=== PATIENT | male | born 1995 | race American Indian/Alaskan Native ===

== ENCOUNTER 2017-03-12 05:49 | Emergency (ER) | payer BC, MEDICAID ==
[2017-03-12 05:49] VITALS: BMI 21.1
[2017-03-12 06:23] VITALS: BP 136/89; PULSE 78; RESP 18; TEMP 98.2; O2SAT 99
--- NOTE | 2017-03-12 06:31 | ED PDOC ---
Arrival/HPI <Erik Yu - Last Filed: 03/12/17 06:51> - General Historian: Patient <Joann Vizcarra - Last Filed: 03/12/17 06:55> - General Chief Complaint: Dental Pain Time Seen by Provider: 03/12/17 06:03 - History of Present Illness Narrative History of Present Illness (Text): 03/12/17 06:27 21 y/o M presents to the ED w/ c/o dental/mouth pain. Pt reports having his R lower wisdom tooth removed on . Pt was prescribed Advil 600mg, Percocet , and PCN. Pt reports taking all medications as prescribed; however, pain is increasing. Pt admits small area of numbness along R mandible as well as swollen glands in R neck. Pt denies F/C, sweating, body aches. Pt denies blooding beyond POD#1. Pt has been chewing gum daily and admits to taking a shot of EtOH last night in an attempt to relieve the pain, however pain worsened. (Joann Vizcarra) Past Medical History - Provider Review Nursing Documentation Reviewed: Yes - Cardiac Hx Cardiac Disorders: No - Pulmonary Hx Respiratory Disorders: No - Neurological Hx Neurological Disorder: No - HEENT Hx HEENT Disorder: No - Renal Hx Renal Disorder: No - Endocrine/Metabolic Hx Endocrine Disorders: No - Hematological/Oncological Hx Blood Disorders: No - Integumentary Hx Dermatological Disorder: Yes Other/Comment: Abcess removed from R arm - Musculoskeletal/Rheumatological Hx Musculoskeletal Disorders: No - Gastrointestinal Hx Gastrointestinal Disorders: No - Genitourinary/Gynecological Hx Genitourinary Disorders: No - Psychiatric Hx Psychophysiologic Disorder: No Hx Substance Use: No - Surgical History Other/Comment: Abcess removal from R arm - Anesthesia Hx Anesthesia: Yes Hx Anesthesia Reactions: No Hx Malignant Hyperthermia: No <Joann Vizcarra - Last Filed: 03/12/17 06:55> Family/Social History - Physician Review Nursing Documentation Reviewed: Yes Family/Social History: No Known Family HX Smoking Status: Never Smoked Hx Alcohol Use: Yes Hx Substance Use: No <Joann Vizcarra - Last Filed: 03/12/17 06:55> Allergies/Home Meds <Erik Yu - Last Filed: 03/12/17 06:51> <Joann Vizcarra - Last Filed: 03/12/17 06:55> Allergies/Adverse Reactions: Allergies No Known Allergies Allergy (Verified 04/13/16 15:54) Review of Systems - Physician Review All systems were reviewed & negative as marked: Yes - Review of Systems Constitutional: absent: Fevers Respiratory: absent: SOB <Joann Vizcarra - Last Filed: 03/12/17 06:55> Physical Exam Vital Signs Reviewed: Yes Temperature: Afebrile Blood Pressure: Normal Pulse: Regular Respiratory Rate: Normal Appearance: Positive for: Non-Toxic, Uncomfortable Pain Distress: Moderate Mental Status: Positive for: Alert and Oriented X 3 - Systems Exam Head: Present: Atraumatic, Normocephalic Pupils: Present: PERRL Extroacular Muscles: Present: EOMI Conjunctiva: Present: Normal Mouth: Present: Moist Mucous Membranes, Normal Lips, Normal Tounge, Other (R manibular wisdom tooth removed. inflammed, erythematous, edematous. buccal swelliing) Pharnyx: Present: Normal. No: TONSILS ENLARGED, Peritonsilar Swelling Nose (External): Present: Atraumatic Neck: Present: Lymphadenopathy (R anterior/submandibular) Cardiovascular: Present: Regular Rate and Rhythm, Normal S1, S2. No: Murmurs Neurological: Present: GCS=15, Speech Normal Skin: Present: Warm, Dry, Normal Color Lymphatic: Present: Cervical Adenopathy Psychiatric: Present: Alert, Oriented x 3, Normal Affect, Normal Mood <Joann Vizcarra - Last Filed: 03/12/17 06:55> Vital Signs Temp Pulse Resp BP Pulse Ox 03/12/17 06:20 98.2 F 78 18 136/89 99 Medical Decision Making <Erik Yu - Last Filed: 03/12/17 06:51> <Joann Vizcarra - Last Filed: 03/12/17 06:55> ED Course and Treatment: Impression: Pt seen and evaluated with resident. Pt presented for dental pain. Pt states he had right lower wisdom tooth removed on 3 days ago and prescribed Advil and Percocet. Pt states dental pain has worsened since then. Aware and agree with HPI, clinical findings, plan, and management. Plan: -- Cleocin -- Toradol -- Reassess and disposition Progress Notes: (Erik Yu) 03/12/17 06:38 21 y/o M s/p R mandibular tooth extraction - clindamycin 300mg Q6hr x7days - Toradol 30mg Stat - f/u w/ dental surgeon (Joann Vizcarra) - Medication Orders Current Medication Orders: Discontinued Medications Clindamycin HCl (Cleocin) 300 mg PO STAT STA PRN Reason: Protocol Stop: 03/12/17 06:49 Ketorolac Tromethamine (Toradol) 60 mg IM STAT STA Stop: 03/12/17 06:49 - PA / [employer] / Resident Statement JESSE has reviewed & agrees with the documentation as recorded. / has examined the patient and agrees with the treatment plan. <Erik Yu - Last Filed: 03/12/17 06:51> Disposition/Present on Arrival <Erik Yu - Last Filed: 03/12/17 06:51> - Present on Arrival Any Indicators Present on Arrival: No History of DVT/PE: No History of Uncontrolled Diabetes: No Urinary Catheter: No History of Decub. Ulcer: No History Surgical Site Infection Following: None - Disposition Have Diagnosis and Disposition been Completed?: Yes Disposition Time: 06:52 <Joann Vizcarra - Last Filed: 03/12/17 06:55> - Disposition Diagnosis: S/P wisdom tooth extraction Disposition: HOME/ ROUTINE Condition: GOOD Discharge Instructions (ExitCare): Dry Socket (ED), Tooth Extraction (ED) Additional Instructions: follow up w/ Dental surgery stop taking Penicillin Take all of Clindamycin Stop gum chewing until cleared by dentist. do not mix narcotics and alcohol do not drive or operate machinery while taking narcotics Prescriptions: Clindamycin [Cleocin] 300 mg PO Q6 #28 cap
== END 2017-03-12 07:07 | disposition home or self-care (01) ==
LOC: ED 05:49
DX: K08.409 Partial loss of teeth, unspecified cause, unspecified class (principal)
CPT/HCPCS: 96372; 99282; J1885

== ENCOUNTER 2018-01-05 17:10 | Inpatient (IN) | payer BC ==
[2018-01-05 17:14] VITALS: BMI 21.9
[2018-01-05] MEDS ORDERED: Sodium Chloride 0.9% 1,000 ML IV STA ×2 (17:38→20:29)
--- NOTE | 2018-01-05 17:39 | ED PDOC ---
Arrival/HPI - General Chief Complaint: GI Problem Time Seen by Provider: 01/05/18 17:29 Historian: Patient - History of Present Illness Narrative History of Present Illness (Text): 01/05/18 17:49 22yo male who was bib EMS with complaint of epigastric abdominal pain, nausea, vomiting since last night. The girlfriend by the bedside states he was [place] [facility] [place] and he was told he have gastritis. States he was discharged with Zofran prescription, but have not been able to picker feeder the prescription. States abdominal pain started after multiple episodes of nonbloody /billious vomiting. +chills. Denies fever, diarrhea, constipation, chest pain, melena, hematemesis, sick contact, travel, any other complaint. Past Medical History - Provider Review Nursing Documentation Reviewed: Yes - Infectious Disease Hx of Infectious Diseases: None - Cardiac Hx Cardiac Disorders: No - Pulmonary Hx Respiratory Disorders: No - Neurological Hx Neurological Disorder: No - HEENT Hx HEENT Disorder: No - Renal Hx Renal Disorder: No - Endocrine/Metabolic Hx Endocrine Disorders: No - Hematological/Oncological Hx Blood Disorders: No - Integumentary Hx Dermatological Disorder: Yes Other/Comment: Abcess removed from R arm - Musculoskeletal/Rheumatological Hx Musculoskeletal Disorders: No - Gastrointestinal Hx Gastrointestinal Disorders: No - Genitourinary/Gynecological Hx Genitourinary Disorders: No - Psychiatric Hx Psychophysiologic Disorder: No Hx Substance Use: Yes - Surgical History Other/Comment: Abcess removal from R arm - Anesthesia Hx Anesthesia: Yes Hx Anesthesia Reactions: No Hx Malignant Hyperthermia: No Family/Social History - Physician Review Nursing Documentation Reviewed: Yes Family/Social History: Unknown Family HX Smoking Status: Light Smoker < 10 Cigarettes Daily Hx Alcohol Use: Yes Frequency of alcohol use: Socially Hx Substance Use: Yes Substance used: marijuana; percocet Allergies/Home Meds Allergies/Adverse Reactions: Allergies No Known Allergies Allergy (Verified 04/13/16 15:54) Home Medications: Home Meds Medication Instructions Recorded Confirmed No Known Home Med 01/05/18 01/05/18 Review of Systems - Physician Review All systems were reviewed & negative as marked: Yes - Review of Systems Constitutional: Normal Eyes: Normal ENT: Normal Respiratory: Normal Cardiovascular: Normal Gastrointestinal: Abdominal Pain, Nausea, Vomiting. absent: Constipation, Diarrhea, Hematochezia, Hematemesis Genitourinary Male: Normal Musculoskeletal: Normal Skin: Normal Neurological: Normal Endocrine: Normal Hemo/Lymphatic: Normal Psychiatric: Normal Physical Exam Vital Signs Reviewed: Yes Vital Signs Temp Pulse Resp BP Pulse Ox 01/05/18 17:23 97.6 F 58 L 18 138/95 H 100 Temperature: Afebrile Blood Pressure: Normal Pulse: Regular Respiratory Rate: Normal Appearance: Positive for: Well-Appearing, Non-Toxic, Comfortable Pain Distress: None Mental Status: Positive for: Alert and Oriented X 3 - Systems Exam Head: Present: Atraumatic, Normocephalic Pupils: Present: PERRL Extroacular Muscles: Present: EOMI Conjunctiva: Present: Normal Mouth: Present: Moist Mucous Membranes Neck: Present: Normal Range of Motion Respiratory/Chest: Present: Clear to Auscultation, Good Air Exchange. No: Respiratory Distress, Accessory Muscle Use Cardiovascular: Present: Regular Rate and Rhythm, Normal S1, S2. No: Murmurs Abdomen: Present: Tenderness (Epigastric tenderness), Normal Bowel Sounds, Other (soft). No: Distention, Peritoneal Signs, Rebound, Guarding, McBurney's Point Tender, Rovsing's Sign Present Back: Present: Normal Inspection Upper Extremity: Present: Normal Inspection. No: Cyanosis, Edema Lower Extremity: Present: Normal Inspection. No: Edema Neurological: Present: GCS=15, CN II-XII Intact, Speech Normal Skin: Present: Warm, Dry, Normal Color. No: Rashes Psychiatric: Present: Alert, Oriented x 3, Normal Insight, Normal Concentration Medical Decision Making ED Course and Treatment: 01/05/18 19:58 IMPRESSION: There is infiltration of fat noted adjacent to the descending colon. Question diverticulitis versus colitis due to infectious versus inflammatory. 01/05/18 20:52 Pt continued to vomit in ED after antiemesis was given at different times in ED. He was hydrated. Leukocytosis without a shift was noted. abdominal/pelvis CT as noted above. Pt was admitted secondary to his intra table vomiting. Flagyl and cipro was given in ED Case was JULIETTE Womack and he accepted pt to his service. - Lab Interpretations Lab Results: 01/05/18 17:20 01/05/18 17:20 Lab Results 01/05/18 17:35: PT 12.2, INR 1.07, APTT 32.3 01/05/18 17:20: Urine Opiates Screen Negative, Urine Methadone Screen Negative, Ur Barbiturates Screen Negative, Ur Phencyclidine Scrn Negative, Ur Amphetamines Screen Negative, U Benzodiazepines Scrn Negative, U Oth Cocaine Metabols Negative, U Cannabinoids Screen Positive H 01/05/18 17:20: Sodium 142, Potassium 4.1, Chloride 105, Carbon Dioxide 22, Anion Gap 19, BUN 11, Creatinine 0.9, Est GFR ( Amer) > 60, Est GFR (Non- Af Amer) > 60, Random Glucose 118 H, Calcium 10.5, Total Bilirubin 0.9, AST 40, ALT 34, Alkaline Phosphatase 71, Total Protein 8.6 H, Albumin 5.0 H, Globulin 3.6, Albumin/Globulin Ratio 1.4, Lipase 37 01/05/18 17:20: Urine Color Yellow, Urine Appearance Clear, Urine pH 7.0, Ur Specific [place] 1.020, Urine Protein Negative, Urine Glucose (UA) Negative, Urine Ketones Trace H, Urine Blood Negative, Urine Nitrate Negative, Urine Bilirubin Negative, Urine Urobilinogen 0.2, Ur Leukocyte Esterase Negative 01/05/18 17:20: WBC 13.7 H, RBC 5.66, Hgb 16.7, Hct 44.6, MCV 78.8 L, MCH 29.5, MCHC 37.4 H, RDW 13.9, Plt Count 280, MPV 10.2, Gran % 67.9, Lymph % (Auto) 24.9 , [place] % (Auto) 3.4, Eos % (Auto) 3.7, Baso % (Auto) 0.1, Gran # 9.27 H, Lymph # (Auto) 3.4, [place] # (Auto) 0.5, Eos # (Auto) 0.5, Baso # (Auto) 0.02 - RAD Interpretation Radiology Orders: 01/05/18 18:06 ABD & PELVIS IV CONTRAST ONLY [CT] Stat - Medication Orders Current Medication Orders: Ciprofloxacin (Cipro 400mg/200ml Dsw) 400 mg in 200 mls @ 133.3 mls/hr IVPB STAT STA PRN Reason: Protocol Stop: 01/05/18 21:40 Metronidazole (Flagyl) 500 mg in 100 mls @ 100 mls/hr IVPB STAT STA PRN Reason: Protocol Stop: 01/05/18 21:09 Last Admin: 01/05/18 20:26 Dose: 100 mls/hr eMAR Start Stop Document 01/05/18 20:26 CNR (Rec: 01/05/18 20:26 CNR [id number]) Intravenous Solution Start Date 01/05/18 Start Time 20:26 End Date 01/05/18 End time 21:26 Total Infusion Time 60 Sodium Chloride (Sodium Chloride 0.9%) 1,000 mls @ 999 mls/hr IV .Q1H1M STA Stop: 01/05/18 21:29 Last Admin: 01/05/18 20:50 Dose: 999 mls/hr eMAR Start Stop Document 01/05/18 20:50 CNR (Rec: 01/05/18 20:50 CNR [id number]) Intravenous Solution Start Date 01/05/18 Start Time 20:50 Discontinued Medications Famotidine (Pepcid) 20 mg IVP STAT STA Stop: 01/05/18 17:39 Last Admin: 01/05/18 17:52 Dose: 20 mg IVP Administration Document 01/05/18 17:52 SF (Rec: 01/05/18 17:52 [email or web address] Charges for Administration # of IVP Administrations 1 Sodium Chloride (Sodium Chloride 0.9%) 1,000 mls @ 1,000 mls/hr IV .Q1H STA Stop: 01/05/18 18:37 Last Admin: 01/05/18 17:53 Dose: 1,000 mls/hr eMAR Start Stop Document 01/05/18 17:53 SF (Rec: 01/05/18 17:53 SF [facility] [email or web address]) Intravenous Solution Start Date 01/05/18 Start Time 17:53 End Date 01/05/18 End time 18:53 Total Infusion Time 60 Metoclopramide HCl (Reglan) 10 mg IVP STAT STA Stop: 01/05/18 19:10 Last Admin: 01/05/18 19:45 Dose: 10 mg IVP Administration Document 01/05/18 19:45 CNR (Rec: 01/05/18 19:45 CNR [id number]) Charges for Administration # of IVP Administrations 1 Ondansetron HCl (Zofran Inj) 4 mg IVP STAT STA Stop: 01/05/18 17:39 Last Admin: 01/05/18 17:52 Dose: 4 mg IVP Administration Document 01/05/18 17:52 SF (Rec: 01/05/18 17:52 SF [email or web address]) Charges for Administration # of IVP Administrations 1 Ondansetron HCl (Zofran Inj) 4 mg IVP STAT STA Stop: 01/05/18 20:27 Last Admin: 01/05/18 20:50 Dose: 4 mg IVP Administration Document 01/05/18 20:50 CNR (Rec: 01/05/18 20:50 CNR [id number]) Charges for Administration # of IVP Administrations 1 Pantoprazole Sodium (Protonix Inj) 40 mg IVP STAT STA Stop: 01/05/18 20:28 Last Admin: 01/05/18 20:50 Dose: 40 mg IVP Administration Document 01/05/18 20:50 CNR (Rec: 01/05/18 20:50 CNR [id number]) Charges for Administration # of IVP Administrations 1 Disposition/Present on Arrival - Present on Arrival Any Indicators Present on Arrival: No History of DVT/PE: No History of Uncontrolled Diabetes: No Urinary Catheter: No History of Decub. Ulcer: No History Surgical Site Infection Following: None - Disposition Have Diagnosis and Disposition been Completed?: Yes Diagnosis: Diverticulitis, Colitis, Intractable vomiting Disposition: HOSPITALIZED Disposition Time: 20:15 Patient Plan: Admission Patient Problems: Current Active Problems Problem Status Onset Colitis Acute Diverticulitis Acute Intractable vomiting Acute Condition: FAIR Forms: Team My Mobile (Ukrainian)
[2018-01-05 18:03] LABS: BASO # 0.02 K/mm3 (0.0-2.0); BASO % 0.1 % (0.0-3.0); EOS # 0.5 (0.0-0.7); EOS % 3.7 % (1.5-5.0); GRAN # 9.27 (1.4-6.5); GRAN % 67.9 % (50.0-68.0); HEMOGLOBIN 16.7 g/dL (14.0-18.0); LYMPH # 3.4 (1.2-3.4); LYMPH % 24.9 % (22.0-35.0); MEAN CELL VOLUME 78.8 fl (80.0-105.0); MEAN CORPUSCULAR HEMOGLOBIN 29.5 pg (25.0-35.0); MEAN CORPUSCULAR HGB CONC 37.4 g/dl (31.0-37.0); MEAN PLATELET VOLUME 10.2 fl (7.0-11.0); MONO # 0.5 (0.1-0.6); MONO % 3.4 % (1.0-6.0); RBC 5.66 10^6/uL (3.5-6.1); RED CELL DISTRIBUTION WIDTH 13.9 % (11.5-14.5); WHITE BLOOD COUNT 13.7 10^3/ul (4.5-11.0)
[2018-01-05 18:04] LABS: URINE BILIRUBIN NEGATIVE (NEGATIVE); URINE BLOOD NEGATIVE (NEGATIVE); URINE GLUCOSE (UA) NEGATIVE (NEGATIVE); URINE LEUKOCYTE ESTERASE NEGATIVE Leu/uL (NEGATIVE); URINE PROTEIN NEGATIVE mg/dL (<30 mg/dL); URINE UROBILINOGEN 0.2 E.U./dL (<1 E.U./dL)
[2018-01-05 18:05] LABS: URINE APPEARANCE CLEAR (CLEAR); URINE COLOR YELLOW (YELLOW)
[2018-01-05 18:10] LABS: ALB/GLOB RATIO 1.4 (1.1-1.8); CALCIUM 10.5 mg/dL (8.4-10.5); GFR AFRICAN-AMERICAN > 60; GFR NON-AFRICAN AMERICAN > 60; LIPASE 37 U/L (23-300)
[2018-01-05 18:11] LABS: INR 1.07 (0.93-1.08); PARTIAL THROMBOPLASTIN TIME 32.3 Seconds (25.1-36.5); PROTHROMBIN TIME 12.2 SECONDS (9.4-12.5)
[2018-01-05 18:12] LABS: ALT/SGPT 34 U/L (7-56); AST/SGOT 40 U/L (17-59); BLOOD UREA NITROGEN 11 mg/dL (7-21)
[2018-01-05] MEDS ORDERED: Iohexol 350 MG/100 ML VIAL ONE (18:12)
[2018-01-05 19:00] LABS: BARBITURATES, UR NEGATIVE (NEGATIVE); BENZODIAZEPINES, UR NEGATIVE (NEGATIVE); OPIATES, UR NEGATIVE (NEGATIVE); PHENCYCLIDINE, UR NEGATIVE (NEGATIVE)
[2018-01-05] MEDS ORDERED: Ciprofloxacin 400mg/200ml D5W 400 MG/200 ML BAG IVPB STA (20:10)
[2018-01-05] MEDS ORDERED: metroNIDAZOLE IV 500 mg/100 ml 500 MG/100 ML BAG IVPB STA (20:10)
[2018-01-05] MEDS: Dextrose 5%/0.9% NS 1,000 ML IV SCH (22:09)
--- NOTE | 2018-01-05 23:00 | CP.PCM.HP ---
<Pk Heredia - Last Filed: 01/05/18 22:52> History of Present Illness - History of Present Illness History of Present Illness: CC: Nausea and Vomiting Pt is a 22 yo M with no significant PMH presents to [facility] [place] due to a 1 day history of abdominal pain, nausea, and vomiting. Pt states that symptoms started late last night and have been continuous all through the day today. Pt states that vomiting was initially clear, but has progressively become more frequent and yellow in color. Pt states that he is experiencing chills and starting to see some streaks of blood in his vomit this evening. Pt states that abdominal is sharp in epigastric region. Pt states that he ate chicken for dinner last night and does not believe he has food poisoning. Pt denies any recent travel or sick contacts. [place] [facility] [place] and was discharged with a diagnosis of gastritis and a prescription for Zofran. Of note, patient admits to daily marijuana use and social EtOH use. Pt states that he has been dealing with some back pain for the last month and has been taking 2 percocets daily, last dose was 3 days ago. Pt denies CP, SOB, diarrhea, constipation, urinary symptoms, fever, [place], or dizziness. PMH: Denied Surg: Denied All: NKDA SH: 1-2 cigarettes/day for 3 yrs, social EtOH use, and marijuana use daily FHx: Non-contributory Present on Admission - Present on Admission Any Indicators Present on Admission: No Review of Systems - Review of Systems Review of Systems: 12 point ROS reviewed and is negative other than what is stated in HPI. Past Patient History - Infectious Disease Hx of Infectious Diseases: None - Past Social History Smoking Status: Light Smoker < 10 Cigarettes Daily - CARDIAC Hx Cardiac Disorders: No - PULMONARY Hx Respiratory Disorders: No - NEUROLOGICAL Hx Neurological Disorder: No - HEENT Hx HEENT Problems: No - RENAL Hx Chronic Kidney Disease: No - ENDOCRINE/METABOLIC Hx Endocrine Disorders: No - HEMATOLOGICAL/ONCOLOGICAL Hx Blood Disorders: No - INTEGUMENTARY Hx Dermatological Problems: Yes Other/Comment: Abcess removed from R arm - MUSCULOSKELETAL/RHEUMATOLOGICAL Hx Musculoskeletal Disorders: No - GASTROINTESTINAL Hx Gastrointestinal Disorders: No - GENITOURINARY/GYNECOLOGICAL Hx Genitourinary Disorders: No - PSYCHIATRIC Hx Psychophysiologic Disorder: No Hx Substance Use: Yes - SURGICAL HISTORY Other/Comment: Abcess removal from R arm - ANESTHESIA Hx Anesthesia: Yes Hx Anesthesia Reactions: No Hx Malignant Hyperthermia: No Meds Allergies/Adverse Reactions: Allergies Allergy/AdvReac Type Severity Reaction Status Date / Time No Known Allergies Allergy Verified 04/13/16 15:54 Physical Exam - Constitutional Appears: In Acute Distress - Head Exam Head Exam: NORMAL INSPECTION - Eye Exam Eye Exam: Normal appearance - ENT Exam ENT Exam: Mucous Membranes Moist - Neck Exam Neck exam: Positive for: Normal Inspection - Respiratory Exam Respiratory Exam: Clear to Auscultation Bilateral. absent: Rales, Rhonchi, Wheezes - Cardiovascular Exam Cardiovascular Exam: RRR, +S1, +S2. absent: Diastolic murmur, Gallop, Rubs, Systolic Murmur - GI/Abdominal Exam GI & Abdominal Exam: Guarding, Tenderness (diffuse, greatest in epigastric region). absent: Distended, Rebound - Extremities Exam Extremities exam: Positive for: normal inspection - Back Exam Back exam: NORMAL INSPECTION - Neurological Exam Neurological exam: Alert, CN II-XII Intact, Oriented x3 - Psychiatric Exam Psychiatric exam: Normal Affect, Normal Mood - Skin Skin Exam: Dry, Intact, Normal Color, Warm Results - Vital Signs Recent Vital Signs: Last Vital Signs Temp 97.9 F 01/05/18 21:30 Pulse 64 01/05/18 21:30 Resp 18 01/05/18 21:30 BP 142/86 01/05/18 21:30 Pulse Ox 100 01/05/18 21:30 - Labs Result Diagrams: 01/05/18 17:20 01/05/18 17:20 Assessment & Plan - Assessment and Plan (Free Text) Assessment: 22 yo M with no significant PMH admitted for intractable abdominal pain, nausea , vomiting. Plan: 1. Abdominal pain with persistent nausea and vomiting - Possible marijuana withdrawal vs. enteric infectious/inflammatory process - CT abdomen/pelvis showed questionable diverticulitis vs. colitis due to infectious vs inflammatory - UDS positive for cannabinoids - Hepatitis panel, HIV, and RPR ordered - D5NS at 125 cc/hr - Zofran 4 mg q4h prn for nausea - Protonix 40 mg IVP q12h - Zosyn IVPB q6h - NPO - GI consulted 2. Possible alcohol withdrawal - [facility] protocol - Ativan 1mg q2h prn - Haldol 2 mg IM q8h prn - Thiamine IV daily 3. Tobacco abuse - Nicotine patch GI/DVT PPx - Protonix - SCDs/AE hose <Ron Womack U - Last Filed: 01/09/18 12:08> Results - Vital Signs Recent Vital Signs: Last Vital Signs Temp 98 F 01/09/18 07:45 Pulse 60 01/09/18 07:45 Resp 20 01/09/18 07:45 BP 99/55 L 01/09/18 07:45 Pulse Ox 98 01/09/18 07:45 - Labs Result Diagrams: 01/08/18 06:00 01/08/18 06:00 Attending/Attestation - Attestation I have personally seen and examined this patient.: Yes I have fully participated in the care of the patient.: Yes I have reviewed all pertinent clinical information: Yes
[2018-01-06] MEDS: Dextrose 5%/0.9% NS 1,000 ML IV SCH ×2 (05:17→18:01)
[2018-01-06 08:01] LABS: BASO # 0.02 K/mm3 (0.0-2.0); BASO % 0.1 % (0.0-3.0); EOS % 0.1 % (1.5-5.0); GRAN # 15.29 (1.4-6.5); GRAN % 84.5 % (50.0-68.0); HEMOGLOBIN 14.4 g/dL (14.0-18.0); MEAN CELL VOLUME 77.5 fl (80.0-105.0); MEAN CORPUSCULAR HEMOGLOBIN 28.6 pg (25.0-35.0); MEAN CORPUSCULAR HGB CONC 36.9 g/dl (31.0-37.0); MEAN PLATELET VOLUME 10.2 fl (7.0-11.0); MONO # 0.8 (0.1-0.6); MONO % 4.3 % (1.0-6.0); RBC 5.03 10^6/uL (3.5-6.1); RED CELL DISTRIBUTION WIDTH 13.6 % (11.5-14.5); WHITE BLOOD COUNT 18.1 10^3/ul (4.5-11.0)
[2018-01-06 08:11] LABS: ALB/GLOB RATIO 1.4 (1.1-1.8); ALT/SGPT 28 U/L (7-56); AST/SGOT 34 U/L (17-59); BILIRUBIN,DIRECT 0.2 mg/dL (0.0-0.4); BLOOD UREA NITROGEN 8 mg/dL (7-21); CALCIUM 9.4 mg/dL (8.4-10.5); GFR AFRICAN-AMERICAN > 60; GFR NON-AFRICAN AMERICAN > 60
[2018-01-06] MEDS: Piperacillin/Tazobact 3.375 gm 100 ML IVPB SCH ×2 (08:45→08:50)
--- NOTE | 2018-01-06 09:13 | CT ---
PROCEDURE: CT Abdomen and Pelvis with contrast HISTORY: abdominal pain COMPARISON: None. TECHNIQUE: Contrast dose: 100 cc Omnipaque 350 Radiation dose: Total exam DLP = 228.36 mGy-cm. This CT exam was performed using one or more of the following dose reduction techniques: Automated exposure control, adjustment of the mA and/or kV according to patient size, and/or use of iterative reconstruction technique. FINDINGS: LOWER THORAX: Unremarkable. LIVER: Unremarkable. No gross lesion or ductal dilatation. GALLBLADDER AND BILE DUCTS: Unremarkable. PANCREAS: Unremarkable. No gross lesion or ductal dilatation. SPLEEN: Unremarkable. ADRENALS: Unremarkable. No mass. KIDNEYS AND URETERS: Unremarkable. No hydronephrosis. No solid mass. VASCULATURE: Unremarkable. No aortic aneurysm. BOWEL: Inflammatory changes in the fat adjacent to the descending colon likely epiploic appendagitis. APPENDIX: Normal appendix. PERITONEUM: Unremarkable. No free fluid. No free air. LYMPH NODES: Unremarkable. No enlarged lymph nodes. BLADDER: Unremarkable. REPRODUCTIVE: Unremarkable. BONES: No acute fracture. OTHER FINDINGS: None. IMPRESSION: Inflammatory changes adjacent to the descending colon, short segment consistent with epiploic appendagitis. Concordant results (preliminary interpretation) provided by [facility] [facility]. Procedure Completed: 19:04 Preliminary ([facility]) Report: Dictated and Authenticated: 19:48 Final Interpretation: 09:11 January 06, 2018.
[2018-01-06] MEDS: Thiamine 100 mg/ml Inj IV SCH (09:25)
[2018-01-06] MEDS: Cefepime 1gm in NS 100ml 1 GM/100 ML BAG IVPB SCH ×3 (09:26→21:54)
[2018-01-06] MEDS: metroNIDAZOLE IV 500 mg/100 ml 500 MG/100 ML BAG IVPB SCH ×3 (09:26→21:54)
--- NOTE | 2018-01-06 10:37 | RAD ---
HISTORY: LEUCOCYTOSIS COMPARISON: No prior. TECHNIQUE: Chest PA and lateral FINDINGS: LUNGS: No active pulmonary disease. PLEURA: No significant pleural effusion identified. No pneumothorax apparent. CARDIOVASCULAR: Normal. OSSEOUS STRUCTURES: No significant abnormalities. VISUALIZED UPPER ABDOMEN: Normal. OTHER FINDINGS: None. IMPRESSION: No active disease.
[2018-01-06 11:39] LABS: HEPATITIS B SURFACE AG Negative (NEGATIVE)
[2018-01-06 11:44] LABS: HEPATITIS A IGM NEGATIVE (NEGATIVE); HEPATITIS B CORE AB NEGATIVE (NEGATIVE)
[2018-01-06 11:56] LABS: HEPATITIS C ANTIBODY NEGATIVE (NEGATIVE)
--- NOTE | 2018-01-06 13:54 | PN ---
patient is seen in room 570, bed 2. The patient is lying in the bed and complaining of nausea, but the patient is not throwing up at present. Overnight nurses' notes were reviewed. The patient required Ativan IV push for a CIWA score of 15 and the patient slept well overnight. OBJECTIVE VITAL SIGNS: T-max 99.4; heart rate 63, 64, 58 100; blood pressure 117/79, 117/71, 142/86, 138/95; respirations 20 to 18; O2 sat 98% to 100%. GENERAL: The patient is seen lying in the bed. HEENT: Head examination, normocephalic and atraumatic. HEENT examination shows pink conjunctivae. Anicteric sclerae. No oropharyngeal lesion. Dry oral mucosa. No neck rigidity. CHEST: Symmetrical. LUNGS: Shows no rales, crackles or wheezing. CARDIOVASCULAR: S1, S2. Regular rhythm. Abdomen: Soft. Positive bowel sound. Positive left lower quadrant, left periumbilical, suprapubic tenderness noted. No rebound tenderness noted. No costovertebral angle tenderness. GENITALIA: Male. RECTAL: Deferred. EXTREMITIES: Shows no pitting edema, no calf tenderness, no Homans' sign. SKIN: Examination shows multiple tattoos noted on the upper extremity and the trunk. MUSCULOSKELETAL: Examination shows a body mass index of 22. Cranial nerves II-XII limited. Gait examination is not tested. Motor strength is 5/5, upper and lower extremity. PSYCHIATRIC: Examination is negative for anxiety, depression. Negative for suicidal and homicidal ideation. Negative for auditory and visual hallucination. DIAGNOSTIC DATA: From January 06, WBC 18.1, hemoglobin/hematocrit 14.4 and 39, platelets 261,000. Granulocytes 84% segs. Sodium 141, potassium 3.6, chloride 107, CO2 24, anion gap 13, BUN 8, creatinine 0.8. GFR greater than 60, glucose 146, calcium 9.4, phosphorus 2.7, magnesium 1.8. LFTs are normal. Urine drug screen positive for cannabinoids. CT of the abdomen and pelvis was noted. IMPRESSION AND PLAN 1. Questionable and possible systemic inflammatory response syndrome. 2. Leukocytosis. 3. Descending colon diverticulitis versus colitis with infiltration of the adjacent fat. 4. History of marijuana, alcohol and nicotine dependence. 5. Granulocytosis. 6. Hyperglycemia. 7. Microscopic hematuria. 8. Urine drug screen positive for cannabinoids. 9. Questionable marijuana versus alcohol withdrawal with symptoms of nausea vomiting and abdominal pain. 10. Active nicotine, alcohol and marijuana use. PLAN: At this time, the patient has been ordered hepatitis serologies; repeat CMP, LFT, magnesium, phosphorus ordered. HIV results are pending. HIV and RPR is ordered, but not done yet since yesterday. Current consultation, Gastroenterology. The patient is on presently on CIWA protocol, Ativan 1 mg IV every 2 to 4 hours p.r.n., D5 normal saline at 125 mL an hour, Haldol 2 mg IM every 8 hours p.r.n., nicotine patch 21 mg daily, Protonix 40 mg IV every 12 hours, , thiamine 100 mg IV daily, Zofran 4 mg IV every 4 hours p.r.n. The patient is on n.p.o. diet. The patient is on alcohol withdrawal protocol. The patient is on aspiration precaution. The patient is on neuro checks. Out of bed, SCDs, VÍCTOR stockings. The patient has been counseled about cessation of smoking, alcohol and marijuana use. The patient's repeat lab work will be ordered. At present, the patient is awaiting evaluation and recommendation by Gastroenterology. The patient will be continued on IV antibiotics, which the patient was placed on yesterday. Zosyn was given to the patient. The patient will be started empirically on cefepime and Flagyl since Zosyn requires ID clearance. The patient will be started on . At present, the patient will be ordered blood and urine cultures if not done. Procalcitonin level will be ordered. Lactic acid will be ordered. Chest x-ray will be ordered if not done. As mentioned, the patient has been counseled about cessation of smoking, alcohol, drug use. The patient's further management will be dependent upon the patient's clinical condition, hemodynamic status and as per the patient response to therapeutic intervention, as per the patient's diagnostic test results and as per recommendation by all the physicians involved in the care of the patient. Dictated and electronically signed, not read. Ron Womack MD [facility] # [id number] MTDD
--- NOTE | 2018-01-06 23:54 | CON ---
DATE: 01/06/2018 HISTORY OF PRESENT ILLNESS: I saw Mr. Echevarria this morning. He is a 22-year-old black male, no significant GI history or any history for that matter, presenting to the hospital with a one-half day complaints of severe abdominal pain, increasing in intensity. Patient also noted significant amount of nausea and vomiting. Patient states the pain started abruptly and then continued, not associated with significant amount of bleeding or hematemesis. He has never had this type of pain before. Patient noted with walking an increased intensity of discomfort. He has noted increase in constipation over the past couple of weeks due to analgesics for back pain. PHYSICAL EXAMINATION: VITAL SIGNS: I reviewed this patient's vital signs. HEENT: Noncontributory. LUNGS: Clear to auscultation. HEART: Regular rhythm. ABDOMEN: Soft. Bowel sounds are within the left periumbilical area and the left lower quadrant. Right upper quadrant and right lower quadrant are noncontributory. LABORATORY DATA: Indicated white count today of 18,000 with H and H of 14 and 39, platelet count of 261. Chemistry indicates a glucose of 146. Rest of his comprehensive metabolic is noncontributory. Toxicology indicates positive for cannabinoids. Hepatitis profile is negative. Review of the abdominopelvic CT scan indicates inflammatory changes in the fat adjacent to the descending colon. This was read as epiploic appendagitis. ASSESSMENT: A 22-year-old black male here with increasing abdominal pain. I thought the pain in his case is [id number] with periumbilical, also moderately severe in the epigastric area. Symptoms suggestive of inflammatory condition in the area of the descending colon. Interpretation of the CT noted above. In view of the orders for this particular patient, Dr. Womack has placed this patient on pantoprazole b.i.d. as well as cefepime and metronidazole, which is adequate. Patient is on n.p.o. diet; consider ordering very small volume of ice chips if nausea permits. Edouard Stewart DO, PhD POPPY
[2018-01-07] MEDS ORDERED: Simethicone 40 mg/0.6 ml Liquid (30 ml) PO ONE (01:55)
[2018-01-07] MEDS: HYDROmorphone 1 mg/ml ISec IVP PRN ×2 (04:57→20:58)
[2018-01-07] MEDS: Dextrose 5%/0.9% NS 1,000 ML IV SCH ×3 (05:05→15:30)
[2018-01-07] MEDS: metroNIDAZOLE IV 500 mg/100 ml 500 MG/100 ML BAG IVPB SCH ×3 (05:45→22:22)
[2018-01-07] MEDS: Cefepime 1gm in NS 100ml 1 GM/100 ML BAG IVPB SCH ×3 (05:57→21:00)
[2018-01-07 08:12] LABS: BASO # 0.02 K/mm3 (0.0-2.0); BASO % 0.2 % (0.0-3.0); EOS # 0.2 (0.0-0.7); EOS % 1.4 % (1.5-5.0); GRAN # 7.79 (1.4-6.5); GRAN % 72.5 % (50.0-68.0); HEMOGLOBIN 13.6 g/dL (14.0-18.0); LYMPH # 2.2 (1.2-3.4); LYMPH % 20.7 % (22.0-35.0); MEAN CELL VOLUME 78.2 fl (80.0-105.0); MEAN CORPUSCULAR HEMOGLOBIN 28.8 pg (25.0-35.0); MEAN CORPUSCULAR HGB CONC 36.8 g/dl (31.0-37.0); MEAN PLATELET VOLUME 10.4 fl (7.0-11.0); MONO # 0.6 (0.1-0.6); MONO % 5.2 % (1.0-6.0); RBC 4.73 10^6/uL (3.5-6.1); RED CELL DISTRIBUTION WIDTH 13.6 % (11.5-14.5); WHITE BLOOD COUNT 10.8 10^3/ul (4.5-11.0)
[2018-01-07 08:22] LABS: ALB/GLOB RATIO 1.3 (1.1-1.8); ALBUMIN 3.6 g/dL (3.0-4.8); ALT/SGPT 36 U/L (7-56); AST/SGOT 36 U/L (17-59); BILIRUBIN,DIRECT 0.2 mg/dL (0.0-0.4); BLOOD UREA NITROGEN 7 mg/dL (7-21); CALCIUM 9.1 mg/dL (8.4-10.5); GFR AFRICAN-AMERICAN > 60; GFR NON-AFRICAN AMERICAN > 60
[2018-01-07] MEDS ORDERED: Potassium Chloride 20 mEq ER Tab PO ONE (09:00)
[2018-01-07] MEDS: Thiamine 100 mg/ml Inj IV SCH (09:32)
--- NOTE | 2018-01-07 11:07 | PN ---
DATE: SUBJECTIVE: I saw Mr. Echevarria this morning. This is a 22-year-old black male, admitted with complaints of abdominal pain. The patient was found to have fat stranding in the area of the distal descending colon. He had a CT scan suggestive of diverticulitis in the lateral area. At bedside this morning, the patient still complains of abdominal pain in the range of 6/10 to 7/10. He has no analgesic ordered. In addition, the patient was complaining of epigastric discomfort. Intake of very, very small amounts of ice chips yesterday produced some discomfort I guess. He was advised to be very discretionary about the amount of ice chips or liquids taken. The patient denies any hematemesis or rectal bleeding. PHYSICAL EXAMINATION VITAL SIGNS: I reviewed this patient's vital signs. HEENT: Significant for dry mouth. LUNGS: Clear to auscultation. HEART: Regular rhythm. ABDOMEN: Soft. No tenderness elicited in the right upper or right lower quadrant. Palpation of the left paraumbilical and left lower quadrant produces a fullness, also grade 5/10 to 6/10 abdominal pain. He is also very tender in the epigastric area. OVERALL ASSESSMENT: This is a 22-year-old black male, admitted with complaints of abdominal pain for symptoms and findings suggestive of diverticulitis of the distal descending colon. The patient is currently on antibiotic therapy in the form of cefepime and metronidazole as per Dr. Womack. The patient has Zofran ordered for nausea. Evaluation of the patient this morning, due to abdominal pain, I ordered low-dose which can be titrated to pain control. He is currently on 1 mg every 6 hours. Now, the patient will be evaluated by Dr. Womack later on this morning. Dictation on behalf of Dr. Moody Lowe, who is on vacation. Edouard Stewart DO
--- NOTE | 2018-01-07 19:56 | PN ---
DATE: 01/07/2018 SUBJECTIVE: The patient is seen lying in the bed in room 570, bed 2. According to the patient's nurses, the patient had intermittent left-sided abdominal pain. The patient had belching. The patient yesterday was given Reglan and Zofran with improvement. Today, the patient had complained of some headache, for which the patient requires Tylenol. The patient was seen by me. The patient categorically denies any nausea or vomiting in the last more than 12 hours and almost 24 hours. The patient says his symptoms have significantly improved. The patient is seen lying in the bed. OBJECTIVE: VITAL SIGNS: T-max 99.4, down to 98; heart rate 84, 56, 159; blood pressure 132/77, 142/89, 117/79; respirations 16; O2 sat 99%, 98%, 100%. HEENT: Head examination: Normocephalic, atraumatic. HEENT examination shows pink conjunctivae. Anicteric sclerae. No oropharyngeal lesion. NECK: No neck rigidity. CHEST: Symmetrical. LUNGS: Show no rales, crackles, or wheezing. CARDIOVASCULAR: S1 and S2, regular rhythm. ABDOMEN: Soft. Positive bowel sounds. No guarding noted. No rebound tenderness noted in upper and lower abdominal quadrant. No costovertebral angle tenderness. GENITALIA: Male. RECTAL: Deferred. EXTREMITIES: Show no pitting edema, no calf numbness, no Homans sign. SKIN: Multiple skin tattoos noted on the body. MUSCULOSKELETAL: Shows a body mass index of 22. NEUROLOGIC: The patient is alert, awake, and oriented x3. Cranial nerves II through XII intact. No asterixis noted. No fasciculation, tremors noted. DIAGNOSTICS: 01/07: WBC count is 10.8 down from 18.1, hemoglobin and hematocrit 13.6 and 37, platelets 247. Granulocytes, 72% segs. Sodium 140, potassium 3.1, chloride 108, CO2 of 26, anion gap 9. BUN 7, creatinine 0.8. GFR is greater than 60. Glucose 90. Lactic acid 1.1. LFTs are normal. Calcium 9.1, phosphorus 2.6, magnesium 1.9. LFTs are normal. Procalcitonin level less than 0.05. Trace ketone in the urinalysis. RPR nonreactive. Hepatitis A, B, C serologies negative. Blood urine cultures negative 24 hours. IMPRESSION: 1. Questionable systemic inflammatory response syndrome with leukocytosis, low grade fever, tachycardia. 2. Transient hypertension. 3. Leukocytosis with granulocytosis. 4. Microcytic anemia. 5. Hypokalemia. 6. Ketonuria. 7. Urine drug screen positive for cannabinoids. 8. Nicotine, alcohol, and marijuana use and dependence. 9. Possible epiploic appendagitis with inflammatory changes adjacent to the descending colon. 1. Questionable and possible systemic inflammatory response syndrome. 2. Leukocytosis. 3. Descending colon diverticulitis versus colitis with infiltration of the adjacent fat. 4. History of marijuana, alcohol and nicotine dependence. 5. Granulocytosis. 6. Hyperglycemia. 7. Microscopic hematuria. 8. Urine drug screen positive for cannabinoids. 9. Questionable marijuana versus alcohol withdrawal with symptoms of nausea vomiting and abdominal pain. 10. Active nicotine, alcohol and marijuana use. PLAN: At this time, the patient has been ordered repeat labs. The patient's HIV is pending. Hepatitis serologies, RPR is negative. The patient is on CIWA protocol, Ativan 1 mg IV every 2 hours p.r.n. This patient is on D5 normal saline at 125 mL/hour, Dilaudid 1 mg IV every 6 hours p.r.n., Flagyl 500 IV every 8 hours, Haldol 2 mg IM every 8 hours p.r.n. The patient is ordered potassium riders 20 mEq x2. The patient has been ordered cefepime 1 g IV every 8 hours. The patient was given simethicone one dose. The patient is on nicotine patch 21 mg daily, Protonix 40 IV every 12 hours, Reglan 10 mg IV every 6 hours x8 doses, Tylenol 650 mg p.o. suppository every 6 hours p.r.n., thiamine 100 mg IV daily, Zofran 4 mg IV every 4 hours daily. The patient was started on liquid diet as the patient is totally abdominal pain free and the patient has no nausea and vomiting for more than 12 to 24 hours. The patient has been counseled about cessation of smoking, alcohol, and drug use, which he acknowledged understanding. All questions concerned answered. The patient updated about his condition in layman's language. Dictated and electronically signed, not read. Ron MD [facility] # [id number] POPPY
[2018-01-08] MEDS: Dextrose 5%/0.9% NS 1,000 ML IV SCH ×2 (03:55→17:01)
[2018-01-08] MEDS: Cefepime 1gm in NS 100ml 1 GM/100 ML BAG IVPB SCH ×3 (05:05→21:20)
[2018-01-08] MEDS: HYDROmorphone 1 mg/ml ISec IVP PRN (05:46)
[2018-01-08] MEDS: metroNIDAZOLE IV 500 mg/100 ml 500 MG/100 ML BAG IVPB SCH ×3 (06:26→21:20)
[2018-01-08 07:05] LABS: BASO # 0.03 K/mm3 (0.0-2.0); BASO % 0.4 % (0.0-3.0); EOS # 0.8 (0.0-0.7); EOS % 9.1 % (1.5-5.0); GRAN # 3.99 (1.4-6.5); GRAN % 48.6 % (50.0-68.0); HEMOGLOBIN 15.1 g/dL (14.0-18.0); LYMPH # 2.9 (1.2-3.4); LYMPH % 35.4 % (22.0-35.0); MEAN CELL VOLUME 77.7 fl (80.0-105.0); MEAN CORPUSCULAR HEMOGLOBIN 29.3 pg (25.0-35.0); MEAN CORPUSCULAR HGB CONC 37.8 g/dl (31.0-37.0); MEAN PLATELET VOLUME 10.5 fl (7.0-11.0); MONO # 0.5 (0.1-0.6); MONO % 6.5 % (1.0-6.0); RBC 5.15 10^6/uL (3.5-6.1); RED CELL DISTRIBUTION WIDTH 13.5 % (11.5-14.5); WHITE BLOOD COUNT 8.2 10^3/ul (4.5-11.0)
[2018-01-08 07:11] LABS: ALB/GLOB RATIO 1.3 (1.1-1.8); ALBUMIN 3.9 g/dL (3.0-4.8); ALT/SGPT 36 U/L (7-56); AST/SGOT 39 U/L (17-59); BILIRUBIN,DIRECT 0.2 mg/dL (0.0-0.4); BLOOD UREA NITROGEN 7 mg/dL (7-21); CALCIUM 9.3 mg/dL (8.4-10.5); GFR AFRICAN-AMERICAN > 60; GFR NON-AFRICAN AMERICAN > 60
[2018-01-08] MEDS ORDERED: HYDROmorphone 1 mg/ml ISec IVP PRN (08:17)
[2018-01-08] MEDS: HYDROmorphone 0.5 mg/0.5 ml ISec IVP PRN ×3 (10:47→21:19)
[2018-01-08] MEDS: Thiamine 100 mg/ml Inj IV SCH (10:51)
--- NOTE | 2018-01-08 10:59 | PN ---
DATE: 01/08/2018 This progress note is being dictated on behalf of Dr. Moody Lowe, who is still on vacation. SUBJECTIVE: I evaluated Mr. Zhao this morning. This is a 22-year-old black male, who has complaints of abdominal pain, which has improved significantly on the current therapeutic regimen, which includes cefepime ordered by Dr. Womack for diverticulitis type presentation. Pain is decreased to a level of roughly 2 to 3/10. No rectal bleeding or hematemesis noted. The patient is currently on a liquid diet. PHYSICAL EXAMINATION: VITAL SIGNS: I reviewed this patient's vital signs. HEENT: Noncontributory. LUNGS: Clear to auscultation. HEART: Regular rhythm. ABDOMEN: Soft. Not tender in the right upper quadrant, right lower quadrant or above the umbilicus. He still has moderate degree of epigastric discomfort. There is still fullness noted in the left periumbilical and the left lower quadrant. LABORATORY DATA: Over the past couple of days reviewed. yesterday morning the patient was hypokalemic, this will be addressed by Dr. Womack. ASSESSMENT: A 22-year-old black male admitted and being treated for problem of diverticulitis type presentation involving the left lower quadrant and sigmoid. Since the patient has been doing extremely well, may consider advance of diet possibly to very small portions of soft. One might also consider either very late today or tomorrow, possibly discharging the patient to complete regimen on an outpatient basis. The patient also would need a colonoscopy at some later date as well. This would probably be suggested in the range of 6 to 8 weeks after completion of antibiotic therapy. Antibiotic therapy should be roughly for about 10 days after discharge. Edouard Stewart DO
--- NOTE | 2018-01-08 12:31 | CP.PCM.PN ---
<Ed Correa - Last Filed: 01/08/18 13:21> Subjective - Date & Time of Evaluation Date of Evaluation: 01/08/18 Time of Evaluation: 07:40 - Subjective Subjective: Ed Correa D.O. PGY-2, Internal Medicine, Dr. Womack Service 22 year old male with no significant PMH who presented to [facility] with complaints abdominal pain, nausea, and vomiting for 1 day. Patient was seen and examined at bedside. Doing better with diet. Pain also well managed. Objective - Vital Signs/Intake and Output Vital Signs (last 24 hours): Temp Pulse Resp BP Pulse Ox 97.8 F 69 20 114/77 100 01/08/18 08:25 01/08/18 08:25 01/08/18 08:25 01/08/18 08:25 01/08/18 08:25 Intake and Output: 01/08/18 01/08/18 06:59 18:59 Intake Total 480 Balance 480 - Medications Medications: Current Medications Acetaminophen (Tylenol 325mg Tab) 650 mg PO Q6 PRN PRN Reason: TEMP>=99.5F Acetaminophen (Tylenol 650 Mg Supp) 650 mg RC Q6H PRN PRN Reason: TEMP>=99.5F Haloperidol Lactate (Haldol) 2 mg IM Q8H PRN PRN Reason: Agitation Hydromorphone HCl (Dilaudid) 0.5 mg IVP Q4H PRN PRN Reason: Pain, severe (8-10) Last Admin: 01/08/18 10:47 Dose: 0.5 mg Dextrose/Sodium Chloride (Dextrose 5%/0.9% Ns 1000 Ml) 1,000 mls @ 125 mls/hr IV .Q8H CLARISSE Last Admin: 01/08/18 03:55 Dose: 125 mls/hr Metronidazole (Flagyl) 500 mg in 100 mls @ 100 mls/hr IVPB Q8 CLARISSE PRN Reason: Protocol Last Admin: 01/08/18 06:26 Dose: 100 mls/hr Cefepime HCl (Maxipime 1gm) 1 gm in 100 mls @ 100 mls/hr IVPB Q8 CLARISSE PRN Reason: Protocol Last Admin: 01/08/18 05:05 Dose: 100 mls/hr Lorazepam (Ativan) 1 mg IVP Q2H PRN; Protocol PRN Reason: Symptoms of alcohol withdrawl Last Admin: 01/07/18 22:22 Dose: 1 mg Metoclopramide HCl (Reglan) 10 mg IVP Q6 PRN PRN Reason: Nausea/Vomiting Stop: 01/08/18 18:01 Last Admin: 01/08/18 10:48 Dose: 10 mg Nicotine (Nicoderm Cq) 1 patch TD DAILY [facility] Last Admin: 01/08/18 10:51 Dose: 1 patch Ondansetron HCl (Zofran Inj) 4 mg IVP Q4H PRN PRN Reason: Nausea/Vomiting Last Admin: 01/06/18 18:01 Dose: 4 mg Pantoprazole Sodium (Protonix Inj) 40 mg IVP Q12 [facility] Last Admin: 01/08/18 10:50 Dose: 40 mg Thiamine HCl (Vitamin B1 Inj) 100 mg IV DAILY [facility] Last Admin: 01/08/18 10:51 Dose: 100 mg - Labs Labs: 01/08/18 06:00 01/08/18 06:00 PT 12.2 SECONDS (9.4-12.5) 01/05/18 17:35 INR 1.07 (0.93-1.08) 01/05/18 17:35 APTT 32.3 Seconds (25.1-36.5) 01/05/18 17:35 - Constitutional Appears: Well, No Acute Distress - Head Exam Head Exam: NORMAL INSPECTION - Eye Exam Eye Exam: Normal appearance - ENT Exam ENT Exam: Mucous Membranes Moist - Neck Exam Neck exam: Positive for: Normal Inspection - Respiratory Exam Respiratory Exam: Clear to Auscultation Bilateral. absent: Rales, Rhonchi, Wheezes - Cardiovascular Exam Cardiovascular Exam: RRR, +S1, +S2. absent: Diastolic murmur, Gallop, Rubs, Systolic Murmur - GI/Abdominal Exam GI & Abdominal Exam: Guarding, Tenderness (improved epigastric ). absent: Distended, Rebound - Extremities Exam Extremities exam: Positive for: normal inspection - Neurological Exam Neurological exam: Alert, CN II-XII Intact, Oriented x3 - Psychiatric Exam Psychiatric exam: Normal Affect, Normal Mood - Skin Skin Exam: Dry, Intact, Normal Color, Warm Assessment and Plan - Assessment and Plan (Free Text) Assessment: 22 year old male with no significant PMH who presented to [facility] with complaints abdominal pain, nausea, and vomiting for 1 day. Plan: 1. SIRS with possible epiploic appendagitis by descending colon Inflammatory changes seen on CT abd/pelvis On cefepime day 3 Cont pain control Advancing diet as tolerated Cont IV hydration GI following, recs appreciated, will need f/u as outpatient after D/C for colonoscopy 6-8 weeks 2. Possible alcohol withdrawal Cont CIWA protocol Cont Ativan 1mg q2h prn Cont Haldol 2 mg IM q8h prn Cont Thiamine IV daily 3. Tobacco abuse Cont Nicotine patch Counseled on cessation GI/DVT PPx: Protonix/SCDs/AE hose Patient was seen and examined and case was discussed at length with attending physician. <Ron Womack U - Last Filed: 01/09/18 12:10> Objective - Vital Signs/Intake and Output Vital Signs (last 24 hours): Temp Pulse Resp BP Pulse Ox 98 F 60 20 99/55 L 98 01/09/18 07:45 01/09/18 07:45 01/09/18 07:45 01/09/18 07:45 01/09/18 07:45 Intake and Output: 01/09/18 01/09/18 06:59 18:59 Intake Total 660 Balance 660 - Labs Labs: 01/08/18 06:00 01/08/18 06:00 PT 12.2 SECONDS (9.4-12.5) 01/05/18 17:35 INR 1.07 (0.93-1.08) 01/05/18 17:35 APTT 32.3 Seconds (25.1-36.5) 01/05/18 17:35 Attending/Attestation - Attestation I have personally seen and examined this patient.: Yes I have fully participated in the care of the patient.: Yes I have reviewed all pertinent clinical information, including history, physical exam and plan: Yes Notes (Text): Please see/read my dictated notes.
[2018-01-08 16:00] VITALS: O2SAT 98
--- NOTE | 2018-01-08 16:26 | PN ---
DATE: 01/08/2018 SUBJECTIVE: The patient is seen in room 570, bed 2. Overnight nurse's notes were reviewed. The patient had 1 or 2 episodes of abdominal pain for which the patient required IV Dilaudid. The patient denied any nausea, vomiting, diarrhea. The patient tolerated liquid diet, which was ordered yesterday. The patient is alert, awake, responsive, appears to be more comfortable. PHYSICAL EXAMINATION: VITAL SIGNS: T-max 98; heart rate 54, 59; blood pressure 129/91; respirations 18; O2 sat 100%. As mentioned, the patient had 1 episode of abdominal pain for which the patient required Dilaudid. After that the pain resolved. No episodes of nausea, vomiting documented. The patient is seen lying in the bed. HEENT: Head examination normocephalic, atraumatic. HEENT examination shows pink conjunctivae. Anicteric sclerae. No oropharyngeal lesion. No neck rigidity. CHEST: Symmetrical. LUNGS: Shows no rales, crackles or wheezing. CARDIOVASCULAR: S1, S2. Regular rhythm. ABDOMEN: Soft. No rebound tenderness noted in the left quadrant. No guarding. No rigidity. No costovertebral angle tenderness. Questionable mild voluntary guarding noted in the left lower quadrant. No rebound tenderness. No suprapubic tenderness. No right and left upper quadrant tenderness noted. No periumbilical or epigastric tenderness noted. GENITALIA: Male. RECTAL: Deferred. EXTREMITIES: Shows no pitting edema, no calf tenderness, no Homans' sign. NEUROLOGIC: The patient is alert, awake, oriented x3. Motor strength is 5/5 in upper and lower extremity. MUSCULOSKELETAL: Shows a body mass index of 21. Cranial nerves II through XII grossly intact. VASCULAR: Palpable pulses. DIAGNOSTICS: On 01/08/2018, WBC 8.2, hemoglobin and hematocrit 15.1 and 40.0, platelet 226. Sodium 140, potassium 3.7, chloride 109, CO2 of 22, BUN 7, creatinine 0.8, glucose 99, calcium 9.3, phosphorus 3.4, magnesium 2.0. IMPRESSION AND PLAN: 1. Abdominal pain (resolved versus resolving). 2. Questionable and possible left descending colon diverticulitis versus colitis versus epiploic appendagitis. 3. History of nicotine, alcohol and marijuana use and dependence. 4. Status post leukocytosis. 5. Questionable systemic inflammatory response syndrome, leukocytosis, tachycardia and granulocytosis. 6. Abdominal pain secondary to above. 1. Questionable systemic inflammatory response syndrome with leukocytosis, low grade fever, tachycardia. 2. Transient hypertension. 3. Leukocytosis with granulocytosis. 4. Microcytic anemia. 5. Hypokalemia. 6. Ketonuria. 7. Urine drug screen positive for cannabinoids. 8. Nicotine, alcohol, and marijuana use and dependence. 9. Possible epiploic appendagitis with inflammatory changes adjacent to the descending colon. 1. Questionable and possible systemic inflammatory response syndrome. 2. Leukocytosis. 3. Descending colon diverticulitis versus colitis with infiltration of the adjacent fat. 4. History of marijuana, alcohol and nicotine dependence. 5. Granulocytosis. 6. Hyperglycemia. 7. Microscopic hematuria. 8. Urine drug screen positive for cannabinoids. 9. Questionable marijuana versus alcohol withdrawal with symptoms of nausea vomiting and abdominal pain. 10. Active nicotine, alcohol and marijuana use. Plan at this time, the patient will be started on GI altered diet. The patient is presently on IV fluid. The patient is on IV fluid D5 normal saline at 125 mL an hour, Ativan 1 mg IV every 2 p.r.n., Dilaudid 0.5 to 1 mg IV every 6 p.r.n., Flagyl 500 IV every 8, Haldol 2 mg IM every 8 hours p.r.n., cefepime 1 g IV every 8, nicotine patch 21 mg daily, , Reglan 10 mg IV every 6 hours for total of 8 doses, Tylenol 650 mg p.o. suppository every 8 and every 6 p.r.n., thiamine 100 mg IV daily. The patient is on Zofran 4 mg IV q. 4 p.r.n. At present, the patient's diet will be advanced to altered GI hepatic diet and the patient will be monitored for tolerance. If the patient is able to tolerate diet and has complete resolution of abdominal pain and no recurrence of nausea, vomiting, the patient will be considered for discharge very soon on p.o. antibiotics. The patient has been again re-counseled about cessation of smoking, alcohol and recreational drug use. Which he acknowledged and understand. The patient has been updated about his diagnoses, test results and recommendation by all the physicians involved in the care of the patient, which he acknowledged and understand. Dictated and electronically signed, not read. Ron Womack MD [facility]
[2018-01-08 23:08] VITALS: RESP 20
[2018-01-09] MEDS ORDERED: Simethicone 80 mg Chewtab PO ONE (02:21)
[2018-01-09] MEDS: metroNIDAZOLE IV 500 mg/100 ml 500 MG/100 ML BAG IVPB SCH (05:39)
[2018-01-09] MEDS: Cefepime 1gm in NS 100ml 1 GM/100 ML BAG IVPB SCH (05:40)
[2018-01-09 07:46] VITALS: BP 99/55; PULSE 60; TEMP 98
--- NOTE | 2018-01-09 10:38 | PN ---
DATE: SUBJECTIVE: I saw Mr. Echevarria this morning. He is a 22-year-old black male with complaints of severe abdominal pain, found to have diverticulitis-type picture in the area of the distal descending colon and sigmoid. The patient is improved on current therapeutic regimen and will be going home this morning on antibiotics for duration of at least 8 or 9 days and probably would be beneficial for the patient of significant discretion with his diet. He tolerated the soft diet yesterday with no problems. PHYSICAL EXAMINATION VITAL SIGNS: I reviewed this patient's vital signs. HEENT: Noncontributory. LUNGS: Clear to auscultation. HEART: Regular rhythm. ABDOMEN: Soft with negative tenderness in the area of the left paraumbilical and left lower quadrant. OVERALL ASSESSMENT: A 22-year-old black male with no significant gastrointestinal history, here with a diverticulitis-type scenario, improved with antibiotic therapy. Otherwise, the patient to follow up with his private medical doctor's office within one week, utilize the antibiotic regimen as prescribed by Dr. Womack. The patient probably will need colonoscopy at a later date, probably six to eight weeks after completion of antibiotics. We will sign off the case today. Edouard Stewart DO
== END 2018-01-09 09:16 | disposition home or self-care (01) | DRG 392 ==
LOC: ED 17:10 → ERH 20:28 → 5RSO 22:36 → OBSVTOIN 01-06 15:20
PROVIDERS: ADMIT Internal Medicine; ATTEND Internal Medicine
DX: K57.32 Diverticulitis of large intestine without perforation or abscess without bleeding (principal); R65.10 Systemic inflammatory response syndrome (SIRS) of non-infectious origin without acute organ dysfunction; K52.9 Noninfective gastroenteritis and colitis, unspecified; K29.70 Gastritis, unspecified, without bleeding; D50.9 Iron deficiency anemia, unspecified; E87.6 Hypokalemia; K63.89 Other specified diseases of intestine; R82.4 Acetonuria; F10.20 Alcohol dependence, uncomplicated; F12.20 Cannabis dependence, uncomplicated; F17.210 Nicotine dependence, cigarettes, uncomplicated; R31.29 Other microscopic hematuria; R73.9 Hyperglycemia, unspecified

== ENCOUNTER 2018-01-10 04:15 | Emergency (ER) | payer BC ==
[2018-01-10 04:39] VITALS: BP 156/69; PULSE 69; TEMP 97.7; O2SAT 99; BMI 20.7
--- NOTE | 2018-01-10 04:41 | ED PDOC ---
Arrival/HPI - General Time Seen by Provider: 01/10/18 04:16 Historian: Patient - History of Present Illness Narrative History of Present Illness (Text): 01/10/18 04:35 Ravinder Zhao is a 22 year old male who presents to the Emergency department complaining of intermittent lower back pain for the past few months, worsening over the past few days. Patient denies any recent trauma/injury. Patient was recently admitted for diverticulitis and notes all that pain has resolved, but presented for lower back pain he has been experiencing since September. 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 Patient states his PMD suggested XRs. Patient denies any saddle paresthesia, lower extremity weakness, bowel/urinary incontinence, headache, dizziness, neck pain, or any other complaints. Symptom Onset: Gradual Symptom Course: Intermittent Activities at Onset: Light Context: Home Past Medical History - Provider Review Nursing Documentation Reviewed: Yes - Infectious Disease Hx of Infectious Diseases: None - Cardiac Hx Cardiac Disorders: No - Pulmonary Hx Respiratory Disorders: No - Neurological Hx Neurological Disorder: No - HEENT Hx HEENT Disorder: No - Renal Hx Renal Disorder: No - Endocrine/Metabolic Hx Endocrine Disorders: No - Hematological/Oncological Hx Blood Disorders: No - Integumentary Hx Dermatological Disorder: Yes Other/Comment: Abcess removed from R arm - Musculoskeletal/Rheumatological Hx Musculoskeletal Disorders: No Hx Falls: No - Gastrointestinal Hx Gastrointestinal Disorders: No - Genitourinary/Gynecological Hx Genitourinary Disorders: No - Psychiatric Hx Psychophysiologic Disorder: No Hx Substance Use: Yes - Surgical History Other/Comment: Abcess removal from R arm - Anesthesia Hx Anesthesia: Yes Hx Anesthesia Reactions: No Hx Malignant Hyperthermia: No Family/Social History - Physician Review Nursing Documentation Reviewed: Yes Family/Social History: Unknown Family HX Smoking Status: Light Smoker < 10 Cigarettes Daily Hx Alcohol Use: Yes Hx Substance Use: Yes Substance used: marijuana; percocet Allergies/Home Meds Allergies/Adverse Reactions: Allergies No Known Allergies Allergy (Verified 01/10/18 04:29) Review of Systems - Physician Review All systems were reviewed & negative as marked: Yes - Review of Systems Constitutional: Normal. absent: Fevers Eyes: Normal ENT: Normal Respiratory: Normal. absent: SOB, Cough Cardiovascular: Normal. absent: Chest Pain Gastrointestinal: Normal. absent: Abdominal Pain, Diarrhea, Nausea, Vomiting Genitourinary Male: Normal. absent: Dysuria, Frequency, Hematuria Musculoskeletal: Back Pain. absent: Neck Pain Skin: Normal. absent: Rash Neurological: Normal. absent: Headache, Dizziness, Focal Weakness Endocrine: Normal Hemo/Lymphatic: Normal Psychiatric: Normal Physical Exam Vital Signs Reviewed: Yes Vital Signs Temp Pulse BP Pulse Ox 01/10/18 04:30 97.7 F 69 156/69 H 99 Temperature: Afebrile Blood Pressure: Normal Pulse: Regular Respiratory Rate: Normal Appearance: Positive for: Well-Appearing, Non-Toxic, Comfortable Pain Distress: None Mental Status: Positive for: Alert and Oriented X 3 - Systems Exam Head: Present: Atraumatic, Normocephalic Pupils: Present: PERRL Extroacular Muscles: Present: EOMI Conjunctiva: Present: Normal Mouth: Present: Moist Mucous Membranes Neck: Present: Normal Range of Motion. No: Meningeal Signs, MIDLINE TENDERNESS , Paraspinal Tenderness Respiratory/Chest: Present: Clear to Auscultation, Good Air Exchange. No: Respiratory Distress, Accessory Muscle Use Cardiovascular: Present: Regular Rate and Rhythm, Normal S1, S2. No: Murmurs Abdomen: No: Tenderness, Distention, Peritoneal Signs Back: Present: Paraspinal Tenderness (Paralumbar tenderness), Pain with Leg Raise Upper Extremity: Present: Normal Inspection. No: Cyanosis, Edema Lower Extremity: Present: Normal Inspection. No: Edema Neurological: Present: GCS=15, CN II-XII Intact, Speech Normal Skin: Present: Warm, Dry, Normal Color. No: Rashes Psychiatric: Present: Alert, Oriented x 3, Normal Insight, Normal Concentration Medical Decision Making ED Course and Treatment: 01/10/18 04:35 Impression: 22 year old male complaining of lower back pain since September. Plan: -- Toradol -- Flexeril -- Reassess and disposition Progress Notes: Pt refused XRs. Pt with paralumbar tenderness, no saddle parasthesia, no bowel/ urinary incontinence, no urinary complaints. - Medication Orders Current Medication Orders: Discontinued Medications Cyclobenzaprine HCl (Flexeril) 10 mg PO STAT STA Stop: 01/10/18 04:35 Last Admin: 01/10/18 04:47 Dose: 10 mg Ketorolac Tromethamine (Toradol) 30 mg IM STAT STA Stop: 01/10/18 04:35 Last Admin: 01/10/18 04:49 Dose: 30 mg MAR Pain Assessment Document 01/10/18 04:49 RG (Rec: 01/10/18 04:50 RG [id number]) Pain Reassessment Is this a pain reassessment? Yes Sleep Is patient sleeping during reassessment? No Presence of Pain Presence of Pain Yes Pain Scale Used Pain Scale Used Numeric Location Upper or Lower Lower Pain Location Body Site Back Description Description Constant IM Administration Charges Document 01/10/18 04:49 RG (Rec: 01/10/18 04:50 RG [id number]) Injection Site MAR Injection Site Right Deltoid Charges for Administration # of IM Administrations 1 - Scribe Statement The provider has reviewed the documentation as recorded by the Hi Morales Provider Scribe Attestation: All medical record entries made by the Scribe were at my direction and personally dictated by me. I have reviewed the chart and agree that the record accurately reflects my personal performance of the history, physical exam, medical decision making, and the department course for this patient. I have also personally directed, reviewed, and agree with the discharge instructions and disposition. Disposition/Present on Arrival - Present on Arrival Any Indicators Present on Arrival: No History of DVT/PE: No History of Uncontrolled Diabetes: No Urinary Catheter: No History Surgical Site Infection Following: None - Disposition Have Diagnosis and Disposition been Completed?: Yes Diagnosis: Back pain Disposition: HOME/ ROUTINE Disposition Time: 07:00 Condition: STABLE Discharge Instructions (ExitCare): Low Back Pain (DC) Additional Instructions: please followup with your doctor. return to er with worsening symptoms or concerns. Prescriptions: Cyclobenzaprine [Cyclobenzaprine HCl] 10 mg PO DAILY PRN #10 tab PRN Reason: Muscle Spasm Naproxen 500 mg PO BID PRN #14 tablet PRN Reason: Pain, Mild (1-3) Referrals: Artemio Gold MD [Staff Provider] - Follow up with primary Forms: [employer] (Mauritanian)
== END 2018-01-10 05:10 | disposition home or self-care (01) ==
LOC: ED 04:15
DX: M54.5 Low back pain (principal); F17.210 Nicotine dependence, cigarettes, uncomplicated
CPT/HCPCS: 96372; 99283; J1885

== ENCOUNTER 2018-02-27 09:39 | Observation (INO) | payer BC ==
--- NOTE | 2018-02-27 10:00 | ED PDOC ---
Arrival/HPI - General Time Seen by Provider: 02/27/18 09:45 Historian: Patient - History of Present Illness Narrative History of Present Illness (Text): 02/27/18 09:57 Ravinder Zhao is a 22 year old male, whose past medical history includes recent admission for abdominal pain and "colitis", who presents to the emergency department complaining of abdominal pain, chills, nausea, vomiting for the past 3 days. Patient states that pain is persistent and worsened overnight. Pain is crampy, upper abdomen. Denies any hematemesis. Denies bloody or dark stool. Patient notes that he cannot tolerate any oral intake over the past day "I throw up whenever I try to drink or eat something". Denies lightheadedness or dizziness. Reports feeling shaky over past 1-2 days. Denies recent travel. Denies recent surgeries. Denies recent antibiotic usage. Time/Duration: < week Symptom Onset: Gradual Symptom Course: Unchanged Activities at Onset: Light Context: Home Past Medical History - Provider Review Nursing Documentation Reviewed: Yes - Infectious Disease Hx of Infectious Diseases: None - Cardiac Hx Cardiac Disorders: No - Pulmonary Hx Respiratory Disorders: No - Neurological Hx Neurological Disorder: No - HEENT Hx HEENT Disorder: No - Renal Hx Renal Disorder: No - Endocrine/Metabolic Hx Endocrine Disorders: No - Hematological/Oncological Hx Blood Disorders: No - Integumentary Hx Dermatological Disorder: Yes Other/Comment: Abcess removed from R arm - Musculoskeletal/Rheumatological Hx Musculoskeletal Disorders: No Hx Falls: No - Gastrointestinal Hx Gastrointestinal Disorders: No - Genitourinary/Gynecological Hx Genitourinary Disorders: No - Psychiatric Hx Psychophysiologic Disorder: No Hx Substance Use: Yes - Surgical History Other/Comment: Abcess removal from R arm - Anesthesia Hx Anesthesia: Yes Hx Anesthesia Reactions: No Hx Malignant Hyperthermia: No Family/Social History - Physician Review Nursing Documentation Reviewed: Yes Family/Social History: No Known Family HX Smoking Status: Light Smoker < 10 Cigarettes Daily Hx Alcohol Use: Yes Hx Substance Use: Yes Substance used: marijuana; percocet Allergies/Home Meds Allergies/Adverse Reactions: Allergies No Known Allergies Allergy (Verified 02/27/18 10:03) Review of Systems - Review of Systems Constitutional: Fatigue, Other (shaky yesterday). absent: Fevers, Night Sweats Eyes: absent: Vision Changes ENT: absent: Hearing Changes Respiratory: absent: SOB, Cough Cardiovascular: absent: Chest Pain Gastrointestinal: Abdominal Pain, Constipation (no bowel movement for 2 days), Nausea, Vomiting, Appetite Changes, Food Intolerance. absent: Diarrhea, Hematochezia, Hematemesis Genitourinary Male: absent: Dysuria, Urinary Output Changes Musculoskeletal: absent: Arthralgias, Joint Swelling Skin: absent: Rash, Pruritis Neurological: absent: Headache, Dizziness, Focal Weakness Endocrine: absent: Diaphoresis Hemo/Lymphatic: absent: Adenopathy Psychiatric: absent: Anxiety, Depression Physical Exam - Physical Exam Narrative Physical Exam (Text): Head: Atraumatic. Normocephalic. Eyes: PERRL. EOMI. Conjunctivae are not pale. ENT: Mucous membranes are dry. Oropharynx is clear and symmetric. Neck: Supple. Full ROM. No JVD. No lymphadenopathy. Cardiovascular: Regular rate. Regular rhythm. Systolic murmur. Distal pulses are 2+ and symmetric. Pulmonary/Chest: No evidence of respiratory distress. Clear to auscultation bilaterally. No wheezing, rales or rhonchi. Abdominal: Focal tenderness to epigastric and LUQ of abdomen. No rebound, guarding, or rigidity. No organomegaly. No pulsatile masses. Back: No CVA tenderness. Extremities: No edema. No cyanosis. No clubbing. Full range of motion in all extremities. No calf tenderness. Skin: Skin is warm and dry. No petechiae. No purpura. Neurological: Alert, awake, and oriented to person, place, time, and situation. Normal speech. No tremors. Motor and sensory exam intact. No meningeal signs. Psychiatric: Good eye contact. Normal interaction, affect, and behavior. Denies depression or suicidal ideation. Vital Signs Reviewed: Yes Vital Signs Temp Pulse Resp BP Pulse Ox 02/27/18 16:00 70 16 123/79 02/27/18 14:02 73 16 120/74 02/27/18 12:13 68 18 122/83 02/27/18 10:17 97.7 F 02/27/18 10:04 67 18 109/79 100 Appearance: Positive for: Uncomfortable Pain Distress: Moderate Medical Decision Making ED Course and Treatment: 02/27/18 10:03 Impression: 22 year old male complaining of abdominal pain, chills, nausea, and vomiting for the past 3 days. Differential Diagnosis included but are not limited to: Diverticulitis vs. colitis vs. inflammatory bowel disease Plan: -- EKG -- Abdomen and Pelvis CT with IV contrast -- VBG -- Urinalysis -- Labs -- Dilaudid, Pepcid, Zofran, and IV fluids -- Reassess and disposition Prior Visits: Notes and results from previous visits were reviewed. Patient was last seen in the emergency department on 01/10/18 intermittent lower back pain. Patient was discharged home. Progress Notes: I reviewed patient's recent admission, as well as past CT abdomen results and consultation from tool shaper setup operator Dr. Stewart. Patient on initial exam is diaphoretic, diffuse upper and left sided abdominal pain. Not febrile. Denies chest pain or shortness of breath. EKG ordered for initial assessment of electrolyte abnormality. EKG reveals normal sinus rhythm rate of 60 with voltage criteria for left ventricular hypertrophy. He denies any chest pain or shortness of breath. There is no prior EKG for comparison. Patient informs me that he was "told I had a heart mumur when I was younger" and that he saw a sausage smoker "a few years ago". I advised him of abnormal EKG , although currently do not feel symptoms are cardiac related as he presents with palpable abdominal pain or nausea. 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 He expresses understanding of this. Patient initially denies drug or alcohol abuse. Given his severe pain on exam, IV fluids, dilaudid and CT ordered. CT results reviewed, unremarkable. Patient on re-exam still nauseous and with persistent upper abdominal pain. Additional zofran, iv fluids given with persistent nausea but improved pain as of 17:14. Ultrasound unremarkable. On re-exam, patient admits that "I was taking Percocet twice a day since September" and that he "stopped using Percocet 3 days ago." He denies overdose of medication. Tylenol level ordered, although LFTs currently unremarkable. CPK mildly elevated. IV fluids continued. He is urinating without difficulty. Patient's case reviewed with his PMD Dr. Womack. At this time, will continue symptomatic treatment in Emergency department, reassess. Currently not tremulous or tachycardic. 02/27/18 17:08 02/27/18 19:10 On re-evaluation, abdominal pain resolved. No chest pain, no shortness of breath. BP stable. Not hypotensive. Stressed risks of alcohol and drug abuse. Patient denies suicidal or homicidal ideation. Will d/c with Fe, advised f/u with Dr. Womack tomorrow. Informed of need for cardiology follow-up, although no chest pain or sob or leg edema. 02/27/18 19:17 Labs reviewed with patient. Advised follow-up of liver enzymes and bilirubin. Patient comfortable, denies overdose. - Lab Interpretations Lab Results: 02/27/18 10:30 02/27/18 10:30 Lab Results 02/27/18 18:20: Alcohol, Quantitative < 10 02/27/18 18:20: Salicylates < 1 L, Acetaminophen < 10.0 L 02/27/18 14:00: Salicylates < 1 L 02/27/18 14:00: Urine Opiates Screen Positive H, Urine Methadone Screen Negative , Ur Barbiturates Screen Negative, Ur Phencyclidine Scrn Negative, Ur Amphetamines Screen Negative, U Benzodiazepines Scrn Negative, U Oth Cocaine Metabols Negative, U Cannabinoids Screen Positive H 02/27/18 14:00: Magnesium 2.1, Lactate Dehydrogenase 500, Total Creatine Kinase 577 H, CK-MB (CK-2) 2.8, CK-MB (CK-2) % Cancelled, Troponin I < 0.01, Amylase 109, Lipase 53 02/27/18 14:00: Urine Color Yellow, Urine Appearance Clear, Urine pH 7.0, Ur Specific [place] <= 1.005, Urine Protein Trace H, Urine Glucose (UA) Negative, Urine Ketones 40 H, Urine Blood Negative, Urine Nitrate Negative, Urine Bilirubin Negative, Urine Urobilinogen 1.0 H, Ur Leukocyte Esterase Negative, Urine RBC Negative, Urine WBC 0 - 2, Ur Epithelial Cells None, Urine Bacteria Few 02/27/18 10:30: Sodium 146, Chloride 104, Potassium 4.0, Carbon Dioxide 25, Anion Gap 20, BUN 11, Creatinine 0.8, Est GFR ( Amer) > 60, Est GFR (Non- Af Amer) > 60, Random Glucose 97, Calcium 10.3, Total Bilirubin 1.4 H, AST 59 D , ALT 80 H, Alkaline Phosphatase 81, Total Protein 9.2 H, Albumin 5.3 H, Globulin 3.9, Albumin/Globulin Ratio 1.4 02/27/18 10:30: pO2 25 L, VBG pH 7.38, VBG pCO2 46.0, VBG HCO3 27.2, VBG Total CO2 28.6 H, VBG O2 Sat (Calc) 53.6, VBG Base Excess 1.5, VBG Potassium 3.9, Sodium 138.0, Chloride 105.0, Glucose 100, Lactate 1.1, FiO2 21.0, Venous Blood Potassium 3.9 02/27/18 10:30: PT 12.1, INR 1.05, APTT 39.0 H 02/27/18 10:30: WBC 7.0, RBC 5.95, Hgb 17.2 D, Hct 46.2, MCV 77.6 L, MCH 28.9, MCHC 37.2 H, RDW 13.7, Plt Count 285, MPV 10.0, Gran % 67.7, Lymph % (Auto) 24.9 , Citrus % (Auto) 4.5, Eos % (Auto) 2.3, Baso % (Auto) 0.6, Gran # 4.77, Lymph # ( Auto) 1.8, Citrus # (Auto) 0.3, Eos # (Auto) 0.2, Baso # (Auto) 0.04 I have reviewed the lab results: Yes - RAD Interpretation Radiology Orders: 02/27/18 10:05 ABD & PELVIS IV CONTRAST ONLY [CT] Stat 02/27/18 13:36 CHEST PORTABLE [RAD] Stat 02/27/18 14:23 ABDOMEN COMPLETE [US] Stat - Medication Orders Current Medication Orders: Discontinued Medications Famotidine (Pepcid) 20 mg IVP STAT STA Stop: 02/27/18 10:06 Last Admin: 02/27/18 10:24 Dose: 20 mg IVP Administration Document 02/27/18 10:24 JADEN (Rec: 02/27/18 10:24 JADEN [id number]) Charges for Administration # of IVP Administrations 1 Hydromorphone HCl (Dilaudid) 1 mg IVP STAT STA Stop: 02/27/18 10:06 Last Admin: 02/27/18 10:21 Dose: 1 mg MAR Pain Assessment Document 02/27/18 10:21 JADEN (Rec: 02/27/18 10:21 JADEN [id number]) Pain Reassessment Is this a pain reassessment? Yes Presence of Pain Presence of Pain Yes Pain Scale Used Pain Scale Used Numeric Location Pain Location Body Site Abdomen Description Description Cramping Intensity of Pain at present 7 Pain Behavior Moaning Guarding IVP Administration Document 02/27/18 10:21 JADEN (Rec: 02/27/18 10:21 JADEN [id number]) Charges for Administration # of IVP Administrations 1 Hydromorphone HCl (Dilaudid) 1 mg IVP STAT STA Stop: 02/27/18 14:23 Last Admin: 02/27/18 15:12 Dose: 1 mg MAR Pain Assessment Document 02/27/18 15:12 JADEN (Rec: 02/27/18 15:13 JADEN [id number]) Pain Reassessment Is this a pain reassessment? Yes Presence of Pain Presence of Pain Yes Pain Scale Used Pain Scale Used Numeric Location Pain Location Body Site Abdomen Description Description Cramping Intensity of Pain at present 8 IVP Administration Document 02/27/18 15:12 JADEN (Rec: 02/27/18 15:[id number]) Charges for Administration # of IVP Administrations 1 Re-Assess: MAR Pain Assessment Document 02/27/18 16:02 JADEN (Rec: 02/27/18 16:02 JADEN [id number]) Pain Reassessment Is this a pain reassessment? Yes Presence of Pain Presence of Pain Yes Location Pain Location Body Site Abdomen Description Description Cramping Intensity of Pain at present 4 Sodium Chloride (Sodium Chloride 0.9%) 1,000 mls @ 1,000 mls/hr IV .Q1H STA Stop: 02/27/18 11:04 Last Admin: 02/27/18 10:20 Dose: 1,000 mls/hr eMAR Start Stop Document 02/27/18 10:20 JADEN (Rec: 02/27/18 10:21 JADEN [id number]) Intravenous Solution Start Date 02/27/18 Start Time 10:20 End Date 02/27/18 End time 11:20 Total Infusion Time 60 Sodium Chloride (Sodium Chloride 0.9%) 1,000 mls @ 1,000 mls/hr IV .Q1H STA Stop: 02/27/18 12:40 Last Admin: 02/27/18 12:04 Dose: 1,000 mls/hr eMAR Start Stop Document 02/27/18 12:04 JADEN (Rec: 02/27/18 12:08 JADEN [id number]) Intravenous Solution Start Date 02/27/18 Start Time 12:04 End Date 02/27/18 End time 13:04 Total Infusion Time 60 Sodium Chloride (Sodium Chloride 0.9%) 1,000 mls @ 1,000 mls/hr IV .Q1H STA Stop: 02/27/18 14:35 Last Admin: 02/27/18 14:02 Dose: 1,000 mls/hr eMAR Start Stop Document 02/27/18 14:02 JADEN (Rec: 02/27/18 14:02 [id number] Intravenous Solution Start Date 02/27/18 Start Time 14:02 End Date 02/27/18 End time 15:02 Total Infusion Time 60 Ondansetron HCl (Zofran Inj) 4 mg IVP ONCE ONE Stop: 02/27/18 10:06 Last Admin: 02/27/18 10:23 Dose: 4 mg IVP Administration Document 02/27/18 10:23 JADEN (Rec: 02/27/18 10:23 [id number]) Charges for Administration # of IVP Administrations 1 Ondansetron HCl (Zofran Inj) 4 mg IVP ONCE ONE Stop: 02/27/18 11:42 Last Admin: 02/27/18 12:04 Dose: 4 mg IVP Administration Document 02/27/18 12:04 JADEN (Rec: 02/27/18 12:04 [id number][facility] Charges for Administration # of IVP Administrations 1 Ondansetron HCl (Zofran Inj) 4 mg IVP ONCE ONE Stop: 02/27/18 17:00 Last Admin: 02/27/18 18:19 Dose: 4 mg IVP Administration Document 02/27/18 18:19 JADEN (Rec: 02/27/18 18:19 [id number][facility] Charges for Administration # of IVP Administrations 1 - Scribe Statement The provider has reviewed the documentation as recorded by the Scribe Ivy Dilip Provider Scribe Attestation: All medical record entries made by the iH were at my direction and personally dictated by me. I have reviewed the chart and agree that the record accurately reflects my personal performance of the history, physical exam, medical decision making, and the department course for this patient. I have also personally directed, reviewed, and agree with the discharge instructions and disposition. Disposition/Present on Arrival - Present on Arrival Any Indicators Present on Arrival: No History of DVT/PE: No History of Uncontrolled Diabetes: No Urinary Catheter: No History Surgical Site Infection Following: None - Disposition Have Diagnosis and Disposition been Completed?: Yes Diagnosis: Vomiting, Abdominal pain, Gastritis Disposition: HOME/ ROUTINE Disposition Time: 19:12 Patient Plan: Discharge Patient Problems: Current Active Problems Problem Status Onset Abdominal pain Acute Gastritis Acute Vomiting Acute Condition: GOOD Discharge Instructions (ExitCare): Gastritis (DC), Acute Abdomen (Belly Pain), Adult (DC) Additional Instructions: Do not take Percocet or drink alcohol or use any recreational drugs inappropriately, as we discussed. For any fevers, any chest pain, any shortness of breath, any abdominal pain, any bloody urine or stool, any return of vomiting or nausea, any shakiness, any chills, any persistent or worsening of symptoms, get rechecked. Follow-up with Dr. Womack tomorrow. I have discussed your EKG results with you. If you have any chest pain, shortness of breath, palpitations, dizziness, get rechecked. You must follow-up with a sausage smoker for clearance for any strenuous activity or sports. Prescriptions: Famotidine [Pepcid] 20 mg PO DAILY #7 tab Referrals: Ron Womack MD [Family Provider] - Follow up with primary Forms: WORK NOTE
[2018-02-27 10:03] VITALS: BMI 21.7
[2018-02-27] MEDS ORDERED: Sodium Chloride 0.9% 1,000 ML IV STA ×3 (10:05→13:36)
[2018-02-27] MEDS ORDERED: HYDROmorphone 1 mg/ml ISec IVP STA ×2 (10:05→14:22)
[2018-02-27] MEDS ORDERED: Iohexol 350 MG/100 ML VIAL ONE (10:27)
[2018-02-27 10:47] LABS: VENOUS BLOOD GAS BASE EXCESS 1.5 mmol/L (0.0-2.0); VENOUS BLOOD GAS PO2 25 mm/Hg (30-55); VENOUS BLOOD PH 7.38 (7.32-7.43)
[2018-02-27 10:53] LABS: BASO # 0.04 K/mm3 (0.0-2.0); BASO % 0.6 % (0.0-3.0); EOS # 0.2 (0.0-0.7); EOS % 2.3 % (1.5-5.0); GRAN # 4.77 (1.4-6.5); GRAN % 67.7 % (50.0-68.0); HEMOGLOBIN 17.2 g/dL (14.0-18.0); LYMPH # 1.8 (1.2-3.4); LYMPH % 24.9 % (22.0-35.0); MEAN CELL VOLUME 77.6 fl (80.0-105.0); MEAN CORPUSCULAR HEMOGLOBIN 28.9 pg (25.0-35.0); MEAN CORPUSCULAR HGB CONC 37.2 g/dl (31.0-37.0); MONO # 0.3 (0.1-0.6); MONO % 4.5 % (1.0-6.0); RBC 5.95 10^6/uL (3.5-6.1); RED CELL DISTRIBUTION WIDTH 13.7 % (11.5-14.5)
[2018-02-27 10:59] LABS: ALB/GLOB RATIO 1.4 (1.1-1.8); ALBUMIN 5.3 g/dL (3.0-4.8); ALT/SGPT 80 U/L (7-56); AST/SGOT 59 U/L (17-59); BLOOD UREA NITROGEN 11 mg/dL (7-21); CALCIUM 10.3 mg/dL (8.4-10.5); GFR AFRICAN-AMERICAN > 60; GFR NON-AFRICAN AMERICAN > 60
[2018-02-27 11:10] LABS: INR 1.05 (0.93-1.08); PROTHROMBIN TIME 12.1 SECONDS (9.4-12.5)
--- NOTE | 2018-02-27 12:37 | CT ---
PROCEDURE: CT Abdomen and Pelvis with contrast HISTORY: severe left sided abdominal pain COMPARISON: None. TECHNIQUE: Contrast dose: 100 cc of Omni 350 Radiation dose: Total exam DLP = 225 mGy-cm. This CT exam was performed using one or more of the following dose reduction techniques: Automated exposure control, adjustment of the mA and/or kV according to patient size, and/or use of iterative reconstruction technique. There is a small amount of intra-abdominal fat which limits the evaluation of inflammatory changes. FINDINGS: LOWER THORAX: Unremarkable. LIVER: Unremarkable. No gross lesion or ductal dilatation. GALLBLADDER AND BILE DUCTS: Unremarkable. PANCREAS: Unremarkable. No gross lesion or ductal dilatation. SPLEEN: Unremarkable. ADRENALS: Unremarkable. No mass. KIDNEYS AND URETERS: Unremarkable. No hydronephrosis. No solid mass. VASCULATURE: Unremarkable. No aortic aneurysm. BOWEL: Unremarkable. No obstruction. No gross mural thickening. APPENDIX: Normal appendix. PERITONEUM: Unremarkable. No free fluid. No free air. LYMPH NODES: Unremarkable. No enlarged lymph nodes. BLADDER: Unremarkable. REPRODUCTIVE: Unremarkable. BONES: No acute fracture. OTHER FINDINGS: None. IMPRESSION: No acute intra-abdominal findings
--- NOTE | 2018-02-27 12:55 | CARD ---
APPROVED REPORT EKG Measurement Heart [id number] ID [id number] <Conclusion> Normal sinus rhythm Voltage criteria for left ventricular hypertrophy Abnormal ECG
[2018-02-27 14:12] LABS: AMYLASE 109 U/L (35-125); LIPASE 53 U/L (23-300)
[2018-02-27 14:24] LABS: TROPONIN I < 0.01 ng/mL
[2018-02-27 14:30] LABS: CK-MB 2.8 ng/mL (0.0-3.6)
[2018-02-27 14:32] LABS: URINE BILIRUBIN NEGATIVE (NEGATIVE); URINE BLOOD NEGATIVE (NEGATIVE); URINE GLUCOSE (UA) NEGATIVE (NEGATIVE); URINE LEUKOCYTE ESTERASE NEGATIVE Leu/uL (NEGATIVE); URINE PROTEIN TRACE mg/dL (<30 mg/dL)
[2018-02-27 14:39] LABS: URINE APPEARANCE CLEAR (CLEAR); URINE COLOR YELLOW (YELLOW)
[2018-02-27 14:42] LABS: URINE RBC NEGATIVE /hpf (0-2)
[2018-02-27 14:43] LABS: URINE BACTERIA FEW (NEG); URINE WBC 0 - 2 /hpf (0-6)
[2018-02-27 14:53] LABS: BARBITURATES, UR NEGATIVE (NEGATIVE); BENZODIAZEPINES, UR NEGATIVE (NEGATIVE); OPIATES, UR POSITIVE (NEGATIVE); PHENCYCLIDINE, UR NEGATIVE (NEGATIVE)
--- NOTE | 2018-02-27 14:55 | RAD ---
HISTORY: epigastric pain COMPARISON: 01/06/2018 FINDINGS: LUNGS: No active pulmonary disease. PLEURA: No significant pleural effusion identified, no pneumothorax apparent. CARDIOVASCULAR: Normal. OSSEOUS STRUCTURES: No significant abnormalities. VISUALIZED UPPER ABDOMEN: Normal. OTHER FINDINGS: None. IMPRESSION: No active disease.
--- NOTE | 2018-02-27 15:59 | US ---
HISTORY: upper abdominal pain COMPARISON: None. TECHNIQUE: Sonographic evaluation of the abdomen. FINDINGS: LIVER: Measures 16.1 cm. Normal echogenicity of the liver parenchyma. No mass. No intrahepatic bile duct dilatation. GALLBLADDER: Unremarkable. No gallstones. COMMON BILE DUCT: Measures 3.3 mm. No stones. No dilatation. PANCREAS: Unremarkable as visualized. No mass. No ductal dilatation. RIGHT KIDNEY: Measures 10.9 x 3.9 x 6.2cm. Normal echogenicity. No calculus, mass, or hydronephrosis. LEFT KIDNEY: Measures 11.2 x 5.6 x 6.8cm. Normal echogenicity. No calculus, mass, or hydronephrosis. SPLEEN: Normal in size and contour. No mass. 0.6 x 3.5 x 3.7 cm AORTA: No aneurysmal dilatation. IVC: Unremarkable. OTHER FINDINGS: None. IMPRESSION: Unremarkable abdominal sonogram.
[2018-02-27 18:48] LABS: ACETAMINOPHEN < 10.0 ug/ml (10.0-20.0); SALICYLATE < 1 mg/dL (2.0-20.0)
[2018-02-27] MEDS: Lactated Ringer's 1,000 ML IV SCH (21:00)
--- NOTE | 2018-02-27 21:28 | CP.PCM.HP ---
<Oracio Vasquez - Last Filed: 02/27/18 22:03> History of Present Illness - History of Present Illness History of Present Illness: 22 year old male with a past medical history of opiod use disorder, alcohol use disorder, marijuana, and reported history of colitis who presents with 3 days nausea, heaves, runny nose, and constipation after he stopped taking Oxycodone 30 mg twice a day. At 3 AM today he developed epigastric pain and intractable nausea and vomiting which prompted him to come to [facility]. He reports the vomit as yellowish, non-bloody. He reports the only alleviating factors for his symptoms were the pain medication he received in the ED. 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 He denies fever, chills, chest pain, hematemesis, diarrhea, recentt trauma. He admits to drinking two shots of liquor a day, smoking two black and milds daily, and smoking marijuana 3 times a day. Otherwise, 12 point review of system is negative. PMH: Opiod use disorder Past Surgical History: right arm abscess removed at age of 5 Allergies: Denies Social: works for [employer], smokes Marijuana three times daily, smokes two black and milds daily, two shots of alcohol daily, using Oxycodone 30 mg twice a day since September of this year; denies PMD: Dr. Womack Present on Admission - Present on Admission Any Indicators Present on Admission: No Review of Systems - Review of Systems All systems: reviewed and no additional remarkable complaints except (as per HPI ) Past Patient History - Infectious Disease Hx of Infectious Diseases: None - Past Social History Smoking Status: Light Smoker < 10 Cigarettes Daily - CARDIAC Hx Cardiac Disorders: No - PULMONARY Hx Respiratory Disorders: No - NEUROLOGICAL Hx Neurological Disorder: No - HEENT Hx HEENT Problems: No - RENAL Hx Chronic Kidney Disease: No - ENDOCRINE/METABOLIC Hx Endocrine Disorders: No - HEMATOLOGICAL/ONCOLOGICAL Hx Blood Disorders: No - INTEGUMENTARY Hx Dermatological Problems: Yes Other/Comment: Abcess removed from R arm - MUSCULOSKELETAL/RHEUMATOLOGICAL Hx Falls: No - GASTROINTESTINAL Hx Gastrointestinal Disorders: Yes (colitis) - GENITOURINARY/GYNECOLOGICAL Hx Genitourinary Disorders: No - PSYCHIATRIC Hx Substance Use: Yes (jose mariafátima) - SURGICAL HISTORY Hx Surgeries: Yes Other/Comment: Abcess removal from R arm - ANESTHESIA Hx Anesthesia: Yes Hx Anesthesia Reactions: No Hx Malignant Hyperthermia: No Meds Allergies/Adverse Reactions: Allergies Allergy/AdvReac Type Severity Reaction Status Date / Time No Known Allergies Allergy Verified 02/27/18 10:03 Physical Exam - Constitutional Appears: Non-toxic - Head Exam Head Exam: ATRAUMATIC, NORMOCEPHALIC - Eye Exam Eye Exam: EOMI, Normal appearance - Neck Exam Additional comments: darker pigmented spots on anterior neck and chest - Respiratory Exam Respiratory Exam: Clear to Auscultation Bilateral, NORMAL BREATHING PATTERN. absent: Accessory Muscle Use - Cardiovascular Exam Cardiovascular Exam: RRR, +S1, +S2 - GI/Abdominal Exam GI & Abdominal Exam: Tenderness (epigastrium) - Extremities Exam Extremities exam: Positive for: normal inspection. Negative for: calf tenderness - Back Exam Back exam: NORMAL INSPECTION. absent: CVA tenderness (L), CVA tenderness (R) - Neurological Exam Neurological exam: Alert, Oriented x3 - Psychiatric Exam Psychiatric exam: Normal Affect, Normal Mood - Skin Skin Exam: Dry, Intact, Normal Color, Warm Results - Vital Signs Recent Vital Signs: Last Vital Signs Temp 97.5 F L 02/27/18 21:05 Pulse 52 L 02/27/18 21:05 Resp 16 02/27/18 21:05 BP 127/83 02/27/18 21:05 Pulse Ox 100 02/27/18 20:30 - Labs Result Diagrams: 02/27/18 10:30 02/27/18 10:30 Assessment & Plan - Assessment and Plan (Free Text) Assessment: 22 year old male with a past medical history of opioid use disorder who presents with epigastric pain, nausea, and vomiting after discontinuing his opioids. Plan: 1) Abdominal pain, nausea, and vomiting - CT of abdomen and pelvis showed no acute intra-abdominal findings - Abdominal US negative for any acute findings - GI consulted, Dr. Lowe - Urea breath test: important to note the sensitivity of this test may be affected by the use of PPIs - Zofran 4 mg q4h PRN for nausea - Reglan 5 mg q6h [facility] - Liquid diet - Chest X- ray shows NAD - EKG reads as NSR with LVH by voltage criteria 2) Drug withdrawal: narcotics and alcohol - [facility] protocol - Seizure precautions - Ativan 1 mg q4h PRN for alcohol withdrawal symptoms - fall precautions - UDS positive for Cannibinoids and Opioids - Last drink of Alcohol was on Monday 3) GI/DVT prophylaxis: - Protonix 40 mg q12h [facility] - SCD Case reviewed and discussed with attending physician, Dr. Womack - Date & Time Date: 02/27/18 Time: 22:06 <Ron Womack - Last Filed: 02/28/18 20:17> Results - Vital Signs Recent Vital Signs: Last Vital Signs Temp 98.2 F 02/28/18 19:00 Pulse 74 02/28/18 19:00 Resp 16 02/28/18 19:00 BP 114/80 02/28/18 19:00 Pulse Ox 100 02/28/18 19:00 - Labs Result Diagrams: 02/28/18 06:35 02/28/18 06:35 Labs: Laboratory Results - last 24 hr 02/27/18 02/28/18 02/28/18 22:07 06:35 06:35 WBC 8.4 RBC 5.21 Hgb 14.5 D Hct 40.2 L MCV 77.2 L MCH 27.8 MCHC 36.1 RDW 13.7 Plt Count 251 MPV 9.7 Gran % 63.0 Lymph % (Auto) 29.9 [place] % (Auto) 4.7 Eos % (Auto) 2.0 Baso % (Auto) 0.4 Gran # 5.26 Lymph # (Auto) 2.5 [place] # (Auto) 0.4 Eos # (Auto) 0.2 Baso # (Auto) 0.03 Sodium 141 Potassium 3.8 Chloride 108 H Carbon Dioxide 22 Anion Gap 15 BUN 9 Creatinine 0.8 Est GFR ( Amer) > 60 Est GFR (Non-Af Amer) > 60 Random Glucose 87 Calcium 8.8 Magnesium 1.7 Total Bilirubin 1.1 Direct Bilirubin 0.0 AST 38 ALT 54 Alkaline Phosphatase 60 Total Protein 6.7 Albumin 3.9 Globulin 2.8 Albumin/Globulin Ratio 1.4 H. pylori Urease Test Detected H Assessment & Plan - Assessment and Plan (Free Text) Plan: IMPRESSION & PLAN: 1. Abdominal pain (resolved versus resolving). 2. HISTORY OF Questionable and possible left descending colon diverticulitis versus colitis versus epiploic appendagitis. 3. History of nicotine, alcohol and marijuana use and dependence. 4. Status post leukocytosis. 5. HISTORY OF systemic inflammatory response syndrome, leukocytosis, tachycardia and granulocytosis. 6. Abdominal pain secondary to above. 1. Questionable systemic inflammatory response syndrome with leukocytosis, low grade fever, tachycardia. 2. Transient hypertension. 3. Leukocytosis with granulocytosis. 4. Microcytic anemia. 5. Hypokalemia. 6. Ketonuria. 7. Urine drug screen positive for cannabinoids. 8. Nicotine, alcohol, and marijuana use and dependence. 9. Possible epiploic appendagitis with inflammatory changes adjacent to the descending colon. 1. Questionable and possible systemic inflammatory response syndrome. 2. Leukocytosis. 3. Descending colon diverticulitis versus colitis with infiltration of the adjacent fat. 4. History of marijuana, alcohol and nicotine dependence. 5. Granulocytosis. 6. Hyperglycemia. 7. Microscopic hematuria. 8. Urine drug screen positive for cannabinoids. 9. Questionable marijuana versus alcohol withdrawal with symptoms of nausea vomiting and abdominal pain. PLAN; PER ORDERS
[2018-02-28] MEDS: Thiamine 100 mg/ml Inj IV SCH ×3 (02:02→10:35)
--- NOTE | 2018-02-28 03:14 | CP.PCM.PN ---
Subjective - Date & Time of Evaluation Date of Evaluation: 02/28/18 Time of Evaluation: 03:12 - Subjective Subjective: Pt has very poor veins,needs iv access. Objective - Vital Signs/Intake and Output Vital Signs (last 24 hours): Temp Pulse Resp BP Pulse Ox 97.5 F L 52 L 16 127/83 100 02/27/18 21:05 02/27/18 21:05 02/27/18 21:05 02/27/18 21:05 02/27/18 20:30 Intake and Output: 02/27/18 02/28/18 18:59 06:59 Output Total 300 Balance -300 - Medications Medications: Current Medications Chlordiazepoxide (Librium) 25 mg PO Q4H PRN PRN Reason: Withdrawl Clonidine HCl (Catapres) 0.1 mg PO Q4H PRN PRN Reason: Symptoms of alcohol withdrawl Enoxaparin Sodium (Lovenox) 40 mg SC DAILY [facility] PRN Reason: Protocol Folic Acid (Folic Acid) 1 mg PO DAILY [facility] Haloperidol Lactate (Haldol) 2 mg IM Q8H PRN PRN Reason: Agitation Lactated Ringer's (Lactated Ringer's) 1,000 mls @ 100 mls/hr IV .Q10H [facility] Last Admin: 02/27/18 21:00 Dose: 100 mls/hr Lorazepam (Ativan) 1 mg IVP Q4H PRN; Protocol PRN Reason: Symptoms of alcohol withdrawl Last Admin: 02/28/18 00:53 Dose: 1 mg Metoclopramide HCl (Reglan) 5 mg IVP Q6H [facility] Last Admin: 02/28/18 02:07 Dose: 5 mg Multivitamins/Minerals (Therapeutic-M Tab) 1 tab PO DAILY [facility] Nicotine (Nicoderm Cq) 1 patch TD DAILY [facility] Last Admin: 02/28/18 02:01 Dose: Not Given Ondansetron HCl (Zofran Inj) 4 mg IVP Q4H PRN PRN Reason: Nausea/Vomiting Last Admin: 02/28/18 00:54 Dose: 4 mg Pantoprazole Sodium (Protonix Inj) 40 mg IVP Q12 [facility] Last Admin: 02/27/18 22:01 Dose: Not Given Thiamine HCl (Vitamin B1 Inj) 100 mg IV DAILY [facility] Stop: 03/02/18 10:01 Last Admin: 02/28/18 02:07 Dose: 100 mg Thiamine HCl (Vitamin B1 Tab) 100 mg PO DAILY [facility] Trazodone HCl (Desyrel) 50 mg PO HS PRN PRN Reason: Insomnia - Labs Labs: PT 12.1 SECONDS (9.4-12.5) 02/27/18 10:30 INR 1.05 (0.93-1.08) 02/27/18 10:30 APTT 39.0 Seconds (25.1-36.5) H 02/27/18 10:30 - Constitutional Appears: No Acute Distress Assessment and Plan - Assessment and Plan (Free Text) Assessment: Poor venous access. Plan: Hep lock inserted in the L hand. #22 angiocath used.
[2018-02-28] MEDS: Lactated Ringer's 1,000 ML IV SCH ×2 (05:47→21:13)
[2018-02-28 06:49] LABS: BASO # 0.03 K/mm3 (0.0-2.0); BASO % 0.4 % (0.0-3.0); EOS # 0.2 (0.0-0.7); GRAN # 5.26 (1.4-6.5); HEMOGLOBIN 14.5 g/dL (14.0-18.0); LYMPH # 2.5 (1.2-3.4); LYMPH % 29.9 % (22.0-35.0); MEAN CELL VOLUME 77.2 fl (80.0-105.0); MEAN CORPUSCULAR HEMOGLOBIN 27.8 pg (25.0-35.0); MEAN CORPUSCULAR HGB CONC 36.1 g/dl (31.0-37.0); MEAN PLATELET VOLUME 9.7 fl (7.0-11.0); MONO # 0.4 (0.1-0.6); MONO % 4.7 % (1.0-6.0); RBC 5.21 10^6/uL (3.5-6.1); RED CELL DISTRIBUTION WIDTH 13.7 % (11.5-14.5); WHITE BLOOD COUNT 8.4 10^3/ul (4.5-11.0)
[2018-02-28 07:35] LABS: ALB/GLOB RATIO 1.4 (1.1-1.8); ALBUMIN 3.9 g/dL (3.0-4.8); ALT/SGPT 54 U/L (7-56); AST/SGOT 38 U/L (17-59); BLOOD UREA NITROGEN 9 mg/dL (7-21); CALCIUM 8.8 mg/dL (8.4-10.5); GFR AFRICAN-AMERICAN > 60; GFR NON-AFRICAN AMERICAN > 60
[2018-02-28] MEDS: Enoxaparin 40 mg Syringe SC SCH (10:36)
[2018-02-28] MEDS: Multivitamin With Minerals Tab PO SCH (10:37)
[2018-02-28 12:20] LABS: UREA BREATH TEST(UBIT) Detected (Not Detected)
[2018-02-28] MEDS ORDERED: HYDROmorphone 0.5 mg/0.5 ml ISec SC PRN (16:52)
[2018-02-28] MEDS: HYDROmorphone 0.5 mg/0.5 ml ISec IVP PRN ×2 (17:13→23:59)
--- NOTE | 2018-02-28 19:02 | CP.PCM.PN ---
Subjective - Date & Time of Evaluation Date of Evaluation: 02/28/18 Time of Evaluation: 10:00 - Subjective Subjective: Medicine progress note: Dr. Womack Patient seen and examined at bedside. Patient still complaining of extensive pain and nausea, and is requesting pain medications. Patient takes oxy 30 at home, per patient. Objective - Vital Signs/Intake and Output Vital Signs (last 24 hours): Temp Pulse Resp BP Pulse Ox 97.9 F 68 20 120/78 100 02/28/18 17:44 02/28/18 17:44 02/28/18 17:44 02/28/18 17:44 02/28/18 17:44 Intake and Output: 02/28/18 02/28/18 06:59 18:59 Intake Total 120 360 Output Total 650 3 Balance -530 357 - Medications Medications: Current Medications Chlordiazepoxide (Librium) 25 mg PO Q4H PRN PRN Reason: Withdrawl Clonidine HCl (Catapres) 0.1 mg PO Q4H PRN PRN Reason: Symptoms of alcohol withdrawl Enoxaparin Sodium (Lovenox) 40 mg SC DAILY [facility] PRN Reason: Protocol Last Admin: 02/28/18 10:36 Dose: Not Given Folic Acid (Folic Acid) 1 mg PO DAILY [facility] Last Admin: 02/28/18 10:36 Dose: 1 mg Haloperidol Lactate (Haldol) 2 mg IM Q8H PRN PRN Reason: Agitation Hydromorphone HCl (Dilaudid) 0.5 mg IVP Q6H PRN PRN Reason: Pain, moderate (4-7) Last Admin: 02/28/18 17:13 Dose: 0.5 mg Lactated Ringer's (Lactated Ringer's) 1,000 mls @ 100 mls/hr IV .Q10H [facility] Last Admin: 02/28/18 05:47 Dose: 100 mls/hr Lorazepam (Ativan) 1 mg IVP Q4H PRN; Protocol PRN Reason: Symptoms of alcohol withdrawl Last Admin: 02/28/18 14:26 Dose: 1 mg Metoclopramide HCl (Reglan) 10 mg IVP ACHS [facility] Last Admin: 02/28/18 17:13 Dose: 10 mg Multivitamins/Minerals (Therapeutic-M Tab) 1 tab PO DAILY [facility] Last Admin: 02/28/18 10:37 Dose: 1 tab Nicotine (Nicoderm Cq) 1 patch TD DAILY [facility] Last Admin: 02/28/18 02:01 Dose: Not Given Ondansetron HCl (Zofran Inj) 8 mg IVP Q4H PRN PRN Reason: Nausea/Vomiting Last Admin: 02/28/18 14:27 Dose: 8 mg Pantoprazole Sodium (Protonix Inj) 40 mg IVP Q12 [facility] Last Admin: 02/28/18 10:36 Dose: 40 mg Thiamine HCl (Vitamin B1 Inj) 100 mg IV DAILY [facility] Stop: 03/02/18 10:01 Last Admin: 02/28/18 10:35 Dose: 100 mg Thiamine HCl (Vitamin B1 Tab) 100 mg PO DAILY [facility] Trazodone HCl (Desyrel) 50 mg PO HS PRN PRN Reason: Insomnia - Labs Labs: 02/28/18 06:35 02/28/18 06:35 PT 12.1 SECONDS (9.4-12.5) 02/27/18 10:30 INR 1.05 (0.93-1.08) 02/27/18 10:30 APTT 39.0 Seconds (25.1-36.5) H 02/27/18 10:30 - Constitutional Appears: Well - Head Exam Head Exam: ATRAUMATIC, NORMAL INSPECTION, NORMOCEPHALIC - Eye Exam Eye Exam: EOMI, Normal appearance, PERRL Pupil Exam: NORMAL ACCOMODATION, PERRL - ENT Exam ENT Exam: Mucous Membranes Moist, Normal Exam - Neck Exam Neck Exam: Full ROM, Normal Inspection. absent: Lymphadenopathy - Respiratory Exam Respiratory Exam: Clear to Ausculation Bilateral, NORMAL BREATHING PATTERN - Cardiovascular Exam Cardiovascular Exam: REGULAR RHYTHM, +S1, +S2. absent: Murmur - GI/Abdominal Exam GI & Abdominal Exam: Soft, Normal Bowel Sounds. absent: Tenderness - Extremities Exam Extremities Exam: Full ROM, Normal Capillary Refill, Normal Inspection. absent : Joint Swelling, Pedal Edema - Back Exam Back Exam: NORMAL INSPECTION - Neurological Exam Neurological Exam: Alert, Awake, CN II-XII Intact, Normal Gait, Oriented x3 - Psychiatric Exam Psychiatric exam: Normal Affect, Normal Mood - Skin Skin Exam: Dry, Intact, Normal Color, Warm Assessment and Plan - Assessment and Plan (Free Text) Assessment: 22 year old male with a past medical history of opioid use disorder who presents with epigastric pain, nausea, and vomiting after discontinuing his opioids. CT abdomen and pelvis negative for findings as well as abdominal ultrasound. Chest XR showed no acute disease. Vitals and Labs stable; UDS positive for cannibinoids and opioids EKG did show LVH by voltage criteria. Plan LVH, possibly 2/2 drug abuse - ECHO Abdominal Pain with associated nausea and vomiting, likely 2/2 Marijuana Hyperemesis Syndrome - Zofran 4 q4 PRN, Reglan 5 q6 [facility] - Dilaudid q6h - Urea breath test pending - GI Consult: Dr. Lowe - NPO Alcohol and Drug Withdrawal - CIWA protocol, Seizure precautions, Aspiration precautions, Fall Precautions - Librium 25 mg q4h PRN for alcohol withdrawal symptoms Drug Abuse - Advised cessation Alcohol Abuse - Advised cessation GI/DVT prophylaxis - Protonix 40 mg q12h [facility] - SCD
--- NOTE | 2018-02-28 20:18 | CON ---
DATE: 02/28/2018 GASTROENTEROLOGY CONSULTATION This consult is for Dr. Stewart, Dr. Lowe requesting. REASON FOR CONSULTATION: I have been asked to see this 22-year-old male who was admitted to the hospital for abdominal pain, nausea, and vomiting for 3 days associated with chills. The pain is somewhat persistent. The patient vomited earlier this morning. The patient states that he was unable to take anything by mouth at home. He also reports feeling tremulous and shaky over the last 2 days. The patient has been taking Percocet which he gets "from a friend" for low back pain. He has been doing this for the last 3 months. He stopped several days ago. He also smokes marijuana on a regular basis. CT scan of the abdomen and pelvis was negative for any acute changes. Ultrasound of the abdomen was negative for gallstones or abnormalities in the liver. The patient was admitted approximately 6 weeks ago for a left-sided abdominal pain as it was found to have appendagitis epiploicae at the end of December and was treated by Dr. Stewart. He currently denies any fevers. PAST MEDICAL HISTORY: Notable for appendagitis epiploicae, right arm abscess. PAST SURGICAL HISTORY: Notable for drainage of right arm abscess. SOCIAL HISTORY: He consumes alcohol on a regular basis. He smokes marijuana daily. He has been taking Percocet "from a friend" twice a day for the last 3 months for chronic back pain. He smokes less than a half pack of cigarettes per day. FAMILY HISTORY: Noncontributory. REVIEW OF SYSTEMS: Fourteen-point review of systems is notable for abdominal pain, nausea, vomiting, shaking, tremulousness. MEDICATIONS: At home, Percocet twice a day for several months, which he stopped several days ago. PHYSICAL EXAMINATION: GENERAL: Well-developed male lying in bed, appearing comfortable. He has a flat affect. VITAL SIGNS: Reveal temperature of 98.5, blood pressure 120/74, heart rate 64. HEENT: Reveal sclerae to be white. Conjunctivae pink. NECK: Supple. CHEST: Reveals lungs to be clear. HEART: Reveals regular rate and rhythm. ABDOMEN: Soft, mild diffuse tenderness. No rebound No guarding. EXTREMITIES: Show no edema. LABORATORY DATA: Reveals white blood cell count 8.4; hemoglobin 14.5, this is down from 17.2 on admission. Chemistries reveal chloride of 108. AST, ALT, alk phos were all normal. IMPRESSION: A 22-year-old male with 3 days of abdominal pain, nausea, vomiting, chills, clinically dehydrated with a negative computed tomography scan of the abdomen and pelvis as well as a negative ultrasound. The patient has been taking Percocet twice a day for 3 months. I suspect that his symptoms are partly related to opiate withdrawal. There are no acute findings on CAT scan and ultrasound. RECOMMENDATIONS: 1. Would continue IV fluids. 2. Continue close observation for development of DTs as he does have a history of alcohol use. 3. Continue antiemetics. Moody Lowe MD
[2018-02-28] MEDS ORDERED: CLARITHROMYCIN 250 MG/5 ML PO SCH (22:00)
[2018-02-28] MEDS ORDERED: Clarithromycin Susp 125 MG/5 ML PO SCH (22:00)
--- NOTE | 2018-03-01 01:12 | PN ---
DATE: 02/28/2018 SUBJECTIVE: The patient is seen lying in bed in room 362, bed 2. The patient is complaining of nausea, upper abdominal pain, discomfort. The patient denies any chest pain. PHYSICAL EXAMINATION: VITAL SIGNS: T-max 98.2, pulse 74, blood pressure , respiration 16, O2 sat 100%. HEENT: Head examination, normocephalic, atraumatic. HEENT examination shows pink conjunctivae. Anicteric sclerae. No oropharyngeal lesion. No neck rigidity. CHEST: Kyphosis. LUNGS: Shows no rales, crackles or wheezing. CARDIOVASCULAR: S1, S2, regular rhythm. ABDOMEN: Soft. Positive bowel sounds. Positive epigastric periumbilical tenderness noted. GENITALIA: Male. RECTAL: Deferred. EXTREMITIES: Shows no pitting edema, no calf tenderness, no Homans' sign. MUSCULOSKELETAL: Shows body mass index of 21. NEUROLOGIC: Cranial nerves II through XII intact. Gait examination not tested. DIAGNOSTICS: 02/28, WBC 8.4, hemoglobin and hematocrit 14.5 and 40.2, platelet 251. Sodium 141, potassium 3.8, chloride 108, CO2 22, anion gap 15, BUN 9, creatinine 0.8, GFR greater than 60, glucose 87, calcium 8.8, magnesium 1.7. LFTs are normal. is positive. Urine drug screen positive for opiates and cannabinoids. IMPRESSION: 1. Abdominal pain associated with nausea and vomiting. 2. Severely symptomatic opiate and marijuana withdrawal versus dependence with symptoms of abdominal pain, nausea, vomiting. 3. Active alcohol, nicotine, marijuana and narcotic abuse and dependence. 4. Transient transaminitis. 5. Mild rhabdomyolysis. 6. Urine drug screen positive for opiates and cannabinoids. 7. Most probably Helicobacter pylori gastritis. 8. Left ventricular hypertrophy. 9. History of opioid, alcohol and marijuana use disorder. 10. History of narcotic abuse and dependence. PLAN: At this time, patient has been ordered repeat labs. The patient is started on amoxicillin 1 g every 12 hours. The patient is on Ativan 1 mg IV every 4 hours p.r.n., Biaxin 500 mg twice a day, clonidine 0.1 mg every 4 hours p.r.n., trazodone 50 mg at bedtime p.r.n., Dilaudid 0.5 mg IV every 6 hours p.r.n., Folic acid 1 mg daily, Haldol 2 mg IM every 8 hours p.r.n., Ringer's lactate 100 mL an hour, Librium 25 mg p.o. every 4 hours p.r.n., Lovenox 40 mg subcutaneous daily, Nicotine patch 14 mg daily, Protonix 40 mg IV every 12 hours, Reglan 10 mg IV before meals and at bedtime, which will be changed to every 6 hours. Reglan 10 mg IV every 6 hours. The patient is on thiamine 100 mg IV daily. The patient is on Zofran 4 mg IV every 4 hours, which has been increased to 8 mg IV every [address] Lowe. The patient has been ordered echo with Doppler for evaluation of left ventricular hypertrophy. The patient has been ordered out of bed to chair, ambulate. The patient has been counseled about cessation of smoking, alcohol, marijuana and narcotic use, which the patient acknowledged and understand. Dictated and electronically signed, not read. Ron Womack MD
[2018-03-01] MEDS: Lactated Ringer's 1,000 ML IV SCH (03:06)
[2018-03-01 06:28] LABS: BASO # 0.01 K/mm3 (0.0-2.0); BASO % 0.1 % (0.0-3.0); GRAN # 9.6 (1.4-6.5); GRAN % 79.3 % (50.0-68.0); HEMOGLOBIN 14.2 g/dL (14.0-18.0); LYMPH % 16.8 % (22.0-35.0); MEAN CORPUSCULAR HEMOGLOBIN 28.1 pg (25.0-35.0); MEAN PLATELET VOLUME 10.1 fl (7.0-11.0); MONO # 0.5 (0.1-0.6); MONO % 3.8 % (1.0-6.0); RBC 5.05 10^6/uL (3.5-6.1); RED CELL DISTRIBUTION WIDTH 13.5 % (11.5-14.5); WHITE BLOOD COUNT 12.1 10^3/ul (4.5-11.0)
[2018-03-01 07:35] LABS: ALB/GLOB RATIO 1.5 (1.1-1.8); ALBUMIN 4.3 g/dL (3.0-4.8); ALT/SGPT 58 U/L (7-56); AST/SGOT 40 U/L (17-59); BLOOD UREA NITROGEN 11 mg/dL (7-21); CALCIUM 8.9 mg/dL (8.4-10.5); GFR AFRICAN-AMERICAN > 60; GFR NON-AFRICAN AMERICAN > 60
[2018-03-01 07:36] VITALS: BP 117/76; PULSE 64; RESP 18; TEMP 98.7; O2SAT 97
[2018-03-01 08:12] LABS: CK-MB 1.7 ng/mL (0.0-3.6)
[2018-03-01] MEDS: Multivitamin With Minerals Tab PO SCH (09:30)
[2018-03-01] MEDS: Enoxaparin 40 mg Syringe SC SCH (09:30)
[2018-03-01] MEDS: Thiamine 100 mg/ml Inj IV SCH (09:30)
[2018-03-01] MEDS: Magnesium Sulfate 2 GM in Sodium Chloride 0.9% 100 ML IVPB SCH ×2 (09:31→11:27)
--- NOTE | 2018-03-01 10:23 | PN ---
DATE: 03/01/2018 SUBJECTIVE: The patient is lying in bed face down. He is feeling better. He denies any vomiting overnight. He vomited yesterday requiring that he be made n.p.o. His Reglan was increased to 10 mg IV every 6 hours and Zofran 8 mg IV every 4 hours as needed. He feels better. He denies any abdominal pain. He is hungry and asking for something to eat. OBJECTIVE: VITAL SIGNS: Reveal temperature of 98.7, blood pressure 117/76, heart rate 64. HEENT: Reveal sclerae to be white. Conjunctivae pink. Oral mucosa moist. NECK: Supple. CHEST: Reveal lungs to be clear. HEART: Reveals regular rate and rhythm. ABDOMEN: Soft, nontender. No mass. EXTREMITIES: Show no edema. DATA: Laboratory data reveal white blood cell count 12.1; hemoglobin 14.2, down from 17.2. Chemistries reveal potassium 3.5, magnesium 1.6, ALT 58, AST 40, alkaline phosphatase 59. CK of 454. His H. pylori urease test was positive. CURRENT MEDICATIONS: Include amoxicillin 500 mg 2 tablets b.i.d.; Ativan 1 mg IV every 4 hours; Biaxin 500 mg b.i.d.; Catapres 0.1 mg p.o. every 4 hours as needed for alcohol withdrawal; Desyrel 50 mg at bedtime; Dilaudid 0.5 mg IV every 6 hours p.r.n. moderate abdominal pain; folic acid 1 mg daily; Haldol 2 mg IM every 8 hours p.r.n. agitation; Librium 25 mg p.o. every 4 hours p.r.n. withdrawal symptoms; Lovenox 40 mg subcutaneous daily; magnesium sulfate 2 g IV; NicoDerm-CQ patch one every 3 days; pantoprazole 40 mg IV every 12 hours; Reglan 10 mg IV at bedtime; MDI, thiamine 100 mg IV daily; Zofran 8 mg IV every 4 hours. IMPRESSION: This is a 22-year-old male with intractable nausea, vomiting, abdominal cramps and dizziness secondary to opiate withdrawal. The patient has been taking Percocet twice a day for three months. This was not prescribed to him, but he "was taking it from a "friend." His nausea and vomiting has improved. He denies any further abdominal pain. CT and ultrasound imaging show no acute changes. RECOMMENDATIONS: 1. Continue IV Reglan and IV Zofran as needed. 2. We will advance to clear liquid diet and then, advance to a low-fat, low residue diet. If clear liquids are tolerated, he can be discharged home once his diet is tolerated. Moody Lowe MD
[2018-03-01] MEDS: HYDROmorphone 0.5 mg/0.5 ml ISec IVP PRN (11:39)
--- NOTE | 2018-03-01 15:22 | CARD ---
APPROVED REPORT EXAM: Two-dimensional and M-mode echocardiogram with Doppler and color Doppler. INDICATION Chest Pain 2D DIMENSIONS Left Atrium (2D)3.4 (1.6-4.0cm)IVSd1.0 (0.7-1.1cm) LVDd3.8 (3.9-5.9cm)PWd1.0 (0.7-1.1cm) LVDs2.8 (2.5-4.0cm)FS (%) 25.7 % LVEF (%)51.3 (>50%) M-Mode DIMENSIONS Aortic Root2.20 (2.2-3.7cm)Aortic Cusp Exc.1.50 (1.5-2.0cm) Aortic Valve AoV Peak Kwhroiyn702.0cm/Gopi Peak GR.7mmHg Mitral Valve MV E Qlyojrtt49.5cm/sMV A Utupqdna44.7cm/sE/A ratio1.8 TDI E/Lateral E'0.0E/Medial E'0.0 Tricuspid Valve TR Peak [id number]/sRAP [id number] Peak Gr.19mmHg [id number] LEFT VENTRICLE The left ventricle is normal size. There is normal left ventricular wall thickness. The left ventricular function is normal.EF-55-60% There is normal LV segmental wall motion. The left ventricular diastolic function is normal. No left ventricle thrombus noted on this study. There is no ventricular septal defect visualized. There is no left ventricular aneurysm. There is no mass noted in the left ventricle. RIGHT VENTRICLE The right ventricle is normal size. There is normal right ventricular wall thickness. The right ventricular systolic function is normal. ATRIA The left atrium size is normal. The right atrium size is normal. The interatrial septum is intact with no evidence for an atrial septal defect. AORTIC VALVE The aortic valve is normal in structure. No aortic regurgitation is present. There is no aortic valvular stenosis. There is no aortic valvular vegetation. MITRAL VALVE The mitral valve is thickened but opens well. Mitral regurgitation is trace to mild. There is no mitral valve stenosis. There is no evidence of mitral valve prolapse. TRICUSPID VALVE The tricuspid valve leaflets are thickened , but open well. There is trace to mild tricuspid regurgitation. There is no tricuspid valve stenosis. There is no tricuspid valve prolapse or vegetation. PULMONIC VALVE The pulmonary valve is normal in structure. There is trace pulmonic valvular regurgitation. There is no pulmonic valvular stenosis. GREAT VESSELS The aortic root is normal in size. The ascending aorta is normal in size. The pulmonary artery is normal. The IVC is normal in size and collapses >50% with inspiration. PERICARDIAL EFFUSION There is no pleural effusion. There is no pericardial effusion. <Conclusion> Normal Chamber Size. EF-55-60% Trace to Mild MR/TR RVSP_29 mmof Hg. No Vegetation or thrombus noted,
--- NOTE | 2018-03-02 00:03 | DS ---
FINAL PROGRESS NOTE AND DISCHARGE SUMMARY The patient is seen in room 362, bed 2. The patient states that he is feeling much better. The patient was able to tolerate liquid diet, which was advanced to altered GI hepatic diet, which the patient tolerated and the patient was seen by Dr. Lowe today and the patient was cleared from GI perspective for discharge after the patient tolerates the diet. PHYSICAL EXAMINATION: VITAL SIGNS: T-max 98.7, pulse 64, blood pressure 117/76, respirations 18, O2 sat 97%-99%. Body mass index is 22. HEAD: Normocephalic, atraumatic. EENT: Shows pinkish conjunctivae, anicteric sclerae, dry oral mucosa. No neck rigidity. CHEST: Kyphosis. LUNGS: Show no rales, crackles, or wheezing. CARDIOVASCULAR: S1, S2, regular rhythm. ABDOMEN: Soft. Positive bowel sounds, much decreased epigastric and periumbilical tenderness. No guarding. No rigidity. No rebound tenderness. GENITALIA: Male. RECTAL: Deferred. EXTREMITIES: Show no pitting edema, no calf tenderness, no Homans sign. NEUROLOGIC: The patient is alert, awake, oriented x3. Cranial nerves II-XII intact. Gait examination is independent. VASCULAR: Palpable pulses. PSYCHIATRIC: Negative. DIAGNOSTICS: On 03/01/2018, WBC 12.1, hemoglobin and hematocrit 14.2 and 38.4, platelet 258. Granulocytes 79% segs. Sodium 141, potassium 3.5, chloride 102, CO2 of 24, anion gap 18, BUN 11, creatinine 0.8, GFR greater than 60, glucose 104, calcium 8.9, magnesium 1.6. ALT 58, CPK 454, total protein 7.2, albumin 4.3. H. Pylori urea breath test is positive. Echocardiogram results are available now, shows ejection fraction of 51%. Mild mitral regurgitation noted. Mild tricuspid regurgitation noted. FINAL IMPRESSION, PLAN, AND DISCHARGE DIAGNOSES: 1. History of nicotine, alcohol, marijuana, opiate, and narcotic abuse and dependence. 2. Severely symptomatic narcotic, opiates, and marijuana withdrawal with symptoms of abdominal pain and cramping, nausea, and vomiting. 3. Leukocytosis with granulocytosis. 4. Hypokalemia. 5. Hypomagnesemia. 6. Mildly elevated ALT. 7. Trace proteinuria. 8. Ketonuria. 9. Bacteriuria. 10. Urine drug screen positive for opiate and cannabinoid. 11. Helicobacter pylori gastritis with Helicobacter pylori urease breath test positive. 12. Left ventricular ejection fraction of 51%. 13. Mild mitral regurgitation, mild tricuspid regurgitation, and trace pulmonic regurgitation. 14. Left ventricular hypertrophy by voltage criteria on EKG. 15. Possible marijuana-induced hyper emesis syndrome. PLAN: At this time, the patient has been ordered supplementation of potassium and magnesium. The patient has been ordered magnesium sulfate rider. The patient has been ordered potassium riders x2. The patient's diet has been advanced to altered GI, which the patient tolerated and the patient will be considered for discharge. The patient's current medications are amoxicillin 1000 mg p.o. every 12 hours, Ativan 1 mg IV every 4 hours p.r.n., Biaxin 500 mg twice a day, clonidine 0.1 mg every 4 hours p.r.n., trazodone 50 mg at bedtime p.r.n., Dilaudid 0.5 mg IV every 6 hours p.r.n., folic acid 1 mg daily, Haldol 2 mg IM every 8 hours p.r.n., Librium 25 mg p.o. every 4 hours p.r.n., Lovenox 40 mg subcu daily, magnesium sulfate riders 2 g x2, nicotine patch 14 mg daily, K-Dur riders 20 mEq x2 riders, Protonix 40 mg IV every 12 hours, Reglan 10 mg IV every 6 hours, multivitamin 1 tablet daily, thiamine 100 mg IV daily, Zofran 8 mg every 4 hours p.r.n. The patient has been cleared for discharge. The patient's discharge medications are amoxicillin 1000 mg every 12 hours, Biaxin 500 every 12 hours, omeprazole 40 mg twice a day. The patient is to be discharged home. The patient is to be followed up with Dr. Womack within 1 week. The patient is counseled about cessation of smoking, alcohol drinking, and cessation of Percocet narcotic and marijuana use, which he acknowledged and understood. Time spent in the entire discharge process more than 45 minutes. Dictated and electronically signed, not read. Ron Womack MD
== END 2018-03-01 13:49 | disposition home or self-care (01) ==
LOC: ED 09:39 → ERH 19:36 → 3RSO 20:40 → 3RNO 22:16 → INTOOBSV 03-01 10:49 → OBSVTOIN 03-01 10:49
PROVIDERS: ADMIT Internal Medicine; ATTEND Internal Medicine
DX: F11.23 Opioid dependence with withdrawal (principal); F12.288 Cannabis dependence with other cannabis-induced disorder; D72.829 Elevated white blood cell count, unspecified; E87.6 Hypokalemia; E83.42 Hypomagnesemia; R82.71 Bacteriuria; R82.4 Acetonuria; I08.1 Rheumatic disorders of both mitral and tricuspid valves; F17.210 Nicotine dependence, cigarettes, uncomplicated; K29.70 Gastritis, unspecified, without bleeding; B96.81 Helicobacter pylori [H. pylori] as the cause of diseases classified elsewhere; M62.82 Rhabdomyolysis
CPT/HCPCS: 36415; 71045; 74177; 76700; 80053; 81001; 82150; 82248; 82550; 82553; 82803; 83013; 83615; 83690; 83735; 84484; 85025; 85610; 85730; 93005; 93306; 96361; 96365; 96367; 96368; 96372; 96375; 96376; 99285; C9113; G0378; G0480; J1170; J1650; J1885; J2060; J2405; J2765; J3411; J3475; J3480; J7040; J7120; Q9967

== ENCOUNTER 2018-03-02 01:59 | Observation (INO) | payer BC ==
[2018-03-02 01:59] VITALS: BMI 21.7
[2018-03-02 02:13] VITALS: RESP 18
--- NOTE | 2018-03-02 02:15 | ED PDOC ---
Arrival/HPI - General Time Seen by Provider: 03/02/18 02:01 Historian: Patient - History of Present Illness Narrative History of Present Illness (Text): 03/02/18 02:12 A 22 year old male, whose past medical history includes opioid use disorder, alcohol use disorder, marijuana, and reported history of colitis, presents to the emergency department for a complaint of abdominal pain with associated vomiting. As per the patient, he was discharged from the hospital yesterday. He admits to drinking wine this evening. The patient denies fevers, chills, headache, dizziness, chest pain, shortness of breath, dyspnea on exertion, cough , nausea, diarrhea, back pain, neck pain, urinary/bowel changes, or any other complaint. Time/Duration: Other (Today) Symptom Onset: Sudden Symptom Course: Unchanged Activities at Onset: Rest, Light Context: Home Past Medical History - Provider Review Nursing Documentation Reviewed: Yes - Infectious Disease Hx of Infectious Diseases: None - Cardiac Hx Cardiac Disorders: No - Pulmonary Hx Respiratory Disorders: No - Neurological Hx Neurological Disorder: No - HEENT Hx HEENT Disorder: No - Renal Hx Renal Disorder: No - Endocrine/Metabolic Hx Endocrine Disorders: No - Hematological/Oncological Hx Blood Disorders: No - Integumentary Hx Dermatological Disorder: Yes Other/Comment: Abcess removed from R arm - Musculoskeletal/Rheumatological Hx Falls: No - Gastrointestinal Hx Gastrointestinal Disorders: Yes (colitis) - Genitourinary/Gynecological Hx Genitourinary Disorders: No - Psychiatric Hx Substance Use: Yes (michael) - Surgical History Other/Comment: Abcess removal from R arm - Anesthesia Hx Anesthesia: Yes Hx Anesthesia Reactions: No Hx Malignant Hyperthermia: No Family/Social History - Physician Review Nursing Documentation Reviewed: Yes Family/Social History: No Known Family HX Smoking Status: Light Smoker < 10 Cigarettes Daily Hx Alcohol Use: Yes Hx Substance Use: Yes (michael) Substance used: marijuana; percocet Allergies/Home Meds Allergies/Adverse Reactions: Allergies No Known Allergies Allergy (Verified 03/02/18 02:09) Review of Systems - Physician Review All systems were reviewed & negative as marked: Yes - Review of Systems Constitutional: absent: Fevers, Night Sweats Respiratory: absent: SOB, Cough Cardiovascular: absent: Chest Pain, ACOSTA Gastrointestinal: Abdominal Pain, Vomiting. absent: Stool Changes, Diarrhea, Nausea Genitourinary Male: absent: Urinary Output Changes Musculoskeletal: absent: Back Pain, Neck Pain Neurological: absent: Headache, Dizziness Physical Exam Vital Signs Reviewed: Yes Vital Signs Pulse Resp BP Pulse Ox 03/02/18 05:36 75 18 120/58 L 100 03/02/18 02:09 85 18 136/114 H 100 Temperature: Afebrile Blood Pressure: Normal Pulse: Regular Respiratory Rate: Normal Appearance: Positive for: Well-Appearing, Non-Toxic, Comfortable Pain Distress: None Mental Status: Positive for: Alert and Oriented X 3 - Systems Exam Head: Present: Atraumatic, Normocephalic Pupils: Present: PERRL Extroacular Muscles: Present: EOMI Conjunctiva: Present: Normal Mouth: Present: Moist Mucous Membranes Neck: Present: Normal Range of Motion Respiratory/Chest: Present: Clear to Auscultation, Good Air Exchange. No: Respiratory Distress, Accessory Muscle Use Cardiovascular: Present: Regular Rate and Rhythm, Normal S1, S2. No: Murmurs Abdomen: Present: Tenderness (epigastrum). No: Distention, Peritoneal Signs Back: Present: Normal Inspection Upper Extremity: Present: Normal Inspection. No: Cyanosis, Edema Lower Extremity: Present: Normal Inspection. No: Edema Neurological: Present: GCS=15, CN II-XII Intact, Speech Normal Skin: Present: Warm, Dry, Normal Color. No: Rashes Psychiatric: Present: Alert, Oriented x 3, Normal Insight, Normal Concentration Medical Decision Making ED Course and Treatment: 03/02/18 02:15 Impression: A 22 year old male presents to the emergency department for a complaint of abdominal pain and vomiting this evening. Plan: -- Chest X-ray -- Urinalysis -- Labs -- Pepcid, Zofran, and IV Fluids -- Reassess and disposition Progress Notes: 03/02/18 03:11: Chest X-ray read and interpreted by me is negative for free air. 03/02/18 04:39: Case discussed in detail with Dr. Womack. Will admit patient to his service. - Lab Interpretations Lab Results: 03/02/18 02:30 03/02/18 02:30 Lab Results 03/02/18 02:30: Alcohol, Quantitative < 10 03/02/18 02:30: Sodium 141, Potassium 3.4 L, Chloride 104, Carbon Dioxide 24, Anion Gap 17, BUN 8, Creatinine 0.7 L, Est GFR ( Amer) > 60, Est GFR (Non -Af Amer) > 60, Random Glucose 103, Calcium 8.7, Magnesium 2.3 H, Total Bilirubin 1.0, AST 39, ALT 53, Alkaline Phosphatase 66, Total Protein 7.6, Albumin 4.6, Globulin 3.0, Albumin/Globulin Ratio 1.6, Lipase 474 H 03/02/18 02:30: WBC 9.9, RBC 5.42, Hgb 15.6, Hct 41.1 L, MCV 75.8 L, MCH 28.8, MCHC 38.0 H, RDW 13.5, Plt Count 242, MPV 9.6, Gran % 70.7 H, Lymph % (Auto) 22.8, Teller % (Auto) 5.9, Eos % (Auto) 0.3 L, Baso % (Auto) 0.3, Gran # 7.00 H, Lymph # (Auto) 2.3, Teller # (Auto) 0.6, Eos # (Auto) 0.0, Baso # (Auto) 0.03 - RAD Interpretation Radiology Orders: 03/02/18 02:24 CHEST PORTABLE [RAD] Stat - Medication Orders Current Medication Orders: Sodium Chloride (Sodium Chloride 0.9%) 1,000 mls @ 100 mls/hr IV .Q10H STA Stop: 03/02/18 12:23 Last Admin: 03/02/18 02:45 Dose: 100 mls/hr eMAR Start Stop Document 03/02/18 02:45 AD (Rec: 03/02/18 02:45 AD [id number]) Intravenous Solution Start Date 03/02/18 Start Time 02:45 Metoclopramide HCl (Reglan) 5 mg IVP Q6H CLARISSE Last Admin: 03/02/18 05:20 Dose: 5 mg IVP Administration Document 03/02/18 05:20 AD (Rec: 03/02/18 05:20 AD [id number]) Charges for Administration # of IVP Administrations 1 Ondansetron HCl (Zofran Inj) 4 mg IVP Q4H PRN PRN Reason: Nausea/Vomiting Pantoprazole Sodium (Protonix Inj) 40 mg IVP Q12 CLARISSE Discontinued Medications Famotidine (Pepcid) 20 mg IVP STAT STA Stop: 03/02/18 02:25 Last Admin: 03/02/18 02:45 Dose: 20 mg IVP Administration Document 03/02/18 02:45 AD (Rec: 03/02/18 02:45 AD [id number]) Charges for Administration # of IVP Administrations 1 Hydromorphone HCl (Dilaudid) 2 mg IVP STAT STA Stop: 03/02/18 03:13 Last Admin: 03/02/18 03:24 Dose: 2 mg MAR Pain Assessment Document 03/02/18 03:24 AD (Rec: 03/02/18 03:25 AD [id number]) Pain Reassessment Is this a pain reassessment? No Presence of Pain Presence of Pain Yes Pain Scale Used Pain Scale Used Numeric Location Pain Location Body Site Abdomen IVP Administration Document 03/02/18 03:24 AD (Rec: 03/02/18 03:25 AD [id number]) Charges for Administration # of IVP Administrations 1 Ondansetron HCl (Zofran Inj) 4 mg IVP STAT STA Stop: 03/02/18 02:25 Last Admin: 03/02/18 02:44 Dose: 4 mg IVP Administration Document 03/02/18 02:44 AD (Rec: 03/02/18 02:45 AD [id number]) Charges for Administration # of IVP Administrations 1 Potassium Chloride (K-Dur 20 Meq Er Tab) 40 meq PO STAT STA Stop: 03/02/18 04:52 Last Admin: 03/02/18 05:20 Dose: 40 meq - Scribe Statement The provider has reviewed the documentation as recorded by the Hi Goodman Provider Scribe Attestation: All medical record entries made by the Hi were at my direction and personally dictated by me. I have reviewed the chart and agree that the record accurately reflects my personal performance of the history, physical exam, medical decision making, and the department course for this patient. I have also personally directed, reviewed, and agree with the discharge instructions and disposition. Disposition/Present on Arrival - Present on Arrival Any Indicators Present on Arrival: No History of DVT/PE: No History of Uncontrolled Diabetes: No Urinary Catheter: No History Surgical Site Infection Following: None - Disposition Have Diagnosis and Disposition been Completed?: Yes Diagnosis: Gastritis, Pancreatitis Disposition: HOSPITALIZED Disposition Time: 04:40 Condition: FAIR
[2018-03-02] MEDS ORDERED: Sodium Chloride 0.9% 1,000 ML IV STA (02:24)
[2018-03-02 02:45] LABS: BASO # 0.03 K/mm3 (0.0-2.0); BASO % 0.3 % (0.0-3.0); EOS % 0.3 % (1.5-5.0); GRAN % 70.7 % (50.0-68.0); HEMOGLOBIN 15.6 g/dL (14.0-18.0); LYMPH # 2.3 (1.2-3.4); LYMPH % 22.8 % (22.0-35.0); MEAN CELL VOLUME 75.8 fl (80.0-105.0); MEAN CORPUSCULAR HEMOGLOBIN 28.8 pg (25.0-35.0); MEAN PLATELET VOLUME 9.6 fl (7.0-11.0); MONO # 0.6 (0.1-0.6); MONO % 5.9 % (1.0-6.0); RBC 5.42 10^6/uL (3.5-6.1); RED CELL DISTRIBUTION WIDTH 13.5 % (11.5-14.5); WHITE BLOOD COUNT 9.9 10^3/ul (4.5-11.0)
[2018-03-02] MEDS ORDERED: HYDROmorphone 2 mg/ml ISec IVP STA (03:12)
[2018-03-02 03:17] LABS: ALB/GLOB RATIO 1.6 (1.1-1.8); ALBUMIN 4.6 g/dL (3.0-4.8); ALT/SGPT 53 U/L (7-56); AST/SGOT 39 U/L (17-59); BLOOD UREA NITROGEN 8 mg/dL (7-21); CALCIUM 8.7 mg/dL (8.4-10.5); GFR AFRICAN-AMERICAN > 60; GFR NON-AFRICAN AMERICAN > 60; LIPASE 474 U/L (23-300)
[2018-03-02] MEDS ORDERED: Potassium Chloride 20 mEq ER Tab PO STA (04:51)
--- NOTE | 2018-03-02 05:21 | CP.PCM.HP ---
<Oracio Vasquez - Last Filed: 03/02/18 05:26> History of Present Illness - History of Present Illness History of Present Illness: 22 year old male with a past medical history of opiod use disorder, alcohol use disorder, marijuana, recently started on triple therapy for H.pylori gastritis who presents with epigastric pain after drinking a glass of wine with dinner. He was recently discharged for epigastric pain with intractable nausea and vomiting,multifactorial in nature He was found to have H. pylori gastritis and started on triple therapy. He reports this time that he vomited so much that he bled from his nose. He reports the alleviating factors for his symptoms were the pain medication he received in the ED. He denies fever, chills, chest pain, hematemesis, diarrhea, recent trauma. He admits to drinking two shots of liquor a day, smoking two black and milds daily, and smoking marijuana 3 times a day. Otherwise, 12 point review of system is negative. PMH: Opiod use disorder, recently diagnosed H.pylori gastritis by urease breath test Past Surgical History: right arm abscess removed at age of 5 Allergies: Denies Social: works for [employer], smokes Marijuana three times daily, smokes two black and milds daily, two shots of alcohol daily, using Oxycodone 30 mg twice a day since September of this year PMD: Dr. Womack Present on Admission - Present on Admission Any Indicators Present on Admission: No Review of Systems - Constitutional Constitutional: absent: Chills, Fatigue, Malaise - EENT Eyes: absent: Floaters, Irritation, Loss of Peripheral Vision Nose/Mouth/Throat: Epistaxis. absent: Sore Throat, Throat Swelling - Cardiovascular Cardiovascular: absent: Chest Pain, Diaphoresis, Dyspnea - Respiratory Respiratory: absent: Wheezing, Chest Congestion, Excessive Mucous Production - Gastrointestinal Gastrointestinal: absent: Coffee Ground Emesis, Constipation, Diarrhea - Genitourinary Genitourinary: absent: Change in Urinary Stream, Difficulty Urinating, Dysuria - Musculoskeletal Musculoskeletal: absent: Arthralgias, Joint Swelling, Limited Range of Motion - Integumentary Integumentary: absent: Acne, Alopecia, Hirsutism - Neurological Neurological: absent: Abnormal Hearing, Convulsions, Dizziness - Hematologic/Lymphatic Hematologic: absent: Easy Bleeding, Easy Bruising Past Patient History - Infectious Disease Hx of Infectious Diseases: None - Past Social History Smoking Status: Light Smoker < 10 Cigarettes Daily - CARDIAC Hx Cardiac Disorders: No - PULMONARY Hx Respiratory Disorders: No - NEUROLOGICAL Hx Neurological Disorder: No - HEENT Hx HEENT Problems: No - RENAL Hx Chronic Kidney Disease: No - ENDOCRINE/METABOLIC Hx Endocrine Disorders: No - HEMATOLOGICAL/ONCOLOGICAL Hx Blood Disorders: No - INTEGUMENTARY Hx Dermatological Problems: Yes Other/Comment: Abcess removed from R arm - MUSCULOSKELETAL/RHEUMATOLOGICAL Hx Falls: No - GASTROINTESTINAL Hx Gastrointestinal Disorders: Yes (colitis) - GENITOURINARY/GYNECOLOGICAL Hx Genitourinary Disorders: No - PSYCHIATRIC Hx Substance Use: Yes (marijuanna) - SURGICAL HISTORY Other/Comment: Abcess removal from R arm - ANESTHESIA Hx Anesthesia: Yes Hx Anesthesia Reactions: No Hx Malignant Hyperthermia: No Meds Allergies/Adverse Reactions: Allergies Allergy/AdvReac Type Severity Reaction Status Date / Time No Known Allergies Allergy Verified 03/02/18 02:09 Physical Exam - Constitutional Appears: Other (weak) - Head Exam Head Exam: ATRAUMATIC, NORMOCEPHALIC - Eye Exam Eye Exam: Conjunctival injection, EOMI Pupil Exam: PERRL - ENT Exam ENT Exam: Mucous Membranes Dry - Neck Exam Additional comments: hyper pigmented spots on anterior neck and chest - Respiratory Exam Respiratory Exam: Clear to Auscultation Bilateral, NORMAL BREATHING PATTERN. absent: Accessory Muscle Use - Cardiovascular Exam Cardiovascular Exam: RRR, +S1, +S2 - GI/Abdominal Exam GI & Abdominal Exam: Tenderness (epigastrium) - Extremities Exam Extremities exam: Positive for: normal inspection. Negative for: calf tenderness - Back Exam Back exam: NORMAL INSPECTION. absent: CVA tenderness (L), CVA tenderness (R) - Neurological Exam Neurological exam: Alert, CN II-XII Intact, Oriented x3 - Psychiatric Exam Psychiatric exam: Normal Affect, Normal Mood - Skin Skin Exam: Dry, Intact, Normal Color, Warm Results - Vital Signs Recent Vital Signs: Last Vital Signs Temp Pulse 85 03/02/18 02:09 Resp 18 03/02/18 02:09 BP 136/114 H 03/02/18 02:09 Pulse Ox 100 03/02/18 02:09 - Labs Result Diagrams: 03/02/18 02:30 03/02/18 02:30 Labs: Laboratory Results - last 24 hr 03/02/18 03/02/18 03/02/18 02:30 02:30 02:30 WBC 9.9 RBC 5.42 Hgb 15.6 Hct 41.1 L MCV 75.8 L MCH 28.8 MCHC 38.0 H RDW 13.5 Plt Count 242 MPV 9.6 Gran % 70.7 H Lymph % (Auto) 22.8 Vance % (Auto) 5.9 Eos % (Auto) 0.3 L Baso % (Auto) 0.3 Gran # 7.00 H Lymph # (Auto) 2.3 Vance # (Auto) 0.6 Eos # (Auto) 0.0 Baso # (Auto) 0.03 Sodium 141 Potassium 3.4 L Chloride 104 Carbon Dioxide 24 Anion Gap 17 BUN 8 Creatinine 0.7 L Est GFR ( Amer) > 60 Est GFR (Non-Af Amer) > 60 Random Glucose 103 Calcium 8.7 Magnesium 2.3 H Total Bilirubin 1.0 AST 39 ALT 53 Alkaline Phosphatase 66 Total Protein 7.6 Albumin 4.6 Globulin 3.0 Albumin/Globulin Ratio 1.6 Lipase 474 H Alcohol, Quantitative < 10 Assessment & Plan - Assessment and Plan (Free Text) Assessment: 22 year old with a past medical history significant for opioid use disorder, alcohol use disorder, H.pylori gastritis recently discharged on triple therapy who returns after drinking wine and developing epigastric pain, nausea, vomiting , and associated epistaxis. In the ED he was found to have an elevated lipase. Plan: 1) Pancreatitis - Lipase 454 - NPO diet - Reglan 5 mg q6h CLARISSE - Protonix 40 mg IVP q12h - Zofran 4 mg q4h - NS 100 ml/hr - GI consulted, Dr. Lowe - Holding triple therapy at this time 2) Alcohol withdrawal - CIWA protocol - Consider adding Benzodiazepine if appropriate 3) DVT/GI prophylaxis - SCD - Protonix 40 mg q12h CLARISSE Case reviewed and discussed with attending physician, Dr. Womack - Date & Time Date: 03/02/18 Time: 05:35 <Ron Womack - Last Filed: 03/02/18 10:54> Results - Vital Signs Recent Vital Signs: Last Vital Signs Temp 98.5 F 03/02/18 06:00 Pulse 54 L 03/02/18 06:00 Resp 18 03/02/18 06:00 BP 106/72 03/02/18 06:00 Pulse Ox 99 03/02/18 06:00 - Labs Result Diagrams: 03/02/18 02:30 03/02/18 02:30 Labs: Laboratory Results - last 24 hr 03/02/18 05:22 Urine Color Yellow Urine Appearance Clear Urine pH 8.0 Ur Specific [place] >= 1.030 Urine Protein Trace H Urine Glucose (UA) Negative Urine Ketones Negative Urine Blood Negative Urine Nitrate Negative Urine Bilirubin Negative Urine Urobilinogen 2.0 H Ur Leukocyte Esterase Negative Urine RBC 0 - 2 Urine WBC 0 - 2 Ur Epithelial Cells 0 - 2 Assessment & Plan - Assessment and Plan (Free Text) Plan: Patient seen and examined with the medical residents Please refer to the detailed history physical examination completed by the medical management specialist on 03/02/2018 Impression and plan: Questionable and possible mild pancreatitis with mildly elevated lipase Abdominal pain after alcohol use Trace proteinuria Chronic active nicotine, alcohol, narcotics, marijuana abuse and dependence Poor compliance Helicobacter pylori gastritis with urea breath test positive Plan: Admit to [facility] IV fluid hydration Nothing by mouth diet Protonix 40 mg IV every 12 Reglan 10 mg IV push every 6 hours Zofran 4 mg IV push every 4 hours when necessary IV fluid hydration Gastroenterology consultation. Dictated and electronically signed not read Ron Womack M.D.
[2018-03-02 05:39] LABS: URINE BILIRUBIN NEGATIVE (NEGATIVE); URINE BLOOD NEGATIVE (NEGATIVE); URINE GLUCOSE (UA) NEGATIVE (NEGATIVE); URINE LEUKOCYTE ESTERASE NEGATIVE Leu/uL (NEGATIVE); URINE PROTEIN TRACE mg/dL (<30 mg/dL)
[2018-03-02 05:42] LABS: URINE APPEARANCE CLEAR (CLEAR); URINE COLOR YELLOW (YELLOW)
[2018-03-02 06:01] LABS: URINE EPITHELIAL CELLS 0 - 2 /hpf (0-5); URINE RBC 0 - 2 /hpf (0-2); URINE WBC 0 - 2 /hpf (0-6)
[2018-03-02] MEDS ORDERED: Lactated Ringer's 1,000 ML IV SCH (07:00)
[2018-03-02 07:41] VITALS: BP 106/72; PULSE 54; TEMP 98.5; O2SAT 99
--- NOTE | 2018-03-02 09:00 | RAD ---
HISTORY: abd pain COMPARISON: 02/27/2018 FINDINGS: LUNGS: No active pulmonary disease. PLEURA: No significant pleural effusion identified, no pneumothorax apparent. CARDIOVASCULAR: Normal. OSSEOUS STRUCTURES: No significant abnormalities. VISUALIZED UPPER ABDOMEN: Normal. OTHER FINDINGS: None. IMPRESSION: No active disease.
--- NOTE | 2018-03-02 16:57 | CP.PCM.PN ---
Subjective - Date & Time of Evaluation Date of Evaluation: 03/02/18 Time of Evaluation: 16:54 - Subjective Subjective: I was paged by the nurse because patient wanted to sign AMA. I explained to him the risks of leaving AMA, including possible infection, worsening pancreatitis, permanent disability and/or , possible opiate withdrawal. Patient expressed understanding and chose to leave AMA in the witness of RN with me. Patient was competent to leave AMA. Objective - Vital Signs/Intake and Output Vital Signs (last 24 hours): Temp Pulse Resp BP Pulse Ox 98.5 F 54 L 18 106/72 99 03/02/18 06:00 03/02/18 06:00 03/02/18 06:00 03/02/18 06:00 03/02/18 06:00
--- NOTE | 2018-03-02 17:56 | CON ---
DATE: 03/02/2018 GASTROENTEROLOGY CONSULTATION REQUESTING PHYSICIAN: Ron Womack MD REASON FOR CONSULTATION: I have been asked to see this 22-year-old male with a history of opiate abuse, who is discharged from the hospital yesterday, but comes back with intractable nausea, vomiting, epistaxis, and abdominal pain. Patient apparently had a glass of wine with dinner. He also has a history of alcohol abuse in the past. He also smokes marijuana on a regular basis. Imaging studies several days ago revealed a negative CT scan of the abdomen and pelvis, and a negative ultrasound of the abdomen. He remains extremely nauseous. The patient also had a positive H. pylori urease test. He was started on treatment with PPI, clarithromycin 500 b.i.d. and amoxicillin 1 g twice a day. He denies any hematemesis, melena, rectal bleeding, fevers, or chills. He currently has minimal abdominal pain. Patient has a history of opiate abuse for the last several months, which he obtained from a friend. He is taking two Percocet's a day for 3 months and apparently stopped several days ago. PAST MEDICAL HISTORY: Notable for opiate abuse and dependence, marijuana use, alcoholism. PAST SURGICAL HISTORY: Notable for drainage of a right arm abscess as a child. SOCIAL HISTORY: As above. He works as a dedicated intermodal truck driver. FAMILY HISTORY: Noncontributory. REVIEW OF SYSTEMS: Fourteen-point review of systems is notable for nausea, vomiting, epistaxis, and abdominal cramps. PHYSICAL EXAMINATION: GENERAL: Well-developed male, lying in bed, in no acute distress. VITAL SIGNS: Reveal temperature of 98.5, blood pressure 106/72, heart rate of 54. HEENT: Reveal sclerae to be white. Conjunctivae pink. Oral mucosa is moist. NECK: Supple. CHEST: Reveals lungs to be clear. HEART: Reveals regular rate and rhythm. ABDOMEN: Soft, nontender. EXTREMITIES: Show no edema. LABORATORY DATA: Reveals white blood cell count of 9.9, hemoglobin 15.6. Chemistries reveal potassium of 3.4, magnesium 2.3. Lipase 474. IMPRESSION: 1. Opiate withdrawal disorder. 2. Abdominal pain in a patient with chronic pain syndrome. This may be opiate seeking behavior. 3. Elevated lipase. I do not believe that this is acute pancreatitis. An imaging study performed several days ago was negative for pancreatitis. 4. Helicobacter pylori urease test positive. RECOMMENDATIONS: 1. Keep n.p.o. for now as he still remains nauseous. 2. Continue IV Reglan. 3. Continue IV Zofran 4 mg every 4 hours as needed for nausea and vomiting. 4. Advance to clear liquids when the patient's nausea resolves. 5. Opiate dependence. I would not give the patient any opiate or analgesics, and continue with Toradol. Moody Lowe MD
== END 2018-03-02 12:17 | disposition left against medical advice (07) ==
LOC: ED 01:59 → ERH 04:48 → 5RNO 05:54
PROVIDERS: ADMIT Internal Medicine; ATTEND Internal Medicine
DX: K85.90 Acute pancreatitis without necrosis or infection, unspecified (principal); F11.23 Opioid dependence with withdrawal; F12.10 Cannabis abuse, uncomplicated; K29.70 Gastritis, unspecified, without bleeding; B96.81 Helicobacter pylori [H. pylori] as the cause of diseases classified elsewhere; G89.4 Chronic pain syndrome; F10.239 Alcohol dependence with withdrawal, unspecified; Y90.0 Blood alcohol level of less than 20 mg/100 ml; Z87.891 Personal history of nicotine dependence
CPT/HCPCS: 71045; 80053; 81001; 83690; 83735; 85025; 96372; 96374; 96375; 96376; 99284; C9113; G0378; G0480; J1170; J1644; J1885; J2405; J2765; J3480; J7040; J7120

== ENCOUNTER 2018-04-29 19:57 | Inpatient (IN) | payer BC ==
[2018-04-29] MEDS ORDERED: Famotidine 20mg/50ml 20 MG/50 ML BAG IVPB STA (20:13)
--- NOTE | 2018-04-29 20:14 | ED PDOC ---
Arrival/HPI - General Chief Complaint: Abdominal Pain Time Seen by Provider: 04/29/18 20:07 Historian: Patient - History of Present Illness Narrative History of Present Illness (Text): 04/29/18 20:11 A 22 year old male, whose past medical history includes opioid use disorder, alcohol use disorder, marijuana, and reported history of colitis, presents to the emergency department for a complaint of abdominal pain with associated vomiting since this morning. Patient stated he had stopped using Cannabis, and Opiods for about 4 weeks. Time/Duration: Other Context: Home Past Medical History - Provider Review Nursing Documentation Reviewed: Yes - Infectious Disease Hx of Infectious Diseases: None - Cardiac Hx Cardiac Disorders: No - Pulmonary Hx Respiratory Disorders: No - Neurological Hx Neurological Disorder: No - HEENT Hx HEENT Disorder: No - Renal Hx Renal Disorder: No - Endocrine/Metabolic Hx Endocrine Disorders: No - Hematological/Oncological Hx Blood Disorders: No - Integumentary Hx Dermatological Disorder: Yes Other/Comment: Abcess removed from R arm - Musculoskeletal/Rheumatological Hx Falls: No - Gastrointestinal Hx Gastrointestinal Disorders: Yes (colitis) Hx Pancreatitis: Yes - Genitourinary/Gynecological Hx Genitourinary Disorders: No - Psychiatric Hx Psychophysiologic Disorder: No Hx Substance Use: Yes (marijuanna) - Surgical History Other/Comment: Abcess removal from R arm - Anesthesia Hx Anesthesia: Yes Hx Anesthesia Reactions: No Hx Malignant Hyperthermia: No Family/Social History - Physician Review Nursing Documentation Reviewed: Yes Family/Social History: Other Smoking Status: Light Smoker < 10 Cigarettes Daily Hx Alcohol Use: Yes Hx Substance Use: Yes (ju) Substance used: marijuana; percocet Allergies/Home Meds Allergies/Adverse Reactions: Allergies No Known Allergies Allergy (Verified 04/29/18 20:02) Home Medications: Home Meds Medication Instructions Recorded Confirmed No Known Home Med 04/29/18 04/29/18 Review of Systems - Review of Systems Constitutional: Normal. absent: Fatigue, Weight Change, Fevers, Night Sweats Eyes: Normal ENT: Normal Respiratory: Normal. absent: SOB, Cough, Sputum, Wheezing Cardiovascular: Normal. absent: Chest Pain, Palpitations Gastrointestinal: Abdominal Pain, Nausea, Vomiting. absent: Constipation, Diarrhea Genitourinary Male: Normal. absent: Dysuria, Frequency, Hematuria Musculoskeletal: Normal Skin: Normal. absent: Rash Neurological: Normal. absent: Headache, Dizziness, Focal Weakness, Gait Changes , Speech Changes, Facial Droop, Disequilibrium, Seizure Endocrine: Normal Hemo/Lymphatic: Normal Psychiatric: Normal Physical Exam Vital Signs Temp Pulse Resp BP Pulse Ox 04/29/18 23:06 85 16 123/77 99 04/29/18 20:02 98.1 F 83 20 134/85 96 Temperature: Afebrile Blood Pressure: Normal Pulse: Regular Respiratory Rate: Normal Appearance: Positive for: Well-Appearing, Non-Toxic, Comfortable Pain Distress: None Mental Status: Positive for: Alert and Oriented X 3 - Systems Exam Head: Present: Atraumatic, Normocephalic Pupils: Present: PERRL Extroacular Muscles: Present: EOMI Conjunctiva: Present: Normal Mouth: Present: Moist Mucous Membranes Neck: Present: Normal Range of Motion Respiratory/Chest: Present: Clear to Auscultation, Good Air Exchange. No: Respiratory Distress, Accessory Muscle Use Cardiovascular: Present: Regular Rate and Rhythm, Normal S1, S2. No: Murmurs Abdomen: No: Tenderness, Distention, Peritoneal Signs Back: Present: Normal Inspection. No: CVA Tenderness Upper Extremity: Present: Normal Inspection. No: Cyanosis, Edema Lower Extremity: Present: Normal Inspection. No: Edema Neurological: Present: GCS=15, CN II-XII Intact, Speech Normal Skin: Present: Warm, Dry, Normal Color. No: Rashes Psychiatric: Present: Alert, Oriented x 3, Normal Insight, Normal Concentration Medical Decision Making ED Course and Treatment: 04/29/18 21:46 Patient continues with belching despite zofran Atrachna, Dr. Clemons recommended 0.5 mg IM Haldo 04/29/18 23:[address] Womack regarding patient having intractable vomiting. Patient admits stopping opiods, and cannabis use. I reviewed labs, UA, CT scan result. He agreed with plan for observation on [facility], and to contact resident care manager rn. Dr. Womack recommended 2 NS liter of fluids, blood Cx., I spoke with resident care manager rn regarding patient history. He said he will come to ED and examined patient. Patient agreed to stay in the hospital for observation. Re-evaluation Time: 23:04 Reassessment Condition: Re-examined, Improved - Lab Interpretations Lab Results: 04/29/18 20:15 04/29/18 20:15 Lab Results 04/29/18 21:55: Urine Opiates Screen Negative, Urine Methadone Screen Negative, Ur Barbiturates Screen Negative, Ur Phencyclidine Scrn Negative, Ur Amphetamines Screen Negative, U Benzodiazepines Scrn Negative, U Oth Cocaine Metabols Negative, U Cannabinoids Screen Positive H 04/29/18 21:55: Urine Color Yellow, Urine Appearance Clear, Urine pH 7.5, Ur Specific [place] 1.015, Urine Protein 30 H, Urine Glucose (UA) Negative, Urine Ketones 15 H, Urine Blood Negative, Urine Nitrate Negative, Urine Bilirubin Negative, Urine Urobilinogen 0.2, Ur Leukocyte Esterase Negative, Urine RBC Negative, Urine WBC 1 - 3, Ur Epithelial Cells 3 - 4, Urine Bacteria Few 04/29/18 20:15: Alcohol, Quantitative < 10 04/29/18 20:15: Sodium 142, Chloride 107, Potassium 4.0, Carbon Dioxide 19 L, Anion Gap 20, BUN 10, Creatinine 0.7 L, Est GFR ( Amer) > 60, Est GFR ( Non-Af Amer) > 60, Random Glucose 136 H, Calcium 10.1, Magnesium 1.8, Total Bilirubin 0.8, AST 41, ALT 34, Alkaline Phosphatase 75, Total Protein 8.1, Albumin 5.0 H, Globulin 3.0, Albumin/Globulin Ratio 1.7, Lipase 36 04/29/18 20:15: pO2 233 H, VBG pH 7.43, VBG pCO2 30.0 L, VBG HCO3 19.9 L, VBG Total CO2 20.8 L, VBG O2 Sat (Calc) 100.2 H, VBG Base Excess -3.3 L, VBG Potassium 4.5, Sodium 138.0, Chloride 107.0, Glucose 147 H, Lactate 3.7 H, FiO2 21.0, Venous Blood Potassium 4.5 04/29/18 20:15: WBC 13.0 H D, RBC 5.61, Hgb 15.8, Hct 42.1, MCV 75.0 L, MCH 28.2 , MCHC 37.5 H, RDW 14.3, Plt Count 231, MPV 9.6, Gran % 73.5 H, Lymph % (Auto) 22.1, [place] % (Auto) 2.9, Eos % (Auto) 1.3 L, Baso % (Auto) 0.2, Gran # 9.52 H, Lymph # (Auto) 2.9, [place] # (Auto) 0.4, Eos # (Auto) 0.2, Baso # (Auto) 0.03 I have reviewed the lab results: Yes - RAD Interpretation Narrative RAD Interpretations (Text): 04/29/18 22:31 FINDINGS: Limitations: Motion artifact - mild. Lung bases: No acute findings. Mediastinum: Minimal mural thickening vs underdistention of distal esophagus. ABDOMEN: Liver: Unremarkable. No mass. Gallbladder and bile ducts: No calcified stones. No ductal dilation. Pancreas: No ductal dilation. No mass. Spleen: No splenomegaly. Adrenals: No mass. Kidneys and ureters: No mass. No hydronephrosis. Stomach and bowel: Segmental areas of mild mural thickening vs underdistention of large bowel. No associated inflammatory stranding. No obstruction. PELVIS: Appendix: Normal caliber. No definite inflammation. Bladder: Unremarkable. Reproductive: Unremarkable as visualized. ABDOMEN and PELVIS: Intraperitoneal space: Trace free fluid within pelvis. No free air. Bones/joints: No acute fracture. Soft tissues: Unremarkable. Vasculature: Unremarkable. No aneurysm. Lymph nodes: No pathologically enlarged lymph nodes. IMPRESSION: 1. Mild colitis versus underdistention. Clinical correlation is needed. 2. Incidental/non-acute findings are described above. Radiology Orders: 04/29/18 20:12 ABD & PELVIS IV CONTRAST ONLY [CT] Stat - Medication Orders Current Medication Orders: Sodium Chloride (Sodium Chloride 0.9%) 1,000 mls @ 100 mls/hr IV .Q10H [facility] Vancomycin HCl (Vancomycin 1gm) 1 gm in 250 mls @ 167 mls/hr IVPB Q12H [facility] PRN Reason: Protocol Piperacillin Sod/Tazobactam Sod (Zosyn 3.375 In Ns 100ml) 100 mls @ 200 mls/hr IVPB Q6 [facility] PRN Reason: Protocol Stop: 04/30/18 12:29 Ondansetron HCl (Zofran Inj) 4 mg IVP Q6H PRN PRN Reason: Nausea/Vomiting Pantoprazole Sodium (Protonix Inj) 40 mg IVP Q12 [facility] Last Admin: 04/30/18 00:22 Dose: 40 mg IVP Administration Document 04/30/18 00:22 RD (Rec: 04/30/18 00:22 RD [facility] [id number] Charges for Administration # of IVP Administrations 1 Discontinued Medications Diphenhydramine HCl (Benadryl) 25 mg IVP STAT STA Stop: 04/29/18 20:54 Last Admin: 04/29/18 21:02 Dose: 25 mg IVP Administration Document 04/29/18 21:02 CNR (Rec: 04/29/18 21:02 CNR [facility] [id number] Charges for Administration # of IVP Administrations 1 Haloperidol Lactate (Haldol) 0.5 mg IM STAT STA PRN Reason: Protocol Stop: 04/29/18 21:46 Last Admin: 04/29/18 22:06 Dose: 0.5 mg IM Administration Charges Document 04/29/18 22:06 CNR (Rec: 04/29/18 22:06 CNR [id number]) Injection Site MAR Injection Site Right Deltoid Charges for Administration # of IM Administrations 1 Famotidine (Pepcid 20mg/50ml Premix) 20 mg in 50 mls @ 100 mls/hr IVPB STAT STA Stop: 04/29/18 20:42 Last Admin: 04/29/18 20:20 Dose: 100 mls/hr eMAR Start Stop Document 04/29/18 20:20 CNR (Rec: 04/29/18 20:20 CNR [facility] [id number]) Intravenous Solution Start Date 04/29/18 Start Time 20:20 End Date 04/29/18 End time 20:50 Total Infusion Time 30 Sodium Chloride (Sodium Chloride 0.9%) 1,000 mls @ 999 mls/hr IV .Q1H1M STA Stop: 04/29/18 21:36 Last Admin: 04/29/18 20:41 Dose: 999 mls/hr eMAR Start Stop Document 04/29/18 20:41 CNR (Rec: 04/29/18 20:41 CNR [facility] [id number]) Intravenous Solution Start Date 04/29/18 Start Time 20:15 End Date 04/29/18 End time 21:15 Total Infusion Time 60 Sodium Chloride (Sodium Chloride 0.9%) 1,000 mls @ 999 mls/hr IV .Q1H1M STA Stop: 04/29/18 23:44 Last Admin: 07/22/18 22:53 Dose: 999 mls/hr eMAR Start Stop Document 04/29/18 22:53 CNR (Rec: 04/29/18 22:54 CNR [id number]) Intravenous Solution Start Date 04/29/18 Start Time 22:53 End Date 04/29/18 End time 23:53 Total Infusion Time 60 Sodium Chloride (Sodium Chloride 0.9%) 1,000 mls @ 999 mls/hr IV .Q1H1M STA Stop: 04/29/18 23:47 Last Admin: 04/30/18 00:22 Dose: 999 mls/hr eMAR Start Stop Document 04/30/18 00:22 RD (Rec: 04/30/18 00:22 [id number] Intravenous Solution Start Date 04/30/18 Start Time 00:22 End Date 04/30/18 End time 01:22 Total Infusion Time 60 Ketorolac Tromethamine (Toradol) 15 mg IVP STAT STA Stop: 04/29/18 20:17 Last Admin: 04/29/18 20:20 Dose: 15 mg MAR Pain Assessment Document 04/29/18 20:20 CNR (Rec: 04/29/18 20:21 CNR [facility] [id number] Pain Reassessment Is this a pain reassessment? No IVP Administration Document 04/29/18 20:20 CNR (Rec: 04/29/18 20:21 CNR [id number] Charges for Administration # of IVP Administrations 1 Lorazepam (Ativan) 1 mg IVP ONCE ONE PRN Reason: Protocol Stop: 04/29/18 20:20 Last Admin: 04/29/18 20:25 Dose: 1 mg IVP Administration Document 04/29/18 20:25 CNR (Rec: 04/29/18 20:26 CNR [id number] Charges for Administration # of IVP Administrations 1 Lorazepam (Ativan) 1 mg IVP ONCE ONE PRN Reason: Protocol Stop: 04/29/18 20:54 Last Admin: 04/29/18 21:02 Dose: 1 mg IVP Administration Document 04/29/18 21:02 CNR (Rec: 04/29/18 21:02 CNR [id number][facility] Charges for Administration # of IVP Administrations 1 Metoclopramide HCl (Reglan) 10 mg IVP STAT STA Stop: 04/29/18 22:46 Last Admin: 04/29/18 22:54 Dose: 10 mg IVP Administration Document 04/29/18 22:54 CNR (Rec: 04/29/18 22:54 CNR [id number]) Charges for Administration # of IVP Administrations 1 Ondansetron HCl (Zofran Inj) 4 mg IVP STAT STA Stop: 04/29/18 20:19 Last Admin: 04/29/18 20:20 Dose: 4 mg IVP Administration Document 04/29/18 20:20 CNR (Rec: 04/29/18 20:20 CNR [facility] [id number]) Charges for Administration # of IVP Administrations 1 Ondansetron HCl (Zofran Inj) 4 mg IVP STAT STA Stop: 04/29/18 22:31 Last Admin: 04/29/18 22:34 Dose: 4 mg IVP Administration Document 04/29/18 22:34 CNR (Rec: 04/29/18 22:35 CNR [id number]) Charges for Administration # of IVP Administrations 1 Disposition/Present on Arrival - Present on Arrival Any Indicators Present on Arrival: No History of DVT/PE: No History of Uncontrolled Diabetes: No Urinary Catheter: No History of Decub. Ulcer: No History Surgical Site Infection Following: None - Disposition Have Diagnosis and Disposition been Completed?: Yes Diagnosis: Intractable vomiting with nausea, Intractable abdominal pain Disposition: HOSPITALIZED Disposition Time: 23:05 Patient Plan: Admission Patient Problems: Current Active Problems Problem Status Onset Intractable abdominal pain Acute Intractable vomiting with nausea Acute Condition: STABLE
[2018-04-29 20:29] LABS: BASO # 0.03 K/mm3 (0.0-2.0); BASO % 0.2 % (0.0-3.0); EOS # 0.2 (0.0-0.7); EOS % 1.3 % (1.5-5.0); GRAN # 9.52 (1.4-6.5); GRAN % 73.5 % (50.0-68.0); HEMOGLOBIN 15.8 g/dL (14.0-18.0); LYMPH # 2.9 (1.2-3.4); LYMPH % 22.1 % (22.0-35.0); MEAN CORPUSCULAR HEMOGLOBIN 28.2 pg (25.0-35.0); MEAN CORPUSCULAR HGB CONC 37.5 g/dl (31.0-37.0); MEAN PLATELET VOLUME 9.6 fl (7.0-11.0); MONO # 0.4 (0.1-0.6); MONO % 2.9 % (1.0-6.0); RBC 5.61 10^6/uL (3.5-6.1); RED CELL DISTRIBUTION WIDTH 14.3 % (11.5-14.5); VENOUS BLOOD GAS BASE EXCESS -3.3 mmol/L (0.0-2.0); VENOUS BLOOD GAS PO2 233 mm/Hg (30-55); VENOUS BLOOD PH 7.43 (7.32-7.43)
[2018-04-29] MEDS ORDERED: Sodium Chloride 0.9% 1,000 ML IV STA ×3 (20:36→22:47)
[2018-04-29 20:41] LABS: ALB/GLOB RATIO 1.7 (1.1-1.8); ALT/SGPT 34 U/L (7-56); AST/SGOT 41 U/L (17-59); BLOOD UREA NITROGEN 10 mg/dL (7-21); CALCIUM 10.1 mg/dL (8.4-10.5); GFR AFRICAN-AMERICAN > 60; GFR NON-AFRICAN AMERICAN > 60; LIPASE 36 U/L (23-300)
[2018-04-29] MEDS ORDERED: DiphenhydrAMINE 50 mg/ml Inj IVP STA (20:53)
[2018-04-29] MEDS ORDERED: Iodixanol 320 MG/ML 100 ML BOTTLE IV ONE (21:03)
[2018-04-29] MEDS ORDERED: Iohexol 350 MG/100 ML VIAL ONE (21:03)
[2018-04-29 22:20] LABS: PH,URINE 7.5 (4.7-8.0); URINE BILIRUBIN NEGATIVE (NEGATIVE); URINE BLOOD NEGATIVE (NEGATIVE); URINE GLUCOSE (UA) NEGATIVE (NEGATIVE); URINE LEUKOCYTE ESTERASE NEGATIVE Leu/uL (NEGATIVE); URINE PROTEIN 30 mg/dL (<30 mg/dL); URINE UROBILINOGEN 0.2 E.U./dL (<1 E.U./dL)
[2018-04-29 22:28] LABS: URINE APPEARANCE CLEAR (CLEAR); URINE COLOR YELLOW (YELLOW)
[2018-04-29 22:32] LABS: URINE BACTERIA FEW (NEG); URINE RBC NEGATIVE /hpf (0-2)
[2018-04-29 22:45] LABS: BARBITURATES, UR NEGATIVE (NEGATIVE); BENZODIAZEPINES, UR NEGATIVE (NEGATIVE); OPIATES, UR NEGATIVE (NEGATIVE); PHENCYCLIDINE, UR NEGATIVE (NEGATIVE)
[2018-04-29 23:15] LABS: VENOUS BLOOD GAS PO2 135 mm/Hg (30-55); VENOUS BLOOD PH 7.28 (7.32-7.43)
[2018-04-30] MEDS ORDERED: Vancomycin 1gm in NS 250ml 1 GM/250 ML BAG IVPB SCH (00:15)
[2018-04-30] MEDS ORDERED: Sodium Chloride 0.9% 1,000 ML IV SCH ×2 (00:15→07:30)
--- NOTE | 2018-04-30 00:28 | CP.PCM.HP ---
History of Present Illness - History of Present Illness History of Present Illness: Roman Brown PGY-1, Internal Medicine Resident, History and Physical for Dr Womack. CC: "I've been vomiting" HPI: Pt is a 22 yo male with a PMH of pancreatitis, opiod use disorder, and alcohol use disorder who presents to the ED complaining of intractable nausea, vomiting and belching since yesterday. Pt reports having feeling feverish and having chills during this time. He states that he has 9/10 burning upper abdominal pain. Pt reports vomiting with a minimal about of blood. Pt reports a history of percocet use, which he claims he quit 3 months ago and only used the drug for 1.5 months. He states that the pain is alleviated by laying on his stomach and worsened by sitting up. He states he is unable to eat because of the vomiting. Pt states he last used marijuana today. 12 point ROS asked and pertinent positives and negatives added to HPI. PMH: Pancreatitis, opiod use disorder, alcohol use disorder PSH: none FH: Father- 50yo, no significant medical history. Mother- 49yo, no significant medical history. Son- 4yo asthma. Social: Opiod use disorder, alcohol use disorder, denies tobacco. Works at [employer] Home meds: none Allergies: NKDA Labs: CBC: WBC 13 Coag: PT 12.8, INR 1.12, PTT 22.2 Blood Gas: VBG pCO2 7.28, Lactate 3.7 -> 4.5 CMP: Cr 0.7 UA: Protein 30, Ketones 15 Toxicology: Cannabinoids POSITIVE, Opiates NEGATIVE Imaging: CXR: ordered, not yet read CT A/P: Mild colitis versus underdistention. Clinical correlation is needed. Present on Admission - Present on Admission Any Indicators Present on Admission: No Review of Systems - Review of Systems Review of Systems: asked and added to HPI Past Patient History - Infectious Disease Hx of Infectious Diseases: None - Past Social History Smoking Status: Light Smoker < 10 Cigarettes Daily - CARDIAC Hx Cardiac Disorders: No - PULMONARY Hx Respiratory Disorders: No - NEUROLOGICAL Hx Neurological Disorder: No - HEENT Hx HEENT Problems: No - RENAL Hx Chronic Kidney Disease: No - ENDOCRINE/METABOLIC Hx Endocrine Disorders: No - HEMATOLOGICAL/ONCOLOGICAL Hx Blood Disorders: No - INTEGUMENTARY Hx Dermatological Problems: Yes Other/Comment: Abcess removed from R arm - MUSCULOSKELETAL/RHEUMATOLOGICAL Hx Falls: No - GASTROINTESTINAL Hx Gastrointestinal Disorders: Yes (colitis) Hx Pancreatitis: Yes - GENITOURINARY/GYNECOLOGICAL Hx Genitourinary Disorders: No - PSYCHIATRIC Hx Psychophysiologic Disorder: No Hx Substance Use: Yes (jose mariafátima) - SURGICAL HISTORY Other/Comment: Abcess removal from R arm - ANESTHESIA Hx Anesthesia: Yes Hx Anesthesia Reactions: No Hx Malignant Hyperthermia: No Meds Allergies/Adverse Reactions: Allergies Allergy/AdvReac Type Severity Reaction Status Date / Time No Known Allergies Allergy Verified 04/29/18 20:02 Physical Exam - Constitutional Additional comments: pt laying on side, belching and dry heaving - Head Exam Head Exam: ATRAUMATIC, NORMOCEPHALIC - Eye Exam Eye Exam: EOMI, Normal appearance - Respiratory Exam Respiratory Exam: Clear to Auscultation Bilateral, NORMAL BREATHING PATTERN - Cardiovascular Exam Cardiovascular Exam: REGULAR RHYTHM, RRR, +S1, +S2 - GI/Abdominal Exam GI & Abdominal Exam: Normal Bowel Sounds, Soft, Tenderness - Extremities Exam Extremities exam: Positive for: normal inspection. Negative for: calf tenderness, pedal edema, tenderness - Neurological Exam Neurological exam: Alert, CN II-XII Intact, Oriented x3 - Skin Skin Exam: Normal Color Results - Vital Signs Recent Vital Signs: Last Vital Signs Temp 98.1 F 04/29/18 20:02 Pulse 85 04/29/18 23:06 Resp 16 04/29/18 23:06 BP 123/77 04/29/18 23:06 Pulse Ox 99 04/29/18 23:06 - Labs Result Diagrams: 04/29/18 20:15 04/29/18 20:15 Assessment & Plan - Assessment and Plan (Free Text) Assessment: Pt is a 22 yo male with a PMH of pancreatitis, opiod use disorder, and alcohol use disorder who presents to the ED complaining of intractable nausea, vomiting and belching since yesterday. Plan: Intractable Vomiting, secondary to possible opiod withdrawal -started Zofran 4mg q4 for nausea -started IVF NS 100ml/hr -started Vanc 1g IVPB q12 -started Zosyn 3.375 q6 IVPB -pt given diphenhydramine, haloperiodol, ativan in ED -keep pt NPO -GI consult Dr Lowe, appreciate recommendations -ID consult Dr Grullon, appreciate recommendations -continue to follow CMP -continue to follow CBC -ordered Procal levels -Blood culture, awaiting results GI ppx -started protonix 40mg IVP DVT ppx -started SCDs Pt seen, examined, and assessent and plan discussed with Dr Womack. Roman Brown PGY-1.
[2018-04-30 01:13] LABS: INR 1.12 (0.93-1.08); PARTIAL THROMBOPLASTIN TIME 22.2 Seconds (25.1-36.5); PROTHROMBIN TIME 12.8 SECONDS (9.4-12.5)
[2018-04-30 01:45] VITALS: BMI 21.1
[2018-04-30] MEDS: Piperacillin/Tazobact 3.375 gm 100 ML IVPB SCH ×3 (05:16→17:35)
[2018-04-30 07:35] LABS: BASO # 0.02 K/mm3 (0.0-2.0); BASO % 0.1 % (0.0-3.0); GRAN # 17.37 (1.4-6.5); GRAN % 90.2 % (50.0-68.0); LYMPH # 1.5 (1.2-3.4); LYMPH % 7.5 % (22.0-35.0); MEAN CELL VOLUME 74.1 fl (80.0-105.0); MEAN CORPUSCULAR HGB CONC 37.7 g/dl (31.0-37.0); MEAN PLATELET VOLUME 9.3 fl (7.0-11.0); MONO # 0.4 (0.1-0.6); MONO % 2.2 % (1.0-6.0); PLATELET COUNT 201 10^3/uL (120.0-450.0); RBC 4.83 10^6/uL (3.5-6.1); RED CELL DISTRIBUTION WIDTH 14.3 % (11.5-14.5); WHITE BLOOD COUNT 19.3 10^3/ul (4.5-11.0)
[2018-04-30 07:39] LABS: HEMOGLOBIN 13.5 g/dL (14.0-18.0)
[2018-04-30 07:50] LABS: ALB/GLOB RATIO 1.6 (1.1-1.8); ALBUMIN 4.3 g/dL (3.0-4.8); ALT/SGPT 28 U/L (7-56); AST/SGOT 37 U/L (17-59); BILIRUBIN,DIRECT 0.2 mg/dL (0.0-0.4); BLOOD UREA NITROGEN 8 mg/dL (7-21); GFR AFRICAN-AMERICAN > 60; GFR NON-AFRICAN AMERICAN > 60
[2018-04-30 08:13] LABS: LYMPHOCYTE 4 % (22.0-35.0); MONOCYTE 2 % (1.0-6.0); NEUTROPHIL 94 % (50.0-70.0)
[2018-04-30 08:14] LABS: HYPERCHROMIA 1; MICROCYTOSIS SLIGHT; TARGET CELLS SLIGHT
[2018-04-30 08:15] LABS: PLATELET ESTIMATE NORMAL (NORMAL)
--- NOTE | 2018-04-30 09:06 | RAD ---
Date of service: 04/30/2018 HISTORY: sepsis COMPARISON: 03/02/2018 FINDINGS: LUNGS: No active pulmonary disease. PLEURA: No significant pleural effusion identified, no pneumothorax apparent. CARDIOVASCULAR: Normal. OSSEOUS STRUCTURES: No significant abnormalities. VISUALIZED UPPER ABDOMEN: Normal. OTHER FINDINGS: None. IMPRESSION: No active disease.
--- NOTE | 2018-04-30 10:06 | CT ---
Date of service: 04/29/2018 PROCEDURE: CT Abdomen and Pelvis without intravenous contrast HISTORY: epigastric pain COMPARISON: 5.22.18. TECHNIQUE: Technique. Contrast dose: Radiation dose: Total exam DLP = mGy-cm. This CT exam was performed using one or more of the following dose reduction techniques: Automated exposure control, adjustment of the mA and/or kV according to patient size, and/or use of iterative reconstruction technique. FINDINGS: LOWER THORAX: Unremarkable. LIVER: Unremarkable. No gross lesion or ductal dilatation. GALLBLADDER AND BILE DUCTS: Unremarkable. PANCREAS: Unremarkable. No gross lesion or ductal dilatation. SPLEEN: Unremarkable. ADRENALS: Unremarkable. No mass. KIDNEYS AND URETERS: Unremarkable. No hydronephrosis. No solid mass. VASCULATURE: Unremarkable. No aortic aneurysm. BOWEL: Unremarkable. No obstruction. No gross mural thickening. APPENDIX: Unremarkable. Normal appendix. PERITONEUM: Unremarkable. No free fluid. No free air. LYMPH NODES: Unremarkable. No enlarged lymph nodes. BLADDER: Unremarkable. REPRODUCTIVE: Unremarkable. BONES: No acute fracture. OTHER FINDINGS: None. IMPRESSION: Unremarkable non contrast enhanced CT of the abdomen and pelvis.
[2018-04-30] MEDS: Magnesium 2 gm/50 ml NS 2 GM/50 ML BAG IVPB SCH ×2 (10:44→14:00)
[2018-04-30 12:30] LABS: BASO # 0.03 K/mm3 (0.0-2.0); BASO % 0.1 % (0.0-3.0); GRAN # 20.05 (1.4-6.5); GRAN % 87.7 % (50.0-68.0); HEMOGLOBIN 14.1 g/dL (14.0-18.0); LYMPH % 8.6 % (22.0-35.0); MEAN CELL VOLUME 74.9 fl (80.0-105.0); MEAN CORPUSCULAR HEMOGLOBIN 28.1 pg (25.0-35.0); MEAN CORPUSCULAR HGB CONC 37.5 g/dl (31.0-37.0); MONO # 0.8 (0.1-0.6); MONO % 3.6 % (1.0-6.0); RBC 5.02 10^6/uL (3.5-6.1); RED CELL DISTRIBUTION WIDTH 14.4 % (11.5-14.5); WHITE BLOOD COUNT 22.9 10^3/ul (4.5-11.0)
--- NOTE | 2018-04-30 14:34 | CP.PCM.CON ---
History of Present Illness - History of Present Illness History of Present Illness: 22 year old male with PMH of pancreatitis, history of polysubstance abuse ( opioids, alcohol) [place] [facility] [place] of epigastric pain associated with bilious vomiting for the past day. He noted feeling feverish but no documented fever was noted on this admission. He denies eating anything out of the ordinary , no diarrhea or constipation, no headache or dizziness, no sore throat, no cough or rhinorrhea, no chest pain or palpitations, no SOB, no dysuria or hematuria. He is noted to have leukocytosis and Infectious Diseases consult is requested to further evaluate and manage. Review of Systems - Review of Systems All systems: reviewed and no additional remarkable complaints except (as per HPI ) Past Patient History - Infectious Disease Hx of Infectious Diseases: None - Past Social History Smoking Status: Light Smoker < 10 Cigarettes Daily - CARDIAC Hx Cardiac Disorders: No - PULMONARY Hx Respiratory Disorders: No - NEUROLOGICAL Hx Neurological Disorder: No - HEENT Hx HEENT Problems: No - RENAL Hx Chronic Kidney Disease: No - ENDOCRINE/METABOLIC Hx Endocrine Disorders: No - HEMATOLOGICAL/ONCOLOGICAL Hx Blood Disorders: No - INTEGUMENTARY Hx Dermatological Problems: Yes Other/Comment: Abcess removed from R arm - MUSCULOSKELETAL/RHEUMATOLOGICAL Hx Falls: No - GASTROINTESTINAL Hx Gastrointestinal Disorders: Yes (colitis) Hx Pancreatitis: Yes - GENITOURINARY/GYNECOLOGICAL Hx Genitourinary Disorders: No - PSYCHIATRIC Hx Psychophysiologic Disorder: No Hx Substance Use: Yes (marijuanna) - SURGICAL HISTORY Other/Comment: Abcess removal from R arm - ANESTHESIA Hx Anesthesia: Yes Hx Anesthesia Reactions: No Hx Malignant Hyperthermia: No Meds Allergies/Adverse Reactions: Allergies Allergy/AdvReac Type Severity Reaction Status Date / Time No Known Allergies Allergy Verified 04/29/18 20:02 - Medications Medications: Current Medications Sodium Chloride (Sodium Chloride 0.9%) 1,000 mls @ 100 mls/hr IV .Q10H [facility] Last Admin: 04/30/18 01:15 Dose: Not Given Vancomycin HCl (Vancomycin 1gm) 1 gm in 250 mls @ 167 mls/hr IVPB Q12H [facility] PRN Reason: Protocol Last Admin: 04/30/18 00:54 Dose: 167 mls/hr Piperacillin Sod/Tazobactam Sod (Zosyn 3.375 In Ns 100ml) 100 mls @ 200 mls/hr IVPB Q6 [facility] PRN Reason: Protocol Stop: 04/30/18 12:29 Last Admin: 04/30/18 05:16 Dose: 200 mls/hr Metoclopramide HCl (Reglan) 10 mg IVP QID PRN PRN Reason: Nausea/Vomiting Last Admin: 04/30/18 04:47 Dose: 10 mg Ondansetron HCl (Zofran Inj) 4 mg IVP Q6H PRN PRN Reason: Nausea/Vomiting Last Admin: 04/30/18 01:31 Dose: 4 mg Pantoprazole Sodium (Protonix Inj) 40 mg IVP Q12 [facility] Last Admin: 04/30/18 00:22 Dose: 40 mg Physical Exam - Constitutional Appears: Chronically Ill - Head Exam Head Exam: NORMAL INSPECTION - Respiratory Exam Respiratory Exam: Decreased Breath Sounds - Cardiovascular Exam Cardiovascular Exam: +S1, +S2 - GI/Abdominal Exam GI & Abdominal Exam: Soft, Tenderness (mild, epigastric). absent: Diminished Bowel Sounds, Distended, Firm, Guarding, Rigid Results - Vital Signs Recent Vital Signs: Last Vital Signs Temp 97.4 F L 04/30/18 01:15 Pulse 81 04/30/18 01:15 Resp 18 04/30/18 01:15 BP 136/83 04/30/18 01:15 Pulse Ox 98 04/30/18 01:08 - Labs Result Diagrams: 04/30/18 10:42 04/30/18 07:00 Labs: Laboratory Results - last 24 hr 04/30/18 04/30/18 00:44 00:44 PT 12.8 H INR 1.12 H APTT 22.2 L Lactic Acid 3.5 H Assessment & Plan - Assessment and Plan (Free Text) Plan: Assessment Leukocytosis probably from epigastric pain, consider alcoholic gastritis R/O intra-abdominal infection pancreatitis history of polysubstance abuse (opioids, alcohol) Plan Started Zosyn pending blood cx, CT A/P and will monitor clinically and trend WBC count will check HIV test as well
[2018-05-01] MEDS: Piperacillin/Tazobact 3.375 gm 100 ML IVPB SCH ×3 (01:23→11:09)
[2018-05-01 06:46] LABS: BASO # 0.03 K/mm3 (0.0-2.0); BASO % 0.2 % (0.0-3.0); EOS % 0.1 % (1.5-5.0); GRAN # 13.22 (1.4-6.5); GRAN % 80.5 % (50.0-68.0); HEMOGLOBIN 14.3 g/dL (14.0-18.0); LYMPH # 2.4 (1.2-3.4); LYMPH % 14.4 % (22.0-35.0); MEAN CELL VOLUME 74.2 fl (80.0-105.0); MEAN CORPUSCULAR HEMOGLOBIN 27.9 pg (25.0-35.0); MEAN CORPUSCULAR HGB CONC 37.6 g/dl (31.0-37.0); MEAN PLATELET VOLUME 9.7 fl (7.0-11.0); MONO # 0.8 (0.1-0.6); MONO % 4.8 % (1.0-6.0); RBC 5.12 10^6/uL (3.5-6.1); RED CELL DISTRIBUTION WIDTH 14.3 % (11.5-14.5); WHITE BLOOD COUNT 16.4 10^3/ul (4.5-11.0)
[2018-05-01 07:10] LABS: ALB/GLOB RATIO 1.6 (1.1-1.8); ALBUMIN 4.2 g/dL (3.0-4.8); ALT/SGPT 37 U/L (7-56); AST/SGOT 42 U/L (17-59); BLOOD UREA NITROGEN 12 mg/dL (7-21); CALCIUM 8.6 mg/dL (8.4-10.5); GFR AFRICAN-AMERICAN > 60; GFR NON-AFRICAN AMERICAN > 60
--- NOTE | 2018-05-01 07:54 | HP ---
HISTORY OF PRESENT ILLNESS: The patient is a 22-year-old male admitted multiple times to [facility] since 12/2017, presented with similar complaints of severe abdominal pain with nausea and vomiting started this morning. The patient came to the emergency room by the EMS ambulance. According to the physician personal assistant evaluation in the emergency room, complaining of abdominal pain and vomiting. According to the medical recruiter evaluation, the patient complained of nausea, vomiting and belching for the last 24 hours, feeling some subjective fever, pain of the upper abdomen 9/10. The patient had some vomiting with little bit of blood in the vomitus. The patient was examined. The patient's vital signs, diagnostic reports, imaging reports reviewed. Please refer to the history and physical examination by the medical recruiter for further details of the history and physical examination. IMPRESSION: 1. Recurrent abdominal pain with intractable nausea and vomiting. 2. Abdominal pain associated with nausea, vomiting, and belching. 3. Questionable systemic inflammatory response syndrome. 4. Normocytic anemia. 5. Lymphopenia. 6. Lactic acidosis. 7. Hypokalemia. 8. Hyperglycemia. 9. Hypomagnesemia. 10. Proteinuria, ketonuria, bacteriuria. 11. Persistent marijuana use with urine drug screen positive for cannabinoids. 12. Marijuana-induced hyperemesis. 13. Minimal mural thickening versus underdistention of distal esophagus. 14. Colonic segmental areas of mild mural thickening versus underdistention. 15. Leukocytosis with granulocytosis and lactic acidosis. 16. Questionable marijuana withdrawal. 17. History of nicotine, alcohol, marijuana, opiate, and narcotic abuse and dependence. 18. History of symptomatic narcotic, opiates, marijuana withdrawal with symptoms of abdominal pain, cramping, nausea, and vomiting. 19. History of transaminitis, history of Helicobacter pylori gastritis, history of left descending colon diverticulitis versus epiploic appendagitis, history of transient hypertension, history of descending colon diverticulitis versus colitis and infiltration of the PLAN: At this time, the patient was admitted to [facility]. Serial labs, serial lactic acid, serial CBCs ordered. Consultation, Gastroenterology and Infectious Disease. Procalcitonin level pending. The patient is started on Ativan 0.5 mg IV every 6 hours p.r.n., magnesium sulfate x2 given, potassium riders x2 given, Protonix 40 IV every 12, Reglan 10 mg IV every 6, IV fluid at 0.9 normal saline at 125 mL an hour, Zofran 4 IV every 4 p.r.n., Zosyn 3.375 g IV every 6 hours. Incentive spirometry, oxygen, n.p.o. diet, out of bed, SCDs, VÍCTOR stockings. The patient was also put on GI and DVT prophylaxes. At present, the patient's further management will be dependent upon the patient's clinical condition, hemodynamic status, and as per the patient's response to therapeutic intervention, as per the patient's diagnostic test results and as per Infectious Disease and Gastroenterology evaluation. The patient was counseled about cessation of alcohol use, cessation of smoking, cessation of marijuana use. Dictated and electronically signed, not read. Ron Womack MD
[2018-05-01 08:22] VITALS: O2SAT 100
--- NOTE | 2018-05-01 10:55 | CP.PCM.PN ---
Subjective - Date & Time of Evaluation Date of Evaluation: 05/01/18 Time of Evaluation: 07:50 - Subjective Subjective: GI Progress Note for Dr. Charan Trujillo, PGY-3 IM Patient seen and examined at bedside. ROS/PE limited. Somnolent but arousable , but non-cooperative with exam. Refusing to open eyes, will only mumble few word answers with repeated questioning, reports just wants to be left alone to rest. Reports still having emesis, reports bucket next to bed, but on review, only appears to be some scattered yellow mucous in bucket. Patient reported episode of hematemesis on admission, but no hematemesis observed or reported by staff since admission. Objective - Vital Signs/Intake and Output Vital Signs (last 24 hours): Temp Pulse Resp BP Pulse Ox 98.4 F 64 20 107/70 100 05/01/18 06:00 05/01/18 06:00 05/01/18 06:00 05/01/18 06:00 05/01/18 06:00 Intake and Output: 05/01/18 05/01/18 06:59 18:59 Intake Total 120 Output Total 1300 Balance -1180 - Medications Medications: Current Medications Heparin Sodium (Porcine) (Heparin) 5,000 units SC Q8 CLARISSE PRN Reason: Protocol Last Admin: 05/01/18 05:28 Dose: 5,000 units Piperacillin Sod/Tazobactam Sod (Zosyn 3.375 In Ns 100ml) 100 mls @ 200 mls/hr IVPB Q6 CLARISSE PRN Reason: Protocol Stop: 05/05/18 06:01 Last Admin: 05/01/18 05:28 Dose: 200 mls/hr Sodium Chloride (Sodium Chloride 0.9%) 1,000 mls @ 125 mls/hr IV .Q8H CLARISSE Last Admin: 04/30/18 09:04 Dose: 125 mls/hr Lorazepam (Ativan) 0.5 mg IVP Q6H PRN; Protocol PRN Reason: Anxiety Last Admin: 05/01/18 04:37 Dose: 0.5 mg Metoclopramide HCl (Reglan) 10 mg IVP QID CLARISSE Last Admin: 05/01/18 09:29 Dose: 10 mg Ondansetron HCl (Zofran Inj) 4 mg IVP Q4H PRN PRN Reason: Nausea/Vomiting Last Admin: 05/01/18 09:29 Dose: 4 mg Pantoprazole Sodium (Protonix Inj) 40 mg IVP Q12 CLARISSE Last Admin: 05/01/18 09:29 Dose: 40 mg - Labs Labs: 05/01/18 06:20 05/01/18 06:20 PT 12.8 SECONDS (9.4-12.5) H 04/30/18 00:44 INR 1.12 (0.93-1.08) H 04/30/18 00:44 APTT 22.2 Seconds (25.1-36.5) L 04/30/18 00:44 - Constitutional Appears: Non-toxic, No Acute Distress, Other (somnolent, arousable but rapidly returns to somnolence) - Head Exam Head Exam: ATRAUMATIC, NORMAL INSPECTION, NORMOCEPHALIC - Eye Exam Additional comments: winces when awakening with loud verbal or physical stimuli, but refusing to open his eyes - Respiratory Exam Respiratory Exam: absent: Decreased Breath Sounds, Rales, Rhonchi, Wheezes, Respiratory Distress Additional comments: laying on stomach, refusing to turn over due to pain lungs CTAB without wheezes/rales/ronchi on auscultation posteriorly - Cardiovascular Exam Additional comments: Unable to auscultate heart, laying on stomach and refusing to turn over due to pain - GI/Abdominal Exam Additional comments: unable to assess, pt laying on stomach and refusing to turn over due to worse pain when laying on back or sitting up, only lying on stomach alleviates pain ( as per admission notes) - Back Exam Back Exam: NORMAL INSPECTION - Neurological Exam Additional comments: somnolent but arousable, awake but not alert after awakening, trying to go back to sleep, minimal spontaneous movements appreciated, not following most commands - Skin Skin Exam: Dry, Intact, Warm Assessment and Plan - Assessment and Plan (Free Text) Assessment: This is a 22 yo M with PMH of alcohol abuse, opioid use, and pacreatitis who presented to [facility] with uncontrollable nausea, emesis, diarrhea, and reported episodes of hematemesis. GI was consulted for the above in the setting of elevated WBCs. Plan: Ddx: viral enteritis vs collitis vs opioid and/or EtOH withdrawal vs Cannabinoid hyperemesis syndrome -CT abd/pelvis with IV contrast read as minimal mural thickening/colitis vs under-distension of large bowel by VRad, no acute issue as per in-house radiology -Alcohol and opiates negative on admission screening, positive for Cannabinoids -Leukocytosis elevated overnight, now improved (13 -> 19.3 -> 22.9 -> 16.4 today ), continue IV abx regimen as per ID, f/u cultures -If leukocytosis worsens tomorrow, then would consider repeat CT abd/pelvis with PO contrast to further assess the GI tract -Reported episode of hematemesis as outpt, none witnessed since admission -Continue PPI, Reglan + PRN zofran for Nausea/Vomiting, IVF for adequate rehydration -Currently NPO, can consider trialling CLD when N/V better controlled Will discuss with attending, Dr. Farrar (covering for Dr. Lowe).
--- NOTE | 2018-05-01 12:09 | PN ---
DATE: 05/01/2018 SUBJECTIVE: The patient was seen again in room 564, bed 2. The patient is lying in the bed, comfortable, sleeping. Overnight nurse's notes were reviewed. The patient had episodic anxiety yesterday. The patient required p.r.n. Zofran. The patient rested mostly in the bed overnight. The patient had dry heaving. PHYSICAL EXAMINATION: VITAL SIGNS: In the last 24-40 hours, T-max is 99.8 down to 98.4, heart rate 64-73, blood pressure 107/70, 135/90. This morning blood pressure 107/70, respiration 20, O2 sat 100%. HEENT: Head: Normocephalic, atraumatic. HEENT examination shows pinkish conjunctivae. Dry oral mucosa. No neck rigidity. Chest: Symmetrical. LUNGS: Shows no rales, crackles or wheezing. CARDIOVASCULAR: S1 and S2, regular rhythm. No audible murmur, gallop or rub. ABDOMEN: Positive bowel sound. Positive voluntary guarding. No rebound tenderness. No costovertebral angle tenderness. GENITALIA: Male. RECTAL: Deferred. EXTREMITIES: Shows no pitting edema, no calf tenderness, no Homans' sign. MUSCULOSKELETAL: Shows a body mass index of 21. Cranial nerves II-XII intact. Gait examination is not tested. NEUROLOGIC: Without any gross deficits. DIAGNOSTICS: On 05/01/2018: WBC count is down to 16.4, hemoglobin and hematocrit 14.3 and 38, platelets 200. Granulocytes 80% segs. The patient's chemistry shows sodium 137, potassium 3.8, chloride 105, CO2 21, anion gap 15, BUN 12, creatinine 0.7, GFR greater than 60, glucose 110. LFTs are normal. The patient is seen by Infectious Disease. Their recommendations are noted. IMPRESSION: 1. Questionable and possible systemic inflammatory response syndrome. 2. Leukocytosis with granulocytosis. 3. Lymphopenia. 4. Lactic acidosis (resolving). 5. Hypokalemia. 6. Hypomagnesemia. 7. Ketonuria, proteinuria, bacteriuria. 8. Active marijuana use with urine drug screen positive for cannabinoids. 9. Poor compliance. 10. Mild mural thickening versus underdistention of distal esophagus. 11. Colonic segmental area of mild mural thickening versus underdistention. 12. Trace pelvic fluid. PLAN AT THIS TIME: The patient is to be continued on n.p.o. diet as per GI. The patient has been ordered serial labs. HIV results are pending. CURRENT CONSULTATION: Gastroenterology and Infectious Disease. CURRENT MEDICATIONS: Ativan 0.5 mg IV every 6 p.r.n., heparin 5000 subcu every 8 for DVT prophylaxis, nicotine patch 21 mg daily, Protonix 40 mg IV every 12, Reglan 10 mg IV q.i.d., IV fluid 0.9 normal saline at 125 mL an hour, Zofran 4 mg IV every 4 p.r.n., Zosyn 3.375 g IV every 6 hours. Spirometry ordered, n.p.o. diet ordered. Out of bed, SCDs, VÍCTOR stockings ordered. The patient counseled. Dictated and electronically signed, not read. Ron Womack MD
--- NOTE | 2018-05-01 12:25 | DS ---
FINAL PROGRESS NOTE AND DISCHARGE SUMMARY DATE: 04/30/2018 SUBJECTIVE: The patient is seen lying in the bed in room 564, bed 2. OBJECTIVE: GENERAL: The patient appears to be comfortable, sleeping. The patient is lying in the bed. VITAL SIGNS: The patient's overnight vital signs were noted. T-max 98.1 to 98.9; heart rate 81, 69, 77; blood pressure in the last 24 hours 124/62, 136/83, 126/79; respiration 18, O2 sat 98%. HEENT: Head examination: Normocephalic, atraumatic. HEENT examination shows pinkish conjunctivae. Dry oral mucosa. No neck rigidity. CHEST: Symmetrical. LUNGS: Shows no rales, crackles or wheezing. CARDIOVASCULAR: S1, S2. Regular rhythm. ABDOMEN: Soft. Positive voluntary guarding. GENITALIA: Male. RECTAL: Deferred. EXTREMITIES: Shows no pitting edema, no calf tenderness, no Kaycee's sign. Motor strength is 5/5 in upper and lower extremity. Gait examination is not tested. SKIN: Intact. PSYCHIATRIC: Examination negative. DIAGNOSTICS: 04/30/2018, WBC count has gone up from 19.3 to 22.9, hemoglobin and hematocrit 13.5 and 35.8 and 14.1 and 37.8, platelets 201,000. Granulocytes 94% segs. Repeat chemistry shows glucose of 141, potassium 3.5, chloride 108, CO2 20, anion gap 16. BUN 8, creatinine 0.7. GFR greater than 60. Glucose 138, lactic acid is 3.5 and 3. Magnesium 1.5. LFTs are normal. Procalcitonin level is negative at 0.05. Urine drug screen positive for cannabinoids. Chest x-ray was negative. FINAL IMPRESSION AND PLAN & DISCHARGE DIAGNOSES: 1. Leukocytosis with granulocytosis. 2. Possible gastritis, etiology undetermined. 3. Polysubstance abuse and dependence. 4. Questionable systemic inflammatory response syndrome. 5. Lactic acidosis. 6. Hypokalemia. 7. Hyperglycemia. 8. Hypomagnesemia. 9. Trace proteinuria, ketonuria, bacteriuria. 10. Urine drug screen positive for cannabinoids. 11. History of alcohol and nicotine abuse and dependence. 12. Intractable nausea and vomiting secondary to marijuana hyperemesis syndrome. 13. Active marijuana abuse with marijuana-induced hyperemesis syndrome. 14. History of poor compliance. PLAN: At this time, the patient has been ordered serial labs, repeat LFTs, magnesium, lactic acid; HIV results pending. Blood cultures, final results pending. Gastroenterology, Infectious Disease evaluation pending. The patient is on an Ativan 0.5 mg IV every 6 hours p.r.n., heparin 5000 subcu every 8 hours for DVT prophylaxis, nicotine patch 21 mg daily, Protonix 40 mg IV every 12 hours, Reglan 10 mg IV every 6 hours, IV fluid started at 0.9 at 125 mL/hour, Zofran 4 mg IV every 4 hours p.r.n., Zosyn 3.375 g IV every 6 hours. The patient is on n.p.o. diet. The patient has been ordered out of bed, VÍCTOR dougherty, SCDs. The patient is counseled about cessation of smoking, alcohol, drug use, etc. at length. All questions concerned answered. PATIENT SIGNED OUT AMA, DESPITE MY ADVISE NOT TO SIGN OUT AMA. PATIENT EXPLAINED ALL RISKS AND CONSEQUENCES OF SIGNING OUT AGAINST MEDICAL ADVISE. Dictated and electronically signed, not read. Ron Womack MD MTDAlicia
[2018-05-01 14:40] VITALS: BP 126/71; PULSE 59; RESP 18; TEMP 97.6
--- NOTE | 2018-05-03 08:58 | PN ---
DATE: 05/01/2018 SUBJECTIVE: Patient was seen yesterday earlier. Patient is with abdominal pain. No nausea or vomiting. PHYSICAL EXAMINATION: VITAL SIGNS: Temperature 98, blood pressure 100/60, respiratory rate 18. HEENT: Unremarkable. NECK: Supple. LUNGS: Decreased breath sounds. HEART: Normal S1 and S2. ABDOMEN: Soft, nontender. ASSESSMENT AND PLAN: This is a 22-year-old male with epigastric pain, the etiology of which is unclear. This was noticed from 05/01/2018. Later at night, patient signed out against medical advice. oJnathan Grullon MD
== END 2018-05-01 14:55 | disposition left against medical advice (07) | DRG 392 ==
LOC: ED 19:57 → ERH 23:05 → 5RNO 04-30 01:14 → OBSVTOIN 05-01 10:18
PROVIDERS: ADMIT Internal Medicine; ATTEND Internal Medicine
DX: R10.13 Epigastric pain (principal); E87.2 Acidosis; K92.0 Hematemesis; R65.10 Systemic inflammatory response syndrome (SIRS) of non-infectious origin without acute organ dysfunction; R11.2 Nausea with vomiting, unspecified; D64.9 Anemia, unspecified; D72.810 Lymphocytopenia; E83.42 Hypomagnesemia; E87.6 Hypokalemia; F10.10 Alcohol abuse, uncomplicated; F12.10 Cannabis abuse, uncomplicated; F41.9 Anxiety disorder, unspecified; Z87.19 Personal history of other diseases of the digestive system; Z86.19 Personal history of other infectious and parasitic diseases; F17.210 Nicotine dependence, cigarettes, uncomplicated; R73.9 Hyperglycemia, unspecified; K29.70 Gastritis, unspecified, without bleeding; F19.10 Other psychoactive substance abuse, uncomplicated; R40.2412 Glasgow coma scale score 13-15, at arrival to emergency department; R80.9 Proteinuria, unspecified; R82.71 Bacteriuria; R82.4 Acetonuria; D72.829 Elevated white blood cell count, unspecified

== ENCOUNTER 2018-05-01 18:39 | Inpatient (IN) | payer BC ==
[2018-05-01 18:43] VITALS: BMI 21.9
[2018-05-01] MEDS ORDERED: Sodium Chloride 0.9% 1,000 ML IV STA ×2 (19:44→22:40)
--- NOTE | 2018-05-01 19:59 | ED PDOC ---
Arrival/HPI - General Chief Complaint: Abdominal Pain Time Seen by Provider: 05/01/18 18:50 Historian: Patient - History of Present Illness Narrative History of Present Illness (Text): 05/01/18 19:54 22 year old male, whose past medical history includes pancreatitis, poly- substance abuse, and recurrent episodes of abdominal pain, who presents to the emergency department complaining of abdominal pain and nausea today. Patient was recently admitted for upper abdominal pain, nausea, vomiting, and leukocytosis. Patient was being treated for SIRS. Patient signed out AMA this morning, however, pain has been recurrent since leaving. Patient denies any fever, chills, chest pain, shortness of breath, vomiting, diarrhea, back pain, neck pain, headache, dizziness, trauma/injury, suicidal/homicidal ideation or any other complaints. Time/Duration: Other (today) Symptom Onset: Gradual Symptom Course: Unchanged Activities at Onset: Light Context: Home Past Medical History - Provider Review Nursing Documentation Reviewed: Yes - Infectious Disease Hx of Infectious Diseases: None - Cardiac Hx Cardiac Disorders: No - Pulmonary Hx Respiratory Disorders: No - Neurological Hx Neurological Disorder: No - HEENT Hx HEENT Disorder: No - Renal Hx Renal Disorder: No - Endocrine/Metabolic Hx Endocrine Disorders: No - Hematological/Oncological Hx Blood Disorders: No - Integumentary Hx Dermatological Disorder: Yes Other/Comment: Abcess removed from R arm - Musculoskeletal/Rheumatological Hx Falls: No - Gastrointestinal Hx Gastrointestinal Disorders: Yes (colitis) Hx Pancreatitis: Yes - Genitourinary/Gynecological Hx Genitourinary Disorders: No - Psychiatric Hx Psychophysiologic Disorder: No Hx Substance Use: Yes (michael) - Surgical History Other/Comment: Abcess removal from R arm - Anesthesia Hx Anesthesia: Yes Hx Anesthesia Reactions: No Hx Malignant Hyperthermia: No Family/Social History - Physician Review Nursing Documentation Reviewed: Yes Family/Social History: Unknown Family HX Smoking Status: Light Smoker < 10 Cigarettes Daily Hx Alcohol Use: Yes Hx Substance Use: Yes (michael) Substance used: marijuana; percocet Allergies/Home Meds Allergies/Adverse Reactions: Allergies No Known Allergies Allergy (Verified 04/29/18 20:02) Home Medications: Home Meds Medication Instructions Recorded Confirmed No Known Home Med 04/29/18 05/01/18 Review of Systems - Physician Review All systems were reviewed & negative as marked: Yes - Review of Systems Constitutional: Normal Eyes: Normal ENT: Normal Respiratory: Normal. absent: SOB, Cough Cardiovascular: Normal. absent: Chest Pain Gastrointestinal: Abdominal Pain, Nausea. absent: Diarrhea, Vomiting Genitourinary Male: Normal. absent: Dysuria, Frequency Musculoskeletal: Normal. absent: Back Pain, Neck Pain Skin: Normal. absent: Rash Neurological: Normal. absent: Headache, Dizziness Endocrine: Normal Hemo/Lymphatic: Normal Psychiatric: Normal Physical Exam Vital Signs Reviewed: Yes Vital Signs Temp Pulse Resp BP Pulse Ox 05/01/18 18:50 99.1 F 63 18 139/97 H 100 Temperature: Afebrile Blood Pressure: Hypertensive Pulse: Regular Respiratory Rate: Normal Appearance: Positive for: Well-Appearing, Non-Toxic, Comfortable Pain Distress: None Mental Status: Positive for: Alert and Oriented X 3 - Systems Exam Head: Present: Atraumatic, Normocephalic Pupils: Present: PERRL Extroacular Muscles: Present: EOMI Conjunctiva: Present: Normal Mouth: Present: Moist Mucous Membranes Neck: Present: Normal Range of Motion Respiratory/Chest: Present: Clear to Auscultation, Good Air Exchange. No: Respiratory Distress, Accessory Muscle Use Cardiovascular: Present: Regular Rate and Rhythm, Normal S1, S2. No: Murmurs Abdomen: Present: Tenderness (upper abdominal tenderness), Guarding (voluntary) . No: Distention, Peritoneal Signs, Rebound Back: Present: Normal Inspection Upper Extremity: Present: Normal Inspection. No: Cyanosis, Edema Lower Extremity: Present: Normal Inspection. No: Edema Neurological: Present: GCS=15, CN II-XII Intact, Speech Normal Skin: Present: Warm, Dry, Normal Color. No: Rashes Psychiatric: Present: Alert, Oriented x 3, Normal Insight, Normal Concentration Medical Decision Making ED Course and Treatment: 05/01/18 20:01 Impression: 22 year old male presents to the emergency department complaining of abdominal pain and nausea. Plan: -- VBG -- Labs -- Chest X-ray -- Pepcid -- Sodium Chloride -- Toradol -- Zofran -- Reassess and disposition Progress Notes: 05/01/18 22:14: Chest X- Ray read and interpreted by me shows no acute disease. 05/01/18 22:39: Case discussed in detail with Dr. Womack who accepts patient back to his service. Patient signed out AMA and returned for recurring symptoms of abdominal pain. president & ceo to evaluate patient at Dr. Womack's request. - Lab Interpretations Lab Results: 05/01/18 20:12 05/01/18 20:12 Lab Results 05/01/18 20:12: pO2 61 H, VBG pH 7.42, VBG pCO2 36.0 L, VBG HCO3 23.4, VBG Total CO2 24.5, VBG O2 Sat (Calc) 94.4 H, VBG Base Excess -0.7 L, VBG Potassium 3.7, Sodium 136.0, Chloride 104.0, Glucose 91, Lactate 1.5, FiO2 21.0, Venous Blood Potassium 3.7 05/01/18 20:12: WBC 14.5 H, RBC 5.32, Hgb 15.1, Hct 39.8 L, MCV 74.8 L, MCH 28.4 , MCHC 37.9 H, RDW 14.3, Plt Count 209, MPV 10.0 05/01/18 20:12: Sodium 138, Chloride 104, Potassium 3.6, Carbon Dioxide 19 L, Anion Gap 19, BUN 12, Creatinine 0.7 L, Est GFR ( Amer) > 60, Est GFR ( Non-Af Amer) > 60, Random Glucose 93, Calcium 9.2, Total Bilirubin 1.3, AST 45, ALT 31, Alkaline Phosphatase 57, Total Protein 7.6, Albumin 4.6, Globulin 3.1, Albumin/Globulin Ratio 1.5, Lipase 140 - RAD Interpretation Radiology Orders: 05/01/18 19:43 CHEST PORTABLE [RAD] Stat - Medication Orders Current Medication Orders: Lorazepam (Ativan) 1 mg IVP ONCE ONE Stop: 05/01/18 22:38 Pantoprazole Sodium (Protonix Inj) 40 mg IVP ONCE STA Stop: 05/01/18 22:37 Discontinued Medications Famotidine (Pepcid) 20 mg IVP STAT STA Stop: 05/01/18 19:56 Last Admin: 05/01/18 20:29 Dose: 20 mg IVP Administration Document 05/01/18 20:29 SS (Rec: 05/01/18 20:29 SS [id number]) Charges for Administration # of IVP Administrations 1 Sodium Chloride (Sodium Chloride 0.9%) 1,000 mls @ 999 mls/hr IV .Q1H1M STA Stop: 05/01/18 20:44 Last Admin: 05/01/18 20:30 Dose: 999 mls/hr eMAR Start Stop Document 05/01/18 20:30 SS (Rec: 05/01/18 20:30 SS [id number]) Intravenous Solution Start Date 05/01/18 Start Time 20:30 End Date 05/01/18 End time 21:30 Total Infusion Time 60 Ketorolac Tromethamine (Toradol) 30 mg IVP ONCE ONE Stop: 05/01/18 19:56 Last Admin: 05/01/18 20:29 Dose: 30 mg MAR Pain Assessment Document 05/01/18 20:29 SS (Rec: 05/01/18 20:30 SS [id number]) Pain Reassessment Is this a pain reassessment? Yes Sleep Is patient sleeping during reassessment? No Presence of Pain Presence of Pain Yes Pain Scale Used Pain Scale Used Numeric Location Pain Location Body Site Abdomen Description Description Constant Intensity of Pain at present 10 IVP Administration Document 05/01/18 20:29 SS (Rec: 05/01/18 20:30 SS [id number]) Charges for Administration # of IVP Administrations 1 Ondansetron HCl (Zofran Inj) 4 mg IVP ONCE ONE Stop: 05/01/18 19:56 Last Admin: 05/01/18 20:30 Dose: 4 mg IVP Administration Document 05/01/18 20:30 SS (Rec: 05/01/18 20:30 SS [id number]) Charges for Administration # of IVP Administrations 1 Ondansetron HCl (Zofran Inj) 4 mg IVP ONCE ONE Stop: 05/01/18 20:58 Last Admin: 05/01/18 20:55 Dose: 4 mg IVP Administration Document 05/01/18 20:55 SS (Rec: 05/01/18 21:55 SS [id number]) Charges for Administration # of IVP Administrations 1 - Scribe Statement The provider has reviewed the documentation as recorded by the Scribcasey Banks All medical record entries made by the Scribe were at my direction and personally dictated by me. I have reviewed the chart and agree that the record accurately reflects my personal performance of the history, physical exam, medical decision making, and the department course for this patient. I have also personally directed, reviewed, and agree with the discharge instructions and disposition. Disposition/Present on Arrival - Present on Arrival Any Indicators Present on Arrival: No History of DVT/PE: No History of Uncontrolled Diabetes: No Urinary Catheter: No History of Decub. Ulcer: No History Surgical Site Infection Following: None - Disposition Have Diagnosis and Disposition been Completed?: Yes Diagnosis: Intractable abdominal pain, Gastritis Disposition: HOSPITALIZED Disposition Time: 22:36 Patient Plan: Observation Patient Problems: Current Active Problems Problem Status Onset Gastritis Acute Intractable abdominal pain Acute Condition: STABLE Referrals: Ron Womack MD [Primary Care Provider] - Follow up with primary Forms: [employer] (Kiswahili)
[2018-05-01 20:26] LABS: HEMOGLOBIN 15.1 g/dL (14.0-18.0); MEAN CELL VOLUME 74.8 fl (80.0-105.0); MEAN CORPUSCULAR HEMOGLOBIN 28.4 pg (25.0-35.0); MEAN CORPUSCULAR HGB CONC 37.9 g/dl (31.0-37.0); RBC 5.32 10^6/uL (3.5-6.1); RED CELL DISTRIBUTION WIDTH 14.3 % (11.5-14.5); WHITE BLOOD COUNT 14.5 10^3/ul (4.5-11.0)
[2018-05-01 20:27] LABS: VENOUS BLOOD GAS BASE EXCESS -0.7 mmol/L (0.0-2.0); VENOUS BLOOD GAS PO2 61 mm/Hg (30-55); VENOUS BLOOD PH 7.42 (7.32-7.43)
[2018-05-01 20:39] LABS: ALB/GLOB RATIO 1.5 (1.1-1.8); ALBUMIN 4.6 g/dL (3.0-4.8); ALT/SGPT 31 U/L (7-56); AST/SGOT 45 U/L (17-59); BLOOD UREA NITROGEN 12 mg/dL (7-21); CALCIUM 9.2 mg/dL (8.4-10.5); GFR AFRICAN-AMERICAN > 60; GFR NON-AFRICAN AMERICAN > 60; LIPASE 140 U/L (23-300)
[2018-05-02 00:29] LABS: PH,URINE 7.5 (4.7-8.0); URINE BILIRUBIN NEGATIVE (NEGATIVE); URINE BLOOD NEGATIVE (NEGATIVE); URINE GLUCOSE (UA) NEGATIVE (NEGATIVE); URINE LEUKOCYTE ESTERASE NEGATIVE Leu/uL (NEGATIVE); URINE PROTEIN NEGATIVE mg/dL (<30 mg/dL); URINE UROBILINOGEN 0.2 E.U./dL (<1 E.U./dL)
[2018-05-02 00:34] LABS: URINE APPEARANCE CLEAR (CLEAR); URINE COLOR YELLOW (YELLOW)
[2018-05-02] MEDS ORDERED: Sodium Chloride 0.9% 1,000 ML IV STA (00:36)
--- NOTE | 2018-05-02 00:56 | CP.PCM.HP ---
History of Present Illness - History of Present Illness History of Present Illness: Roman Brown PGY-1, Internal Medicine Resident, History and Physical for Dr Womack. CC: "I've been vomiting, and my poop is black" HPI: Pt is a 22 yo male with a PMH of pancreatitis, opiod use disorder, and alcohol use disorder who was admitted to [facility] and signed out AMA, presents to the ED complaining of intractable abdominal pain, nausea, vomiting and jet black stool since this morning. Pt reports having feeling feverish and having chills during this time. He states that he has 10/10 burning upper abdominal pain with vomiting containing a minimal about of blood. Pt reports a history of percocet use. He states that the pain is alleviated by laying on his stomach and worsened by sitting up. He states he is unable to eat because of the vomiting. Pt reports black stool many times per day with associated yellow mucus, denies BRBPR. He last used marijuana Monday, denies opiate use in the last 2 days. 12 point ROS asked and pertinent positives and negatives added to HPI. PMH: Opiod use disorder, alcohol use disorder, Pancreatitis PSH: none FH: Mother- 49yo, no significant medical history. Son- 4yo asthma. Father- 50yo , no significant medical history. Social: Opiod use disorder, alcohol use disorder, denies tobacco. Works at [employer] Home meds: denies Allergies: NKDA, no food or environmental allergies Labs: CBC: WBC 14.5 CMP: Cr 0.7 UA: Ketones 15 Toxicology: pending FOBT: Pending Imaging: CXR: awaiting official read Present on Admission - Present on Admission Any Indicators Present on Admission: No Review of Systems - Review of Systems Review of Systems: 12 point ROS obtained and added to HPI where appropriate. Past Patient History - Infectious Disease Hx of Infectious Diseases: None - Past Social History Smoking Status: Light Smoker < 10 Cigarettes Daily - CARDIAC Hx Cardiac Disorders: No - PULMONARY Hx Respiratory Disorders: No - NEUROLOGICAL Hx Neurological Disorder: No - HEENT Hx HEENT Problems: No - RENAL Hx Chronic Kidney Disease: No - ENDOCRINE/METABOLIC Hx Endocrine Disorders: No - HEMATOLOGICAL/ONCOLOGICAL Hx Blood Disorders: No - INTEGUMENTARY Hx Dermatological Problems: Yes Other/Comment: Abcess removed from R arm - MUSCULOSKELETAL/RHEUMATOLOGICAL Hx Falls: No - GASTROINTESTINAL Hx Gastrointestinal Disorders: Yes (colitis) Hx Pancreatitis: Yes - GENITOURINARY/GYNECOLOGICAL Hx Genitourinary Disorders: No - PSYCHIATRIC Hx Psychophysiologic Disorder: No Hx Substance Use: Yes (michael) - SURGICAL HISTORY Other/Comment: Abcess removal from R arm - ANESTHESIA Hx Anesthesia: Yes Hx Anesthesia Reactions: No Hx Malignant Hyperthermia: No Meds Allergies/Adverse Reactions: Allergies Allergy/AdvReac Type Severity Reaction Status Date / Time No Known Allergies Allergy Verified 04/29/18 20:02 Physical Exam - Constitutional Appears: In Acute Distress Additional comments: pt laying on side, looking at phone upon arrival - Head Exam Head Exam: ATRAUMATIC, NORMOCEPHALIC - Eye Exam Eye Exam: EOMI - ENT Exam ENT Exam: Mucous Membranes Moist - Respiratory Exam Respiratory Exam: Clear to Auscultation Bilateral, NORMAL BREATHING PATTERN. absent: Rales, Rhonchi, Wheezes, Stridor - Cardiovascular Exam Cardiovascular Exam: REGULAR RHYTHM, RRR, +S1, +S2. absent: Diastolic murmur, Irregular Rhythm, JVD, Rubs, Systolic Murmur - GI/Abdominal Exam GI & Abdominal Exam: Normal Bowel Sounds, Soft, Tenderness. absent: Rebound, Rigid - Extremities Exam Extremities exam: Positive for: full ROM, normal inspection. Negative for: calf tenderness, pedal edema - Neurological Exam Neurological exam: Alert, CN II-XII Intact, Oriented x3 - Skin Skin Exam: Normal Color Results - Vital Signs Recent Vital Signs: Last Vital Signs Temp 99.1 F 05/01/18 18:50 Pulse 63 05/01/18 18:50 Resp 18 05/01/18 18:50 BP 139/97 H 05/01/18 18:50 Pulse Ox 100 05/01/18 18:50 - Labs Result Diagrams: 05/01/18 20:12 05/01/18 20:12 Labs: Laboratory Results - last 24 hr 05/01/18 23:45 Urine Color Yellow Urine Appearance Clear Urine pH 7.5 Ur Specific [place] 1.010 Urine Protein Negative Urine Glucose (UA) Negative Urine Ketones 15 H Urine Blood Negative Urine Nitrate Negative Urine Bilirubin Negative Urine Urobilinogen 0.2 Ur Leukocyte Esterase Negative Assessment & Plan - Assessment and Plan (Free Text) Assessment: Pt is a 22 yo male with a PMH of pancreatitis, opiod use disorder, and alcohol use disorder who was admitted to [facility] and signed out AMA, presents to the ED complaining of intractable abdominal pain, nausea, vomiting and jet black stool since this morning. Plan: Pt is a 22 yo male with a PMH of pancreatitis, opiod use disorder, and alcohol use disorder who was admitted to [facility] and signed out AMA, presents to the ED complaining of intractable abdominal pain, nausea, vomiting and jet black stool since this morning. Plan: Intractable Abdominal pain and Vomiting, Melena -secondary to possible opiod withdrawal -Zofran 4mg q4 for nausea -started IVF NS 125ml/hr -started Vanc 1g IVPB q12, Zosyn 3.375 q6 IVPB -keep pt NPO, due to vomiting -continue to follow CMP, CBC -ordered Procal levels -Blood culture, awaiting results -GI consult Dr Lowe, appreciate recommendations -ID consult Dr Grullon, appreciate recommendations GI ppx -started protonix 40mg IVP DVT ppx -started SCDs -started Lovenox Pt seen, examined, and assessent and plan discussed with Dr Womack. Roman Brown PGY-1.
[2018-05-02] MEDS: Vancomycin 1gm in NS 250ml 1 GM/250 ML BAG IVPB SCH ×2 (01:07→09:21)
[2018-05-02] MEDS ORDERED: DiphenhydrAMINE 50 mg/ml Inj IVP ONE (01:19)
[2018-05-02 01:23] LABS: BARBITURATES, UR NEGATIVE (NEGATIVE); BENZODIAZEPINES, UR NEGATIVE (NEGATIVE); OPIATES, UR NEGATIVE (NEGATIVE); PHENCYCLIDINE, UR NEGATIVE (NEGATIVE)
[2018-05-02] MEDS: Piperacillin/Tazobact 3.375 gm 100 ML IVPB SCH ×2 (05:12→12:57)
[2018-05-02 07:07] LABS: HEMOGLOBIN 14.4 g/dL (14.0-18.0); MEAN CELL VOLUME 74.8 fl (80.0-105.0); MEAN CORPUSCULAR HEMOGLOBIN 27.7 pg (25.0-35.0); MEAN CORPUSCULAR HGB CONC 37.1 g/dl (31.0-37.0); MEAN PLATELET VOLUME 10.4 fl (7.0-11.0); RBC 5.19 10^6/uL (3.5-6.1); WHITE BLOOD COUNT 11.9 10^3/ul (4.5-11.0)
[2018-05-02 07:28] LABS: ALB/GLOB RATIO 1.5 (1.1-1.8); ALBUMIN 4.1 g/dL (3.0-4.8); ALT/SGPT 27 U/L (7-56); AST/SGOT 31 U/L (17-59); BLOOD UREA NITROGEN 11 mg/dL (7-21); CALCIUM 8.8 mg/dL (8.4-10.5); GFR AFRICAN-AMERICAN > 60; GFR NON-AFRICAN AMERICAN > 60
[2018-05-02] MEDS ORDERED: Potassium Chloride 20 mEq ER Tab PO STA (07:31)
[2018-05-02 08:10] VITALS: BP 137/94; PULSE 54; RESP 20; TEMP 99.6; O2SAT 98
[2018-05-02] MEDS ORDERED: Sodium Chloride 0.9% 1,000 ML IV SCH (08:15)
[2018-05-02] MEDS ORDERED: Potassium Phosphate 15 MMOLE in Dextrose 5% In Water 250 ML IVPB ONE (08:37)
[2018-05-02] MEDS ORDERED: Enoxaparin 40 mg Syringe SC SCH (10:00)
--- NOTE | 2018-05-02 10:45 | RAD ---
Date of service: 05/01/2018 HISTORY: abdominal pain COMPARISON: No prior. FINDINGS: LUNGS: No active pulmonary disease. PLEURA: No significant pleural effusion identified, no pneumothorax apparent. CARDIOVASCULAR: Normal. OSSEOUS STRUCTURES: No significant abnormalities. VISUALIZED UPPER ABDOMEN: Normal. OTHER FINDINGS: None. IMPRESSION: No active disease.
[2018-05-02] MEDS ORDERED: Vancomycin 25 MG/ML PO SCH (14:00)
--- NOTE | 2018-05-02 14:02 | DS ---
FINAL PROGRESS NOTE AND DISCHARGE SUMMARY DATE: 05/02/2018 SUBJECTIVE: The patient is a 22-year-old male who was seen today in room 370, bed 1. The patient yesterday signed himself out against medical advice, but returned to the ER later on because of increasing and recurring abdominal pain. The patient stated that his symptoms started getting significantly better yesterday so he left the hospital and signed himself out but came back again with recurrent increasing abdominal pain last night, please refer to the history and physical examination dictated by the medical record specialist. The patient is now seen today in room 370 bed 1. The patient is lying in the bed. The patient states that he is feeling significantly, significantly better. The patient denies any nausea and vomiting. Reports significantly decreased abdominal pain. The patient is lying in the bed comfortably. REVIEW OF SYSTEMS: The 13-system review was done, pertinent positive and negative dictated above. OBJECTIVE: VITAL SIGNS: T-max 99.6; heart rate 78, 54, 55, 63; blood pressure 137/94, 135/95, 124/58; respirations 20; O2 sat 98%. HEENT: The patient's head examination, normocephalic and atraumatic. HEENT examination shows pink conjunctivae. Anicteric sclerae. No oropharyngeal lesion. No neck rigidity. CHEST: Kyphosis. LUNGS: Shows no rales, crackles or wheezing. CARDIOVASCULAR: S1, S2. Regular rhythm. ABDOMEN: Soft completely, nontender. No voluntary guarding noted. GENITALIA: Male. RECTAL: Deferred. EXTREMITIES: Shows no pitting edema, no calf tenderness, no Kaycee's sign, no costovertebral angle tenderness. No hepatosplenomegaly noted. NEUROLOGIC: The patient is alert, awake, oriented x3. MUSCULOSKELETAL: Examination shows a body mass index of 22. DIAGNOSTICS: 05/01 and 05/02, WBC count is 14.5 down to 11.9, hemoglobin/hematocrit 15.1 and 39.8 and 14.4 and 38.8, platelet 209 and 204. Lactic acid was normal at 1.5. Chemistry was reviewed. Potassium 3.5, phosphorus 2.4. LFTs are normal. Urinalysis: 15 ketones. Stool occult blood positive. Urine drug screen positive for cannabinoids. Stool for C. diff shows C diff antigen positive. FINAL IMPRESSION AND PLAN & DISCHARGE DIAGNOSES: 1. Resolving intractable abdominal pain and resolving intractable nausea and vomiting. 2. Resolving marijuana-induced hyperemesis syndrome. 3. Stool occult blood positive, etiology undetermined. 4. History of poor compliance. 5. History of nicotine, alcohol, marijuana abuse and dependence. 6. Resolving leukocytosis. 7. Status post lactic acidosis. 8. Hypokalemia, hypophosphatemia. 9. Ketonuria. 10. Active marijuana and cannabinoids use with urine drug screen positive for cannabinoids. 11. Clostridium difficile associated colitis with positive Clostridium difficile antigen. 12. Questionable and possible systemic inflammatory response syndrome with granulocytosis and lymphopenia. 13. Hypomagnesemia. 14. Mild mural thickening versus underdistention of the distal esophagus. 15. Colonic segmental area of mild mural thickening versus underdistention. 16. Trace pelvic fluid. PLAN: At this time, the patient will be put on contact isolation. The patient has been ordered repeat C. Diff. The patient is started on p.o. vancomycin by infectious disease. The patient has been ordered repeat labs. The patient has been ordered repeat stool for occult blood. The patient is continued on IV fluid. Repeat CBC, CMP, LFT, magnesium have been ordered. Consultation with Gastroenterology and Infectious Disease. CURRENT MEDICATIONS: Ativan 0.5 mg IV every 6 hours p.r.n., Flagyl 500 p.o. every 8 hours which is to be stopped because the patient is already on is already on; Lovenox 40 subcu daily. The patient is given K-Phos rider. The patient is on Protonix 40 IV every 12 hours, Reglan 10 IV every 6 hours, IV fluids 100-125 mL an hour. The patient is ordered Tylenol p.r.n. The patient is started on 250 four times a day., Zofran 4 IV every 4 hours, Zosyn 3.375 g IV every [address] Grullon. The patient started on liquid diet. The patient is put on contact isolation. Stool occult blood ordered. The patient updated about his condition and diagnosis.. The patient updated about his condition, diagnosis, treatment plan, management plan at length. The patient was advised and explained all details, all questions concerned answered. PATIENT SIGNED OUT AMA, DESPITE MY ADVISE NOT TO SIGN OUT AMA. PATIENT EXPLAINED ALL RISKS AND CONSEQUENCES OF SIGNING OUT AGAINST MEDICAL ADVISE. Dictated and electronically signed, not read. Ron Womack MD [facility]
--- NOTE | 2018-05-02 15:42 | CP.PCM.CON ---
History of Present Illness - History of Present Illness History of Present Illness: GI Consult Note for Dr. Charan Wallace Tima Trujillo, PGY-3 IM This is a 22 yo male with a PMH of pancreatitis, opiod use disorder, and alcohol use disorder who represented to [facility] with complains of nausea, emesis, possible hematemesis, and now tarry black stools. Was admitted 2 days prior, left AMA yesterday, but reports after further pain and diarrhea at home, became worried and represented. GI consulted for diarrhea, emesis, possible GI bleed, and elevated WBCs. On initial admission, WBCs peaked at 22.9, but have since been downtrending for last 2 days. Patient reports last attempt to eat 2 days prior, but does admit to smoking 1-2 joints of marijuana after returning home yesterday. Denies any alcohol within 3 weeks, denies any opiates within last 1 week, and reports 1-2 mini-cigars daily (last used prior to last admission). On further questioning, pt reports only small amount of blood on top of last bout of emesis prior to last admission, none after AMA, and denies constance blood in stools. Denies further diarrhea today. Feeling better on exam and asking when he can go home. Denies fevers, chills, current emesis, current diarrhea, BRBPR, dizziness, lightheadedness, weakness. All other ROS in 12-system review negative. PMH: Pancreatitis, opiod use disorder, alcohol use disorder PSH: none FH: Father- 50yo, no significant medical history. Mother- 49yo, no significant medical history. Son- 4yo asthma. Social: Opiod use disorder, alcohol use disorder, denies tobacco. Works at [employer] PMD: Dr. Womack Review of Systems - Review of Systems All systems: reviewed and no additional remarkable complaints except (as per HPI ) Past Patient History - Infectious Disease Hx of Infectious Diseases: None - Past Social History Smoking Status: Light Smoker < 10 Cigarettes Daily - CARDIAC Hx Cardiac Disorders: No - PULMONARY Hx Respiratory Disorders: No - NEUROLOGICAL Hx Neurological Disorder: No - HEENT Hx HEENT Problems: No - RENAL Hx Chronic Kidney Disease: No - ENDOCRINE/METABOLIC Hx Endocrine Disorders: No - HEMATOLOGICAL/ONCOLOGICAL Hx Blood Disorders: No - INTEGUMENTARY Hx Dermatological Problems: Yes Other/Comment: Abcess removed from R arm - MUSCULOSKELETAL/RHEUMATOLOGICAL Hx Falls: No - GASTROINTESTINAL Hx Gastrointestinal Disorders: Yes (colitis) Hx Pancreatitis: Yes - GENITOURINARY/GYNECOLOGICAL Hx Genitourinary Disorders: No - PSYCHIATRIC Hx Psychophysiologic Disorder: No Hx Substance Use: Yes (michael) - SURGICAL HISTORY Other/Comment: Abcess removal from R arm - ANESTHESIA Hx Anesthesia: Yes Hx Anesthesia Reactions: No Hx Malignant Hyperthermia: No Meds Allergies/Adverse Reactions: Allergies Allergy/AdvReac Type Severity Reaction Status Date / Time No Known Allergies Allergy Verified 04/29/18 20:02 - Medications Medications: Current Medications Acetaminophen (Tylenol 325mg Tab) 650 mg PO Q6H PRN PRN Reason: Fever >100.4 F Enoxaparin Sodium (Lovenox) 40 mg SC DAILY CLARISSE PRN Reason: Protocol Last Admin: 05/02/18 09:21 Dose: 40 mg Sodium Chloride (Sodium Chloride 0.9%) 1,000 mls @ 100 mls/hr IV .Q10H CLARISSE Last Admin: 05/02/18 09:37 Dose: 100 mls/hr Piperacillin Sod/Tazobactam Sod (Zosyn 3.375 In Ns 100ml) 100 mls @ 200 mls/hr IVPB Q6 CLARISSE PRN Reason: Protocol Stop: 05/11/18 18:01 Lorazepam (Ativan) 0.5 mg IVP Q6H PRN; Protocol PRN Reason: Anxiety Last Admin: 05/02/18 09:20 Dose: 0.5 mg Metoclopramide HCl (Reglan) 10 mg IVP Q6H CLARISSE Last Admin: 05/02/18 12:54 Dose: 10 mg Ondansetron HCl (Zofran Inj) 4 mg IVP Q4H PRN PRN Reason: Nausea/Vomiting Last Admin: 05/02/18 05:12 Dose: 4 mg Pantoprazole Sodium (Protonix Inj) 40 mg IVP Q12H CLARISSE Last Admin: 05/02/18 06:32 Dose: 40 mg Vancomycin HCl (Vancocin 25 Mg/Ml (Oral Use)) 250 mg PO QID CLARISSE PRN Reason: Protocol Stop: 05/11/18 14:01 Last Admin: 05/02/18 15:19 Dose: 250 mg Physical Exam - Constitutional Appears: Non-toxic, No Acute Distress - Head Exam Head Exam: ATRAUMATIC, NORMAL INSPECTION, NORMOCEPHALIC - Eye Exam Eye Exam: EOMI, Normal appearance. absent: Conjunctival injection, Scleral icterus Pupil Exam: absent: Fixed, Irregular - ENT Exam ENT Exam: Mucous Membranes Moist, Normal Exam - Neck Exam Neck exam: Positive for: Normal Inspection - Respiratory Exam Respiratory Exam: Clear to Auscultation Bilateral, NORMAL BREATHING PATTERN. absent: Accessory Muscle Use, Chest Wall Tenderness, Decreased Breath Sounds, Rales, Rhonchi, Wheezes, Respiratory Distress - Cardiovascular Exam Cardiovascular Exam: REGULAR RHYTHM, RRR, +S1, +S2. absent: Bradycardia, Tachycardia, Irregular Rhythm, JVD - GI/Abdominal Exam GI & Abdominal Exam: Normal Bowel Sounds, Soft. absent: Diminished Bowel Sounds , Distended, Firm, Guarding, Hyperactive Bowel Sounds, Hypoactive Bowel Sounds, Rigid, Tenderness - Rectal Exam Rectal Exam: Deferred (pt refused rectal exam) - Extremities Exam Extremities exam: Positive for: normal capillary refill, normal inspection, pedal pulses present. Negative for: calf tenderness, pedal edema, tenderness - Back Exam Back exam: absent: CVA tenderness (L), CVA tenderness (R) - Neurological Exam Neurological exam: Alert, Oriented x3 - Psychiatric Exam Psychiatric exam: Normal Affect, Normal Mood - Skin Skin Exam: Dry, Intact, Normal Color, Warm Results - Vital Signs Recent Vital Signs: Last Vital Signs Temp 99.6 F 05/02/18 08:10 Pulse 54 L 05/02/18 08:10 Resp 20 05/02/18 08:10 BP 137/94 H 05/02/18 08:10 Pulse Ox 98 05/02/18 08:10 - Labs Result Diagrams: 05/02/18 06:20 05/02/18 06:20 Labs: Laboratory Results - last 24 hr 05/01/18 05/02/18 05/02/18 23:45 00:50 06:20 WBC 11.9 H RBC 5.19 Hgb 14.4 Hct 38.8 L MCV 74.8 L MCH 27.7 MCHC 37.1 H RDW 14.0 Plt Count 204 MPV 10.4 Sodium Potassium Chloride Carbon Dioxide Anion Gap BUN Creatinine Est GFR ( Amer) Est GFR (Non-Af Amer) Random Glucose Calcium Phosphorus Magnesium Total Bilirubin AST ALT Alkaline Phosphatase Total Protein Albumin Globulin Albumin/Globulin Ratio Urine Color Yellow Urine Appearance Clear Urine pH 7.5 Ur Specific [place] 1.010 Urine Protein Negative Urine Glucose (UA) Negative Urine Ketones 15 H Urine Blood Negative Urine Nitrate Negative Urine Bilirubin Negative Urine Urobilinogen 0.2 Ur Leukocyte Esterase Negative Stool Occult Blood Urine Opiates Screen Negative Urine Methadone Screen Negative Ur Barbiturates Screen Negative Ur Phencyclidine Scrn Negative Ur Amphetamines Screen Negative U Benzodiazepines Scrn Negative U Oth Cocaine Metabols Negative U Cannabinoids Screen Positive H 05/02/18 05/02/18 06:20 09:30 WBC RBC Hgb Hct MCV MCH MCHC RDW Plt Count MPV Sodium 138 Potassium 3.5 L Chloride 107 Carbon Dioxide 20 L Anion Gap 16 BUN 11 Creatinine 0.7 L Est GFR ( Amer) > 60 Est GFR (Non-Af Amer) > 60 Random Glucose 95 Calcium 8.8 Phosphorus 2.4 L Magnesium 2.1 Total Bilirubin 1.4 H AST 31 ALT 27 Alkaline Phosphatase 52 Total Protein 6.9 Albumin 4.1 Globulin 2.8 Albumin/Globulin Ratio 1.5 Urine Color Urine Appearance Urine pH Ur Specific [place] Urine Protein Urine Glucose (UA) Urine Ketones Urine Blood Urine Nitrate Urine Bilirubin Urine Urobilinogen Ur Leukocyte Esterase Stool Occult Blood Positive H Urine Opiates Screen Urine Methadone Screen Ur Barbiturates Screen Ur Phencyclidine Scrn Ur Amphetamines Screen U Benzodiazepines Scrn U Oth Cocaine Metabols U Cannabinoids Screen Assessment & Plan - Assessment and Plan (Free Text) Assessment: This is a 22 yo male with a PMH of pancreatitis, opiod use disorder, and alcohol use disorder who represented to [facility] with complains of nausea, emesis, possible hematemesis, and now tarry black stools. Was admitted 2 days prior, left AMA yesterday, but reports after further pain and diarrhea at home, became worried and represented. GI consulted for diarrhea, emesis, possible GI bleed, and elevated WBCs. Plan: Ddx: viral enteritis vs collitis vs opioid and/or EtOH withdrawal vs Cannabinoid hyperemesis syndrome -CT abd/pelvis with IV contrast obtained at last admit read as minimal mural thickening/colitis vs under-distension of large bowel by [facility]Rad, no acute issue as per in-house radiology -Alcohol and opiates negative on admission screening, positive for Cannabinoids ; repeat screening identical, pt admits smoking more marijuana after AMA prior to representation -Leukocytosis inmproving since peak last admission (13 -> 22.9 -> 16.4 -> 14.5 - > 11.9 today), On Zosyn/Flagyl/Vanco, f/u cultures Stool for C diff positive, also positive for occult blood, but Hgb stable between last admission and this one, continue to monitor H&H -Reported episode of hematemesis as outpt, none witnessed since admission -Continue PPI, Reglan + PRN zofran for Nausea/Vomiting, IVF for adequate rehydration -Advanced from liquid diet to soft food, if tolerates then from GI standpoint stable for discharge to home on PO Vanco Will discuss with attending, Dr. Farrar (covering for Dr. Lowe).
[2018-05-02] MEDS ORDERED: Piperacillin/Tazobact 3.375 gm 100 ML IVPB SCH (18:00)
--- NOTE | 2018-05-03 02:48 | CON ---
DATE: 05/02/2018 This is a repeat dictation. Initial dictation was discarded. CHIEF COMPLAINT: Abdominal pain. HISTORY OF PRESENT ILLNESS: This is a 22-year-old male who was admitted with prior history of pancreatitis, polysubstance abuse. He signed against medical advise last night. He came back with abdominal pain. Etiology of abdominal pain not clear. No fevers. No chills. No chest pain. No headaches or blurred vision. PAST MEDICAL HISTORY: Significant for pancreatitis and polysubstance abuse. PAST SURGICAL HISTORY: Significant for right arm surgery. ALLERGIES: THE PATIENT HAS NO KNOWN ALLERGIES. MEDICATIONS: Noted and reviewed. PHYSICAL EXAMINATION: VITAL SIGNS: The patient is in bed with a temperature of 98, blood pressure is 137/90, respiratory rate of 18. HEENT: Unremarkable. NECK: Supple. LUNGS: Decreased breath sounds. HEART: Normal S1 and S2. ABDOMEN: Tenderness. No rebound or guarding. No masses. LABORATORY DATA: Reveals the patient has white count of 14,000, hemoglobin of 15 and platelets of 209. Chemistries are noted. Microbiology reveals C. diff with positive antigen. ASSESSMENT AND PLAN: This is a 22-year-old with abdominal pain. Etiology unclear. I initially started the patient on Zosyn and p.o. vancomycin. The patient is discharged to sign at AMA again going to the notes at this time in a repeat consultation. Jonathan Grullon MD
== END 2018-05-02 16:40 | disposition left against medical advice (07) | DRG 372 ==
LOC: ED 18:39 → ERH 22:38 → UNDOADMIN 22:38 → ERH 22:54 → 3RSO 05-02 00:39 → ERH 05-02 09:08 → 3RSO 05-02 09:08
PROVIDERS: ADMIT Internal Medicine; ATTEND Internal Medicine
DX: A04.72 Enterocolitis due to Clostridium difficile, not specified as recurrent (principal); E87.2 Acidosis; E83.42 Hypomagnesemia; E87.6 Hypokalemia; E83.39 Other disorders of phosphorus metabolism; F12.10 Cannabis abuse, uncomplicated; F10.10 Alcohol abuse, uncomplicated; R82.4 Acetonuria; Z87.891 Personal history of nicotine dependence